=== PATIENT | female | born 1945 | race Caucasian/White ===

== ENCOUNTER 2021-08-12 21:58 | Inpatient (IN) | payer OTHER ==
[~2021-08-12] VITALS: Ht 165.1 cm; Wt 137.5 kg
--- NOTE | 2021-08-12 22:15 | NUR ---
DR. ASHBY AT BEDSIDE, MSE IN PROGRESS.
[2021-08-12 22:34] LABS: HEMATOCRIT 33.9 % (31.2-41.9); MEAN CORPUSCULAR HEMOGLOBIN 28.6 uug (24.7-32.8); MEAN CORPUSCULAR VOLUME 90.9 fL (75.5-95.3); PLATELET COUNT (AUTO) 235 K/uL (179-408)
[2021-08-12 22:40] LABS: CREATININE 1.2 mg/dL (0.6-1.3); POTASSIUM 4.8 mmol/L (3.5-5.1)
[2021-08-13] VITALS (11 sets, daily range): BP systolic 102–130; BP diastolic 40–56
[2021-08-13] MEDS ORDERED: SWABABLE VALVE TRANSFER SET EA MC ONE (00:07)
[2021-08-13] MEDS ORDERED: IOHEXOL 350 100 ML INFUS..BTL ONE ×2 (00:08→01:05)
[2021-08-13] MEDS ORDERED: IV NORMAL SALINE 250 ML IV ONE (00:08)
[2021-08-13] MEDS ORDERED: ONDANSETRON 4 MG/2 ML VIAL IV PRN (00:15)
[2021-08-13] MEDS ORDERED: FUROSEMIDE 20 MG/2 ML VIAL IV ONE ×2 (00:15→01:45)
[2021-08-13] MEDS ORDERED: REMEDY ESSENTIAL ZINC PASTE 113 GM TP PRN (00:15)
[2021-08-13] MEDS ORDERED: ENOXAPARIN SODIUM 40 MG/0.4 ML DISP.SYRIN SQ ONE ×2 (00:15→12:22)
--- NOTE | 2021-08-13 01:34 | NUR ---
Patient is resting comfortably in bed with eyes closed. Breathing even and unlabored.
[2021-08-13] MEDS ORDERED: FUROSEMIDE 40 MG/4 ML VIAL ONE (01:55)
[2021-08-13] MEDS ORDERED: CEFTRIAXONE /D5W 50ML IVPB **ER PYXIS IV ONE (01:56)
[2021-08-13] MEDS: CEFTRIAXONE 1 G in IV DEXTROSE 5% 50 ML IV SCH (01:57)
--- NOTE | 2021-08-13 03:24 | NUR ---
PT IN BED ASLEEP, RESTING COMFORTABLY.
[2021-08-13] MEDS ORDERED: DIPH25TA62 PO (05:44)
[2021-08-13] MEDS ORDERED: INSU100V28 (05:44)
[2021-08-13] MEDS ORDERED: CRAN3875 PO (05:44)
[2021-08-13] MEDS ORDERED: ZINC50TA39 PO (05:44)
[2021-08-13] MEDS ORDERED: MAGN400O6 PO (05:44)
[2021-08-13] MEDS ORDERED: CELE200C PO (05:44)
[2021-08-13] MEDS ORDERED: LORA10TA7 PO (05:44)
[2021-08-13] MEDS ORDERED: ATOR40TA PO (05:44)
[2021-08-13] MEDS ORDERED: CALC-883 PO (05:44)
[2021-08-13] MEDS ORDERED: ACET-2154 PO ×2 (05:44)
[2021-08-13] MEDS ORDERED: INSU3INS9 SQ (05:44)
[2021-08-13] MEDS ORDERED: ASCO500P18 PO (05:44)
[2021-08-13] MEDS ORDERED: DOCU-141 PO (05:44)
[2021-08-13] MEDS ORDERED: ENOX40DI SQ (05:44)
[2021-08-13] MEDS ORDERED: FURO-152 PO (05:44)
[2021-08-13] MEDS ORDERED: GABA-532 PO (05:44)
[2021-08-13] MEDS ORDERED: ALLO100T PO (05:44)
[2021-08-13] MEDS ORDERED: AMLO10TA59 PO (05:44)
[2021-08-13] MEDS ORDERED: FERR325T28 PO (05:44)
[2021-08-13] MEDS ORDERED: LOSA100T31 PO (05:44)
[2021-08-13] MEDS ORDERED: PANT40TA49 PO (05:44)
[2021-08-13] MEDS ORDERED: OLAN5TAB3 PO (05:44)
[2021-08-13] MEDS ORDERED: METO25TA6 PO (05:44)
--- NOTE | 2021-08-13 06:36 | NUR ---
PT NOTED TO BE SOILED, PROPER PERINEAL CARE RENDERED. NOW NOTED TO BE CLEAN AND DRY. DENIES ANY PAIN/DISCOMFORT. NO SOB OR LABORED BREATHING.
--- NOTE | 2021-08-13 07:06 | NUR ---
GAVE REPORT TO HÉCTOR, MORNING SHIFT. PT NOTED TO BE RESTING IN BED, EYES CLOSED. NO SOB OR LABORED BREATHING. DENIES ANY BALLESTEROS/DIZZINESS. NO N/V/D.
--- NOTE | 2021-08-13 07:10 | NUR ---
Pt recieved, resting in bed w/ both eyes closed, reamines on non rebreather mask. NSR on monitor. NAD noted at this time.
--- NOTE | 2021-08-13 07:30 | NUR ---
Willie dockery in [facility] - 08/13/21 at [address] Quevedo and Dr Ellis made aware of stat ABG results.
--- NOTE | 2021-08-13 08:57 | NUR ---
RT at the bedside for ABG.
--- NOTE | 2021-08-13 09:00 | NUR ---
PCR swab for COVID collected and taken to LAB.
[2021-08-13 09:21] LABS: ABG BASE EXCESS 6.2 mmol/L; ABG HCO3 36.4 mmol/L; ABG PO2 93.5 mmHg (75.0-100.0); ABG SITE LEFT RADIAL; ABG TOTAL HEMOGLOBIN 11.9 G/dL (12.0-16.0); COHb 0.8 % (0.5-1.5); MetHb 0.2 % (0.0-1.5); O2Hb 95.5 % (94.0-97.0)
[2021-08-13] MEDS: FUROSEMIDE 20 MG/2 ML VIAL IV SCH (09:29)
--- NOTE | 2021-08-13 09:30 | NUR ---
Dr Quevedo and Dr Ellis made aware of pt's ABG results.
[2021-08-13] MEDS ORDERED: FUROSEMIDE 20 MG/2 ML VIAL ONE (09:32)
[2021-08-13 09:36] LABS: HEMATOCRIT 35.8 % (31.2-41.9); MEAN CORPUSCULAR HEMOGLOBIN 28.7 uug (24.7-32.8); MEAN CORPUSCULAR VOLUME 92.3 fL (75.5-95.3); PLATELET COUNT (AUTO) 243 K/uL (179-408)
--- NOTE | 2021-08-13 09:37 | NUR ---
Pt started on BIPAP by RT,settings 20/8, FIO2 @ 100%.
[2021-08-13 09:49] LABS: CREATININE 1.2 mg/dL (0.6-1.3)
--- NOTE | 2021-08-13 11:21 | NUR ---
Pt is awake and responsive, tolorating BIPAP well sofar , able to make needs known.
--- NOTE | 2021-08-13 11:45 | NUR ---
Dr Alvarenga seen pt and request change of status to ICU. Nursing track inspecting supervisor notified. No ICU beds available at this time and pt will stay in ER as ICU over flow.
[2021-08-13] MEDS: FAMOTIDINE. 20 MG/2 ML VIAL IV SCH ×2 (12:22→20:51)
[2021-08-13] MEDS: ACETAzolamide SODIUM 500 MG VIAL IV SCH (12:22)
[2021-08-13] MEDS ORDERED: ACETAzolamide SODIUM 500 MG VIAL ONE (12:22)
[2021-08-13] MEDS ORDERED: FAMOTIDINE. 20 MG/2 ML VIAL IV ONE (12:22)
[2021-08-13] MEDS: ENOXAPARIN SODIUM 40 MG/0.4 ML DISP.SYRIN SQ SCH (12:32)
--- NOTE | 2021-08-13 13:02 | NUR ---
Received pt. from E.R. department brought in by Merlene via destin. On bipap20/8, and 80% FIO2. On sinus rhythm once connected to monitor, sbp of 123/48. Neurologically pt. semi-lethargic responding only to painful stimuli. Sacral area with extended blanchable redness and small areas of nonblanchable dark red skin. Patient received on a soiled and soaked in urine diaper. Patient cleaned and aparicio catheter tamazight 18 inserted following sterile techniques followed. And attending will be notified of pt's arrival.
--- NOTE | 2021-08-13 13:47 | NUR ---
Dr. Payton informed of pt's arrival. Addendum: 08/13/21 at 1348 by SARABJIT MIN RN orders to insert aparicio and picc line received and implemented.
--- NOTE | 2021-08-13 19:10 | NUR ---
received patient obtunded . morbidly obese , on bipap 20 /8 rate of 20 60 f% fio2 , shari picc line , intact , aparicio draining yellow uring , iv on left upperarm intact , bilateral lower extremities , pinkish in color , not warm to touch , us tech aware of order tomight for duplex study of le
--- NOTE | 2021-08-13 19:30 | NUR ---
Pt rec'd on Respironics V60 on BIPAP mode settings 20/8, set. resp. rate 20 and FIO2-60%. No resp. distress noted at this time and pt appears to be tolerating settings well. V-60 alarm parameters have been checked and remain audible. BVM at bedside.
--- NOTE | 2021-08-13 20:20 | NUR ---
us tech is at bedside
--- NOTE | 2021-08-13 21:03 | NUR ---
DUUPLEX BLE DONE , PLS SEE NOTES OF RESULTS
[2021-08-13] MEDS ORDERED: DEXTROSE 50% 50 ML DISP.SYRIN IV PRN (21:45)
[2021-08-13] MEDS ORDERED: VANCOMYCIN IV 2,000 MG in IV DEXTROSE 5% 500 ML IV ONE (22:00)
[2021-08-13] MEDS ORDERED: VANCOMYCIN 1000 MG VIAL ONE (22:58)
[2021-08-14] VITALS (24 sets, daily range): BP systolic 83–139; BP diastolic 35–89
--- NOTE | 2021-08-14 00:30 | NUR ---
BA WRIGHT IS STARTED TO CONTROL TEMPERATURE
[2021-08-14] MEDS: BLOOD SUGAR DIAGNOSTIC 1 EACH STRIP VI SCH ×5 (00:32→23:31)
[2021-08-14] MEDS: INSULIN REGULAR, HUMAN 300 UNIT/3 ML VIAL SQ PRN ×4 (00:33→23:32)
[2021-08-14] MEDS: CEFTRIAXONE 1 G in IV DEXTROSE 5% 50 ML IV SCH (01:21)
[2021-08-14 06:05] LABS: HEMATOCRIT 35.5 % (31.2-41.9); MEAN CORPUSCULAR HEMOGLOBIN 28.6 uug (24.7-32.8); MEAN CORPUSCULAR VOLUME 93.2 fL (75.5-95.3); PLATELET COUNT (AUTO) 217 K/uL (179-408)
[2021-08-14 06:05] LABS: *BILIRUBIN,URIN NEGATIVE (NEGATIVE); *CLARITY,URINE CLEAR (CLEAR); *COLOR,URINE YELLOW (YELLOW); *KETONES,URINE NEGATIVE (NEGATIVE); LEUKOCYTE ESTERASE ,URINE TRACE (NEGATIVE); NITRITE, URINE NEGATIVE (NEGATIVE); UGLUCOSE NEGATIVE (NEGATIVE)
[2021-08-14 06:15] LABS: *BLOOD, URINE TRACE (NEGATIVE)
--- NOTE | 2021-08-14 06:30 | NUR ---
arousable to light touch , non verbal , no spontaneous eye opening , picc line intact , almita surygger is till on , current temperature is 97.6, aparicio intact , SR, BIPAP 20/8 AT 20 FIO2 OF 60 %
[2021-08-14 06:32] LABS: BILIRUBIN,TOTAL 0.2 mg/dL (0.2-1.0); CREATININE 1.2 mg/dL (0.6-1.3); POTASSIUM 5.2 mmol/L (3.5-5.1); TOTAL PROTEIN, SERUM 6.4 g/dL (6.4-8.2); URIC ACID 7.3 mg/dL (2.6-6.0)
[2021-08-14 06:37] LABS: MAGNESIUM 2.1 mg/dL (1.8-2.4)
[2021-08-14 07:09] LABS: PHOSPHOROUS 5.6 mg/dL (2.5-4.9)
[2021-08-14 07:40] LABS: THYROID STIMULATING HORMONE 3.364 mIU/mL (0.358-3.740)
[2021-08-14] MEDS: FAMOTIDINE. 20 MG/2 ML VIAL IV SCH ×2 (08:17→21:34)
[2021-08-14] MEDS: FUROSEMIDE 20 MG/2 ML VIAL IV SCH (08:17)
[2021-08-14] MEDS: ENOXAPARIN SODIUM 40 MG/0.4 ML DISP.SYRIN SQ SCH (08:18)
[2021-08-14] MEDS: ACETAzolamide SODIUM 500 MG VIAL IV SCH (08:18)
[2021-08-14 08:36] LABS: ABG BASE EXCESS 3.6 mmol/L; ABG HCO3 33.6 mmol/L; ABG PCO2 83.1 mmHg (35.0-45.0); ABG PH 7.224 (7.350-7.450); ABG PO2 96.4 mmHg (75.0-100.0); ABG SITE RIGHT RADIAL; COHb 0.9 % (0.5-1.5); MetHb 0.3 % (0.0-1.5); O2Hb 95.7 % (94.0-97.0); VENT MODE BIPAP
[2021-08-14] MEDS: ALBUMIN HUMAN 25% 100 ML IV SCH ×3 (08:42→21:34)
[2021-08-14 09:29] LABS: BACTERIA,URINE FEW /HPF (NONE SEEN); RBC,URINE 0-3 /HPF (0-3); SQUAMOUS EPITHELIAL CELL,UR MODERATE /HPF (NONE SEEN); WBC,URINE 0-3 /HPF (0-3)
--- NOTE | 2021-08-14 10:00 | NUR ---
patient is too lethargic to have a swallow eval done. Patient can not follow commands at this time. speech therapist to come back for reevaluation at a later time when more awake.
--- NOTE | 2021-08-14 12:20 | NUR ---
bipap rate increase to [address] Alvarenga orders. rate change done by RT.
[2021-08-14] MEDS: CEFTRIAXONE 2 G in IV DEXTROSE 5% 100 ML IV SCH (14:48)
[2021-08-14] MEDS ORDERED: CRAN400C PO (15:37)
[2021-08-14] MEDS ORDERED: ASCO-375 PO (15:43)
[2021-08-14] MEDS ORDERED: INSU100V7 SQ (15:47)
[2021-08-14] MEDS ORDERED: INSULIN REGULAR, HUMAN 300 UNIT/3 ML VIAL SQ SCH (16:30)
[2021-08-14] MEDS ORDERED: VANCOMYCIN IV 1,250 MG in IV DEXTROSE 5% 250 ML IV SCH (18:00)
--- NOTE | 2021-08-14 18:39 | NUR ---
patient continues to be lethargic, continuos bipap with new rate of 26 is ongoing. patient is able to lift arms with painful stimuli and arouses with painful stimulation.
--- NOTE | 2021-08-14 19:15 | NUR ---
received patient arousable to light touch , non verbal , bipap 20/8 , rate of 26 , fio2 60 % , picc line shari picc line , aparicio intact ,
[2021-08-14] MEDS: INSULIN GLARGINE,HUM 300 UNITS/3 ML CARTRIDGE SQ SCH (21:55)
[2021-08-15] VITALS (23 sets, daily range): BP systolic 106–160; BP diastolic 49–94
[2021-08-15] MEDS: ALBUMIN HUMAN 25% 100 ML IV SCH (02:07)
[2021-08-15 05:03] LABS: HEMATOCRIT 32.8 % (31.2-41.9); MEAN CORPUSCULAR HEMOGLOBIN 28.8 uug (24.7-32.8); MEAN CORPUSCULAR VOLUME 92.3 fL (75.5-95.3); PLATELET COUNT (AUTO) 238 K/uL (179-408)
[2021-08-15 05:35] LABS: BILIRUBIN,TOTAL 0.2 mg/dL (0.2-1.0); CREATININE 0.9 mg/dL (0.6-1.3); MAGNESIUM 2.2 mg/dL (1.8-2.4); PHOSPHOROUS 3.2 mg/dL (2.5-4.9); POTASSIUM 4.2 mmol/L (3.5-5.1); TOTAL PROTEIN, SERUM 6.6 g/dL (6.4-8.2)
[2021-08-15] MEDS: BLOOD SUGAR DIAGNOSTIC 1 EACH STRIP VI SCH ×4 (06:03→23:30)
[2021-08-15] MEDS: INSULIN REGULAR, HUMAN 300 UNIT/3 ML VIAL SQ PRN ×4 (06:04→23:32)
--- NOTE | 2021-08-15 06:39 | NUR ---
responsive to light touch , bipap 20/8 rate 26 , 60 fio2% , aparicio and picc line intact , bilateral lower extremities with pinkish cellulitis , cool to touch , SR, no fever kendra , scattered small little dots on back and sacral , no open wound noted
--- NOTE | 2021-08-15 07:30 | NUR ---
Pt. bed was switched to [facility] Mattress. Will continue to monitor.
--- NOTE | 2021-08-15 08:00 | NUR ---
Received patient obtunded but able to respond to painful stimuli. Pt. on BiPAP therapy with the following settings: 20/8 rate of 26, PS 12 and FiO2 of 60%. Pt. is SR in the monitor. Weeks catheter patent draining clear and yellow urine. Bilateral lower ext. edema and redness. Pt. is on a [employer] special mattress. No new pressure ulcer noted. Safety initiated, Side rails up, bed in low and locked position, will continue to monitor.
[2021-08-15] MEDS: FAMOTIDINE. 20 MG/2 ML VIAL IV SCH ×2 (08:39→20:55)
[2021-08-15] MEDS: FUROSEMIDE 20 MG/2 ML VIAL IV SCH (08:39)
[2021-08-15] MEDS: ACETAzolamide SODIUM 500 MG VIAL IV SCH (08:41)
[2021-08-15] MEDS: REMEDY ESSENTIAL ZINC PASTE 113 GM TOP SCH ×2 (08:46→20:56)
[2021-08-15] MEDS: ENOXAPARIN SODIUM 40 MG/0.4 ML DISP.SYRIN SQ SCH (08:46)
[2021-08-15] MEDS ORDERED: ENOXAPARIN SODIUM 40 MG/0.4 ML DISP.SYRIN SQ SCH (09:00)
[2021-08-15 09:09] LABS: ABG BASE EXCESS 8.1 mmol/L; ABG HCO3 37.9 mmol/L; ABG PCO2 87.3 mmHg (35.0-45.0); ABG PH 7.256 (7.350-7.450); ABG PO2 102.4 mmHg (75.0-100.0); ABG SITE RIGHT RADIAL; ABG TOTAL HEMOGLOBIN 11.4 G/dL (12.0-16.0); COHb 0.7 % (0.5-1.5); O2Hb 97.1 % (94.0-97.0); VENT MODE BIPAP
[2021-08-15] MEDS ORDERED: FUROSEMIDE 20 MG/2 ML VIAL IV ONE (09:15)
[2021-08-15] MEDS: VANCOMYCIN IV 2,000 MG in IV DEXTROSE 5% 500 ML IV SCH (09:23)
--- NOTE | 2021-08-15 09:45 | NUR ---
Tape Recorder Mechanic at bedside, new orders given. Will continue to monitor.
--- NOTE | 2021-08-15 11:34 | NUR ---
Titrated FiO2 down to 50% per MD order. Will continue to monitor.
--- NOTE | 2021-08-15 11:54 | NUR ---
FIO2 TITRATED DOWN TO 30%. SPO2 92%. PER MD ORDER SPO2 TO BE MAINTAINED BETWEEN 88-92%
--- NOTE | 2021-08-15 12:36 | NUR ---
WOUND CARE CONSULT: REVIEWED CHART, NURSING DOCUMENTATION AND PHOTOS WHICH INDICATE SPOTTY RASH PRESENT ON ADMISSION. DEFER TO PMD FOR SKIN CONDITION. RECOMMENDATIONS MADE FOR SKIN PROTECTION. DISCUSSED WITH NURSING STAFF. [facility] MD IN AGREEMENT WITH PLAN OF CARE.
[2021-08-15] MEDS: CEFTRIAXONE 2 G in IV DEXTROSE 5% 100 ML IV SCH (13:41)
--- NOTE | 2021-08-15 14:15 | NUR ---
Pt was found with moderate amount of thick yellowish hendricks secretions around mouth and inside the BiPAP full face mask, unable to suction and patient is unable to clear. For airway protection, risk for aspiration, preparing for intubation. Will continue to monitor. Addendum: 08/15/21 at 1710 by TANNER RUIZ RN Correction on time 161
--- NOTE | 2021-08-15 15:13 | NUR ---
NGT inserted. CXR ordered. Will continue to monitor.
--- NOTE | 2021-08-15 15:14 | NUR ---
Patient had protecta-gel in place with the full face mask, on BiPAP continuos use. Noted skin breakdown on the bridge of the nose. Picture taken and placed in chart. Will continue to monitor.
--- NOTE | 2021-08-15 15:24 | NUR ---
FIO2 TITRATED DOWN TO 26% WITH SPO2 AT 93%
[2021-08-15] MEDS ORDERED: NOREPINEPHRINE BITARTRATE 32 MG in IV NORMAL SALINE 218 ML IV PRN (16:15)
[2021-08-15] MEDS ORDERED: NOREPINEPHRINE BITARTRATE 8 MG in IV NORMAL SALINE 242 ML IV PRN (16:15)
--- NOTE | 2021-08-15 16:15 | NUR ---
Pt. vomited moderate amount of thick and yellowish hendricks secretions.
[2021-08-15] MEDS: PROPOFOL 100 ML IV PRN ×3 (16:35→20:50)
--- NOTE | 2021-08-15 16:35 | NUR ---
Pt. intubated successfully, with 200 mg of Succinylcholine and 20 mg of Etomidate with a tube size of 7 and 23 on the lip line. Will continue to monitor. Addendum: 08/15/21 at 1709 by TANNER RUIZ RN Intubated by Dr. Feliberto Mccoy in 20 mins.
--- NOTE | 2021-08-15 16:45 | NUR ---
Vent setting per ED Dr. Dao is as follows AC 20, PEEP of 5, FiO2 50% and TV 550. Will continue to monitor.
[2021-08-15] MEDS ORDERED: ETOMIDATE 20 MG/10 ML VIAL ONE (17:00)
[2021-08-15] MEDS ORDERED: FUROSEMIDE 20 MG/2 ML VIAL IV SCH (17:00)
[2021-08-15] MEDS ORDERED: SUCCINYLCHOLINE CHLORIDE 200 MG/10 ML VIAL ONE (17:00)
[2021-08-15 17:28] LABS: ABG BASE EXCESS 6.1 mmol/L; ABG HCO3 33.3 mmol/L; ABG PH 7.348 (7.350-7.450); ABG PO2 61.4 mmHg (75.0-100.0); ABG SITE RIGHT RADIAL; ABG TOTAL HEMOGLOBIN 11.5 G/dL (12.0-16.0); COHb 0.5 % (0.5-1.5); MetHb 0.3 % (0.0-1.5); O2Hb 90.6 % (94.0-97.0); VENT MODE VENT - A/C; VT, ABG 550 mL
--- NOTE | 2021-08-15 17:47 | NUR ---
PT INTUBATED WITH 7.0 ETT SECURED AT 23CM @ LIP. VENT SETTINGS AC20/VT550/75%/5 PEEP. POST INTUBATION ABG DONE. WILL CONTINUE TO TITRATE FIO2 TO MAINTAIN SPO2 BETWEEN 88-92%
[2021-08-15] MEDS: FUROSEMIDE 40 MG/4 ML VIAL IVP SCH (17:49)
--- NOTE | 2021-08-15 18:00 | NUR ---
Per Dr. Dao, he spoke to Dr. Gardner and Dr. Brandt (Thoracic Surgeon) regarding results of the Chest xray s/p intubation. Discussion about chest tube placement if needed. Follow up CXR now. Will continue to monitor.
--- NOTE | 2021-08-15 18:19 | NUR ---
follow up repeat cxr done at this time per Dr. jiménez.
[2021-08-15] MEDS: IV NORMAL SALINE 250 ML IV PRN (20:28)
[2021-08-15] MEDS: INSULIN GLARGINE,HUM 300 UNITS/3 ML CARTRIDGE SQ SCH (20:55)
[2021-08-16] VITALS (25 sets, daily range): BP systolic 106–154; BP diastolic 49–84
--- NOTE | 2021-08-16 02:36 | NUR ---
PATIENT ON CONT JOYNER VENT WITH 7.0 ET/TUBE IN PLACE AND SECURED WITH ANCHOR FAST, SUCTIONED SOME BLOODY TINGE SECRETIONS FROM ORAL CAVITY, PT ON CURRENT VENT SETTINGS, A/C 20,550NL, PEEP5, 75% TITRATE TO 65%,ALL VENT ALARMS GOOD, VENT PLUGGED INTO RED WALL OUT LETElva GALEASP Addendum: 08/16/21 at 0239 by AIXA AL RT Amended: Links added.
[2021-08-16] MEDS: VANCOMYCIN IV 2,000 MG in IV DEXTROSE 5% 500 ML IV SCH (04:25)
[2021-08-16] MEDS: BLOOD SUGAR DIAGNOSTIC 1 EACH STRIP VI SCH ×4 (05:10→23:36)
[2021-08-16] MEDS: INSULIN REGULAR, HUMAN 300 UNIT/3 ML VIAL SQ PRN ×4 (05:11→23:37)
[2021-08-16 05:17] LABS: HEMATOCRIT 32.7 % (31.2-41.9); MEAN CORPUSCULAR HEMOGLOBIN 28.1 uug (24.7-32.8); MEAN CORPUSCULAR VOLUME 90.2 fL (75.5-95.3); PLATELET COUNT (AUTO) 256 K/uL (179-408)
[2021-08-16 05:26] LABS: PHOSPHOROUS 1.1 mg/dL (2.5-4.9)
[2021-08-16 05:37] LABS: CREATININE 0.8 mg/dL (0.6-1.3); POTASSIUM 3.1 mmol/L (3.5-5.1)
[2021-08-16] MEDS: PROPOFOL 100 ML IV PRN ×5 (06:37→23:45)
[2021-08-16] MEDS ORDERED: POTASSIUM PHOSPHATE MM 7.5 MMOL in IV NORMAL SALINE 97.5 ML IV ONE (07:45)
[2021-08-16 08:15] LABS: ABG BASE EXCESS 10.4 mmol/L; ABG HCO3 35.1 mmol/L; ABG PCO2 47.7 mmHg (35.0-45.0); ABG PH 7.485 (7.350-7.450); ABG PO2 57.1 mmHg (75.0-100.0); ABG SITE RIGHT RADIAL; COHb 0.3 % (0.5-1.5); MetHb 0.3 % (0.0-1.5); O2Hb 91.6 % (94.0-97.0); VENT MODE VENT - A/C; VT, ABG 550 mL
[2021-08-16] MEDS: ACETAMINOPHEN 325 MG TABLET PO PRN (08:15)
[2021-08-16] MEDS: ACETAzolamide SODIUM 500 MG VIAL IV SCH (08:19)
[2021-08-16] MEDS: FAMOTIDINE. 20 MG/2 ML VIAL IV SCH ×2 (08:19→21:11)
[2021-08-16] MEDS: POTASSIUM CHLORIDE 50 ML IV SCH ×4 (08:19→14:11)
[2021-08-16] MEDS: FUROSEMIDE 40 MG/4 ML VIAL IVP SCH (08:19)
[2021-08-16] MEDS: REMEDY ESSENTIAL ZINC PASTE 113 GM TOP SCH ×2 (08:19→21:24)
[2021-08-16] MEDS: ENOXAPARIN SODIUM 40 MG/0.4 ML DISP.SYRIN SQ SCH (08:25)
--- NOTE | 2021-08-16 08:30 | NUR ---
Called dietary for reevaluation on feeding due to patient being intubated and on propofol. will call back for changes and to initiate feeding.
[2021-08-16] MEDS ORDERED: POTASSIUM PHOSPHATE MM 15 MMOL in IV NORMAL SALINE 250 ML IV ONE (11:00)
[2021-08-16] MEDS ORDERED: VITAL AF 1.2 1,000 ML LIQUID NG PRN ×2 (14:00→14:05)
--- NOTE | 2021-08-16 14:55 | NUR ---
Started NGT tubing Vital AF at 10 cc/hr. Will continue to monitor.
[2021-08-16] MEDS: CEFTRIAXONE 2 G in IV DEXTROSE 5% 100 ML IV SCH (16:52)
[2021-08-16] MEDS: FUROSEMIDE 20 MG/2 ML VIAL IVP SCH (16:54)
[2021-08-16] MEDS: PROTEIN SUPPLEMENT (PROSTAT) 30 ML LIQUID GT SCH (16:55)
[2021-08-16] MEDS ORDERED: FUROSEMIDE 40 MG/4 ML VIAL IVP SCH (17:00)
--- NOTE | 2021-08-16 19:10 | NUR ---
received patieent is sedated , on propofol at 25 mcg , vent setting at ac 20 tv 550 p 5 fio2 30 fio2% , ngt p[lacement checekf and verified , no residual noted , vital af running at 20 ml , shari picc and aparicio intact , no fever , bilateral legs light pink , cool to touch , scattered small rashes on the back and sacral area
[2021-08-16] MEDS: INSULIN GLARGINE,HUM 300 UNITS/3 ML CARTRIDGE SQ SCH (21:22)
[2021-08-17] VITALS (24 sets, daily range): BP systolic 97–150; BP diastolic 45–75
--- NOTE | 2021-08-17 00:13 | NUR ---
PATIENT ON CONT JOYNER VENT WITH 7.0 ET/TUBE IN PLACE AND SECURED WITH ANCHOR FAST , MOVE X 6 , SUCTIONED X 3 AND SUCTION MOUTH WITH YANKAUER, SUCTIONED SLIGHT BLOODY SONIA SECRETIONS, MOVE ANCHOR FAST X 6 , SUCTION X 3 , ALL VENT ALARMS GOOD, VENT SETTINGS, A/C 20,550ML, PEEP5 ,FIO2 @ 30%. Stacy AL RCP Addendum: 08/17/21 at 0023 by AIXA AL RT Amended: Links added.
[2021-08-17] MEDS: VANCOMYCIN IV 2,000 MG in IV DEXTROSE 5% 500 ML IV SCH ×2 (01:02→20:31)
[2021-08-17] MEDS: BLOOD SUGAR DIAGNOSTIC 1 EACH STRIP VI SCH ×4 (05:26→23:47)
[2021-08-17 05:31] LABS: HEMATOCRIT 36.2 % (31.2-41.9); MEAN CORPUSCULAR HEMOGLOBIN 28.1 uug (24.7-32.8); PLATELET COUNT (AUTO) 260 K/uL (179-408)
[2021-08-17] MEDS: INSULIN REGULAR, HUMAN 300 UNIT/3 ML VIAL SQ PRN ×4 (05:34→23:49)
[2021-08-17 05:50] LABS: BILIRUBIN,TOTAL 0.3 mg/dL (0.2-1.0); CREATININE 0.8 mg/dL (0.6-1.3); MAGNESIUM 1.8 mg/dL (1.8-2.4); PHOSPHOROUS 2.5 mg/dL (2.5-4.9); POTASSIUM 3.1 mmol/L (3.5-5.1); TOTAL PROTEIN, SERUM 6.2 g/dL (6.4-8.2)
[2021-08-17] MEDS: PROPOFOL 100 ML IV PRN ×5 (06:47→22:50)
[2021-08-17] MEDS ORDERED: POTASSIUM CHLORIDE 20 MEQ POWDER PACKET GT ONE (07:30)
[2021-08-17 07:50] LABS: ABG BASE EXCESS 2.2 mmol/L; ABG HCO3 25.3 mmol/L; ABG PCO2 34.5 mmHg (35.0-45.0); ABG PH 7.484 (7.350-7.450); ABG PO2 78.3 mmHg (75.0-100.0); ABG SITE RIGHT RADIAL; ABG TOTAL HEMOGLOBIN 11.9 G/dL (12.0-16.0); COHb 0.6 % (0.5-1.5); MetHb 0.3 % (0.0-1.5); O2Hb 95.4 % (94.0-97.0); VENT MODE VENT - A/C; VT, ABG 550 mL
[2021-08-17] MEDS: POTASSIUM CHLORIDE 50 ML IV SCH ×4 (08:18→11:51)
[2021-08-17] MEDS: PROTEIN SUPPLEMENT (PROSTAT) 30 ML LIQUID GT SCH ×3 (08:19→17:19)
[2021-08-17] MEDS: FUROSEMIDE 20 MG/2 ML VIAL IVP SCH ×2 (08:19→17:18)
[2021-08-17] MEDS: ACETAzolamide SODIUM 500 MG VIAL IV SCH (08:19)
[2021-08-17] MEDS: FAMOTIDINE. 20 MG/2 ML VIAL IV SCH (08:21)
[2021-08-17] MEDS: REMEDY ESSENTIAL ZINC PASTE 113 GM TOP SCH ×2 (08:24→20:02)
[2021-08-17] MEDS: ENOXAPARIN SODIUM 40 MG/0.4 ML DISP.SYRIN SQ SCH (08:53)
[2021-08-17] MEDS: CEFTRIAXONE 2 G in IV DEXTROSE 5% 100 ML IV SCH (14:13)
--- NOTE | 2021-08-17 17:20 | NUR ---
PT REMAINS INTUBATED ON CMV. NO VENT CHANGES MADE TODAY. PT IS TOLERATING VENT SETTINGS WELL, NO RESP. DISTRESS NOTED. ETT REPOSITIONED Q2. SUCTION PRN. WILL CONTINUE TO MONITOR.
--- NOTE | 2021-08-17 19:00 | NUR ---
Received report. Patient is sedated, responsive to stimuli. NSR on the monitor, 58bpm. ET 7, LL 23 with the vent settings of AC 20, TV 550, PEEP 5, FiO2 30%, O2 sat 96%. NG TF Vital AF @ 30mls/hr x 22 hours, no gastric residual noted. JOSE PICC Propofol @30mcg/kg/min, NS @TKO. Assessment done. Weeks catheter draining well to gravity. Will continue to monitor closely.
[2021-08-17] MEDS: FAMOTIDINE 20 MG TABLET GT SCH (20:01)
[2021-08-17] MEDS: INSULIN GLARGINE,HUM 300 UNITS/3 ML CARTRIDGE SQ SCH (20:10)
[2021-08-18] VITALS (24 sets, daily range): BP systolic 87–148; BP diastolic 44–73
[2021-08-18] MEDS: PROPOFOL 100 ML IV PRN ×6 (02:52→20:50)
[2021-08-18] MEDS: IV NORMAL SALINE 250 ML IV PRN ×2 (03:07→08:19)
--- NOTE | 2021-08-18 04:00 | NUR ---
AM care done. Linen changed.
[2021-08-18] MEDS: BLOOD SUGAR DIAGNOSTIC 1 EACH STRIP VI SCH ×4 (05:07→23:39)
[2021-08-18] MEDS: INSULIN REGULAR, HUMAN 300 UNIT/3 ML VIAL SQ PRN ×4 (05:09→23:43)
[2021-08-18 05:19] LABS: HEMATOCRIT 35.6 % (31.2-41.9); MEAN CORPUSCULAR HEMOGLOBIN 29.1 uug (24.7-32.8); MEAN CORPUSCULAR VOLUME 89.6 fL (75.5-95.3); PLATELET COUNT (AUTO) 243 K/uL (179-408)
[2021-08-18 05:26] LABS: CARBON DIOXIDE 29 mmol/L (21-32); CHLORIDE 102 mmol/L (98-107); CREATININE 0.7 mg/dL (0.6-1.3); GLUCOSE 241 mg/dL (74-106); MAGNESIUM 1.7 mg/dL (1.8-2.4); PHOSPHOROUS 3.2 mg/dL (2.5-4.9); POTASSIUM 3.3 mmol/L (3.5-5.1); UREA NITROGEN, BLOOD 33 mg/dL (7-18)
--- NOTE | 2021-08-18 05:30 | NUR ---
Seen and examined by ALE Gardner, report given, with new orders. Noted and carried out.
[2021-08-18] MEDS ORDERED: POTASSIUM CHLORIDE 20 MEQ TAB.PRT.SR PO ONE (05:45)
[2021-08-18] MEDS: MAGNESIUM SULFATE/D5W 100 ML IV SCH ×2 (05:54→06:55)
[2021-08-18 06:05] LABS: BAND % (MANUAL) 3 % (0-10); EOSINOPHILS % (MANUAL) 4 % (0-8); LYMPHOCYTES % (MANUAL) 2 % (20-40); METAMYELOCYTES % 1 % (0-1); MONOCYTES % (MANUAL) 2 % (2-10); MYELOCYTES % 1 % (0-0); NEUTROPHILS % (MANUAL) 87 % (42-75)
--- NOTE | 2021-08-18 06:15 | NUR ---
Seen and examined by Dr. Randall, report given, with no orders.
[2021-08-18] MEDS: FAMOTIDINE 20 MG TABLET GT SCH ×2 (08:13→20:59)
[2021-08-18] MEDS: ACETAzolamide SODIUM 500 MG VIAL IV SCH (08:13)
[2021-08-18] MEDS: FUROSEMIDE 20 MG/2 ML VIAL IVP SCH ×2 (08:13→17:48)
[2021-08-18] MEDS: POTASSIUM CHLORIDE 50 ML IV SCH ×4 (08:14→12:16)
[2021-08-18] MEDS: PROTEIN SUPPLEMENT (PROSTAT) 30 ML LIQUID GT SCH ×3 (08:14→17:49)
[2021-08-18] MEDS: ENOXAPARIN SODIUM 40 MG/0.4 ML DISP.SYRIN SQ SCH (08:15)
[2021-08-18 08:17] LABS: ABG BASE EXCESS 1.4 mmol/L; ABG HCO3 25.3 mmol/L; ABG PCO2 37.1 mmHg (35.0-45.0); ABG PH 7.451 (7.350-7.450); ABG PO2 73.6 mmHg (75.0-100.0); ABG SITE LEFT RADIAL; COHb 0.8 % (0.5-1.5); MetHb 0.3 % (0.0-1.5); O2Hb 94.3 % (94.0-97.0); VENT MODE VENT - A/C; VT, ABG 550 mL
[2021-08-18] MEDS: REMEDY ESSENTIAL ZINC PASTE 113 GM TOP SCH ×2 (08:20→20:58)
[2021-08-18] MEDS ORDERED: FUROSEMIDE 20 MG/2 ML VIAL IV ONE (10:30)
[2021-08-18] MEDS: CEFTRIAXONE 2 G in IV DEXTROSE 5% 100 ML IV SCH (14:38)
--- NOTE | 2021-08-18 19:30 | NUR ---
RENATO LOZANO [phone] STATED: He is her only friend X 6 yrs & like family to her. Wanted prognosis: given [facility] physician's telephone #.
[2021-08-18] MEDS: INSULIN GLARGINE,HUM 300 UNITS/3 ML CARTRIDGE SQ SCH (20:57)
[2021-08-18] MEDS: VANCOMYCIN IV 1,750 MG in IV DEXTROSE 5% 500 ML IV SCH (23:15)
[2021-08-19] VITALS (24 sets, daily range): BP systolic 89–165; BP diastolic 49–86
[2021-08-19] MEDS: PROPOFOL 100 ML IV PRN ×7 (00:18→22:39)
[2021-08-19] MEDS: BLOOD SUGAR DIAGNOSTIC 1 EACH STRIP VI SCH ×4 (05:07→23:36)
[2021-08-19] MEDS: INSULIN REGULAR, HUMAN 300 UNIT/3 ML VIAL SQ PRN ×4 (05:08→23:37)
[2021-08-19 05:31] LABS: HEMATOCRIT 37.1 % (31.2-41.9); MEAN CORPUSCULAR HEMOGLOBIN 27.9 uug (24.7-32.8); MEAN CORPUSCULAR VOLUME 89.4 fL (75.5-95.3); PLATELET COUNT (AUTO) 260 K/uL (179-408)
[2021-08-19 05:42] LABS: CREATININE 0.7 mg/dL (0.6-1.3); MAGNESIUM 2.4 mg/dL (1.8-2.4); PHOSPHOROUS 3.5 mg/dL (2.5-4.9); POTASSIUM 3.6 mmol/L (3.5-5.1)
--- NOTE | 2021-08-19 06:45 | NUR ---
0600 reduced Diprivan 10 mkm. 0645 Initiated 28% FiO2, CPAP +5, PSV 10. Anticipate: ABG 0800.
--- NOTE | 2021-08-19 07:20 | NUR ---
Patient received on CPAP mode for weaning trial. Patient noted to have declining oxygen saturations, contacted RT to initiate the blood gas and place patient back on AC mode.
--- NOTE | 2021-08-19 07:30 | NUR ---
RT PT RECEIVED ON CPAP PT WAS THIS TIME WAS IN RESPIRATORY DISTRESS WITH A LOW SPO2 <88% PT NOT TOLERATING WEANING WELL ABG WAS DONE AND PLACE BACK ON AC PER MD ORDER. WILL CONTINUE TO MONITOR PT. PT TOLERATING AC MODE AT THIS THIS TIME RN AWARE.
[2021-08-19 07:43] LABS: ABG BASE EXCESS -0.6 mmol/L; ABG HCO3 26.6 mmol/L; ABG PCO2 54.4 mmHg (35.0-45.0); ABG PH 7.307 (7.350-7.450); ABG PO2 50.9 mmHg (75.0-100.0); ABG SITE RIGHT RADIAL; ABG TOTAL HEMOGLOBIN 13.4 G/dL (12.0-16.0); COHb 0.7 % (0.5-1.5); MetHb 0.2 % (0.0-1.5); O2Hb 79.8 % (94.0-97.0); VENT MODE VENT - CPAP
[2021-08-19] MEDS: PROTEIN SUPPLEMENT (PROSTAT) 30 ML LIQUID GT SCH ×3 (08:04→17:54)
[2021-08-19] MEDS: FAMOTIDINE 20 MG TABLET GT SCH ×2 (08:06→20:37)
[2021-08-19] MEDS: FUROSEMIDE 20 MG/2 ML VIAL IVP SCH ×2 (08:06→17:54)
[2021-08-19] MEDS: REMEDY ESSENTIAL ZINC PASTE 113 GM TOP SCH ×2 (08:08→20:39)
[2021-08-19] MEDS: ENOXAPARIN SODIUM 40 MG/0.4 ML DISP.SYRIN SQ SCH (08:08)
[2021-08-19] MEDS ORDERED: POTASSIUM CHLORIDE 20 MEQ POWDER PACKET GT ONE (09:45)
[2021-08-19] MEDS: IV NORMAL SALINE 250 ML IV PRN (13:14)
[2021-08-19] MEDS: CEFTRIAXONE 2 G in IV DEXTROSE 5% 100 ML IV SCH (13:47)
--- NOTE | 2021-08-19 14:49 | NUR ---
Patient noted to have decreased BP, contacted Dr. Gardner for orders of levophed. Replaced BP cuff to alternate arm for recheck sbp 91. Awaiting call back from Dr. Gardner. Tube feeding residual noted to be 300cc. Placed tube feeding on hold at this time.
[2021-08-19] MEDS: MAGNESIUM HYDROXIDE 30 ML LIQUID UDC PO PRN (17:53)
[2021-08-19] MEDS: VANCOMYCIN IV 1,750 MG in IV DEXTROSE 5% 500 ML IV SCH (20:37)
[2021-08-19] MEDS: INSULIN GLARGINE,HUM 300 UNITS/3 ML CARTRIDGE SQ SCH (20:38)
[2021-08-20] VITALS (24 sets, daily range): BP systolic 82–162; BP diastolic 43–84
[2021-08-20] MEDS: PROPOFOL 100 ML IV PRN ×6 (03:02→22:47)
[2021-08-20 05:17] LABS: HEMATOCRIT 35.6 % (31.2-41.9); MEAN CORPUSCULAR HEMOGLOBIN 28.1 uug (24.7-32.8); MEAN CORPUSCULAR VOLUME 89.2 fL (75.5-95.3); PLATELET COUNT (AUTO) 240 K/uL (179-408)
[2021-08-20 05:28] LABS: BILIRUBIN,TOTAL 0.2 mg/dL (0.2-1.0); CREATININE 0.7 mg/dL (0.6-1.3); MAGNESIUM 2.4 mg/dL (1.8-2.4); PHOSPHOROUS 3.4 mg/dL (2.5-4.9); POTASSIUM 3.7 mmol/L (3.5-5.1); TOTAL PROTEIN, SERUM 5.9 g/dL (6.4-8.2)
[2021-08-20] MEDS: INSULIN REGULAR, HUMAN 300 UNIT/3 ML VIAL SQ PRN ×3 (05:45→17:26)
[2021-08-20] MEDS: BLOOD SUGAR DIAGNOSTIC 1 EACH STRIP VI SCH ×3 (05:46→17:23)
--- NOTE | 2021-08-20 06:35 | NUR ---
0600 reduced Diprivan 10 mkm. 0630 Initiated 40% FiO2, CPAP +5, PSV 10. Anticipate: ABG 0800.
--- NOTE | 2021-08-20 07:20 | NUR ---
PT RECEIVED ON CPAP 5, PSV 10, 40% FIO2. PT EYES ARE OPEN, BUT IS UNABLE TO FOLLOW COMMANDS. VOLUMES BETWEEN 200-300'S OBSERVED, INCREASED WOB AND ACCESSORY MUSCLES BEING USED NOTED. PT PLACED BACK ON PREVIOUS A/C SETTINGS, RN NOTIFIED. WILL CONTINUE TO MONITOR AND FOLLOW CURRENT RESP. TREATMENTS ORDERED.
[2021-08-20] MEDS: PROTEIN SUPPLEMENT (PROSTAT) 30 ML LIQUID GT SCH ×3 (08:01→17:23)
[2021-08-20] MEDS: FAMOTIDINE 20 MG TABLET GT SCH ×2 (08:01→19:49)
[2021-08-20] MEDS: REMEDY ESSENTIAL ZINC PASTE 113 GM TOP SCH ×2 (08:03→19:52)
[2021-08-20] MEDS: ENOXAPARIN SODIUM 40 MG/0.4 ML DISP.SYRIN SQ SCH (08:04)
[2021-08-20 08:14] LABS: ABG BASE EXCESS -1.3 mmol/L; ABG HCO3 26.7 mmol/L; ABG PCO2 59.9 mmHg (35.0-45.0); ABG PH 7.267 (7.350-7.450); ABG PO2 79.9 mmHg (75.0-100.0); ABG SITE LEFT BRACHIAL; ABG TOTAL HEMOGLOBIN 13.2 G/dL (12.0-16.0); COHb 1.1 % (0.5-1.5); MetHb 0.3 % (0.0-1.5); O2Hb 93.3 % (94.0-97.0); VENT MODE VENT - CPAP
[2021-08-20] MEDS ORDERED: FUROSEMIDE 40 MG/4 ML VIAL IVP SCH (09:00)
[2021-08-20] MEDS ORDERED: FLEET ENEMA 133 ML BOTTLE RC PRN (09:45)
[2021-08-20] MEDS: LACTULOSE 20 G/30 ML LIQUID UDC PO PRN (09:49)
[2021-08-20] MEDS: ALBUMIN HUMAN 25% 100 ML IV SCH ×3 (09:50→19:50)
[2021-08-20] MEDS: FUROSEMIDE 40 MG/4 ML VIAL IVP SCH (15:36)
--- NOTE | 2021-08-20 18:16 | NUR ---
PT REMAINS INTUBATED ON CMV. PT IS TOLERATING CURRENT SETTINGS WELL, SPO2 AND RESPIRATIONS WNL. NO RESP. DISTRESS NOTED. ETT REPOSITIONED Q2. SUCTION PRN. WILL CONTINUE TO MONITOR AND FOLLOW CURRENT RESP. TREATMENTS ORDERED.
[2021-08-20] MEDS: INSULIN GLARGINE,HUM 300 UNITS/3 ML CARTRIDGE SQ SCH (19:51)
--- NOTE | 2021-08-20 21:30 | NUR ---
Noemí ID in the unit to see patient and updated.
[2021-08-21] VITALS (24 sets, daily range): BP systolic 136–167; BP diastolic 43–82
[2021-08-21] MEDS: FUROSEMIDE 40 MG/4 ML VIAL IVP SCH ×4 (00:13→23:38)
[2021-08-21] MEDS: BLOOD SUGAR DIAGNOSTIC 1 EACH STRIP VI SCH ×5 (00:13→23:36)
[2021-08-21] MEDS: INSULIN REGULAR, HUMAN 300 UNIT/3 ML VIAL SQ PRN ×5 (00:14→23:37)
[2021-08-21] MEDS: PROPOFOL 100 ML IV PRN ×2 (03:03→07:21)
[2021-08-21] MEDS: ALBUMIN HUMAN 25% 100 ML IV SCH (03:12)
[2021-08-21 05:41] LABS: HEMATOCRIT 35.6 % (31.2-41.9); MEAN CORPUSCULAR HEMOGLOBIN 28.1 uug (24.7-32.8); MEAN CORPUSCULAR VOLUME 88.5 fL (75.5-95.3); PLATELET COUNT (AUTO) 261 K/uL (179-408)
[2021-08-21 05:58] LABS: CREATININE 0.6 mg/dL (0.6-1.3); MAGNESIUM 2.3 mg/dL (1.8-2.4); PHOSPHOROUS 2.6 mg/dL (2.5-4.9); POTASSIUM 3.2 mmol/L (3.5-5.1)
--- NOTE | 2021-08-21 06:22 | NUR ---
Decreased propofol at this time to 10mcg for weaning purposes.
--- NOTE | 2021-08-21 06:25 | NUR ---
uneventful night. patient vented well with settings, vitals stable throughout night and diuresed with lasix and albumin as ordered. no bowel movement noted for this patient.
--- NOTE | 2021-08-21 06:50 | NUR ---
patient is on cpap at this time. patient grimaces and is able to open eyes.
[2021-08-21] MEDS: PROTEIN SUPPLEMENT (PROSTAT) 30 ML LIQUID GT SCH ×3 (07:27→17:02)
[2021-08-21] MEDS ORDERED: POTASSIUM CHLORIDE 20 MEQ POWDER PACKET GT ONE (07:45)
[2021-08-21] MEDS: POTASSIUM CHLORIDE 50 ML IV SCH ×4 (07:48→10:49)
[2021-08-21 08:03] LABS: ABG BASE EXCESS 4.1 mmol/L; ABG HCO3 29.6 mmol/L; ABG PCO2 48.5 mmHg (35.0-45.0); ABG PH 7.404 (7.350-7.450); ABG PO2 92.3 mmHg (75.0-100.0); ABG SITE LEFT RADIAL; ABG TOTAL HEMOGLOBIN 12.7 G/dL (12.0-16.0); COHb 0.2 % (0.5-1.5); CPAP,BG 12 cmH20; MetHb 0.3 % (0.0-1.5); O2Hb 96.1 % (94.0-97.0); VENT MODE CPAP
[2021-08-21] MEDS: FAMOTIDINE 20 MG TABLET GT SCH ×2 (08:17→20:10)
[2021-08-21] MEDS: REMEDY ESSENTIAL ZINC PASTE 113 GM TOP SCH ×2 (08:18→20:11)
[2021-08-21] MEDS: ENOXAPARIN SODIUM 40 MG/0.4 ML DISP.SYRIN SQ SCH (08:23)
[2021-08-21] MEDS ORDERED: LOSARTAN POTASSIUM 50 MG TABLET PO SCH (09:00)
[2021-08-21] MEDS ORDERED: DC PROPOFOL ONCE EXTUBATED XX PRN (09:45)
--- NOTE | 2021-08-21 10:28 | NUR ---
RECEIVED ORDERS FROM FOR EXTUBATION. PT EXTUBATED AT THIS TIME WITH THE ASSIST OF RT Gardner. PT PLACED ON N/C 5LPM AND SYLWIA POST EXTUBATION WELL. WILL CONTINUE TO MONITOR THROUGH OUT SHIFT.
[2021-08-21] MEDS: IPRATROPIUM BROMIDE 0.5 MG/2.5 ML NEBU NEB PRN (11:32)
[2021-08-21] MEDS: ALBUTEROL SULFATE 2.5 MG/3 ML NEBU NEB PRN (11:32)
[2021-08-21] MEDS: MORPHINE SULFATE 4 MG/1 ML DISP.SYRIN IV PRN ×2 (12:26→19:26)
[2021-08-21] MEDS: LACTULOSE 20 G/30 ML LIQUID UDC PO PRN ×2 (17:35→17:39)
[2021-08-21] MEDS: hydrALAZINE HCL 20 MG/1 ML VIAL IV PRN (18:43)
--- NOTE | 2021-08-21 19:30 | NUR ---
rounds made patient in bed alert but oriented only to name .open eyes and moved upper and lower extremities slow and weak .s/p extubation today tolerating 02 nasal cannula at 3 l/min .TF in progress on vital 1.2 @ 30 ml/hr in progress ,aspiration precaution observed ,hob up .continue to monitor v/s and advised to call for help and assisted .
[2021-08-21] MEDS: INSULIN GLARGINE,HUM 300 UNITS/3 ML CARTRIDGE SQ SCH (20:15)
--- NOTE | 2021-08-21 20:30 | NUR ---
patient screaming for water , given ice chips hob up aspiration precaution observed .patient tolerated ice chips , for speech eval in am .
--- NOTE | 2021-08-21 22:30 | NUR ---
using the [employer] bed turned and reposition patient . offloaded back with pillows BUE/BLE elevated with pillows .
[2021-08-22] VITALS (18 sets, daily range): BP systolic 118–155; BP diastolic 53–100
--- NOTE | 2021-08-22 | NUR ---
fingerstick done and follow insulin sliding scale .see emar . tolerating tube feedings very monimal residual 10 ml . continue with tube feedings . pain medication morphine given prn for pain.
[2021-08-22] MEDS: MORPHINE SULFATE 4 MG/1 ML DISP.SYRIN IV PRN (00:30)
--- NOTE | 2021-08-22 04:30 | NUR ---
am care done ,bath patient changed soiled linens and gown . f/c care done .turned and reposition .
[2021-08-22 05:06] LABS: HEMATOCRIT 40.3 % (31.2-41.9); MEAN CORPUSCULAR HEMOGLOBIN 28.1 uug (24.7-32.8); MEAN CORPUSCULAR VOLUME 88.9 fL (75.5-95.3); PLATELET COUNT (AUTO) 310 K/uL (179-408)
[2021-08-22] MEDS: BLOOD SUGAR DIAGNOSTIC 1 EACH STRIP VI SCH ×4 (05:20→23:13)
[2021-08-22] MEDS: INSULIN REGULAR, HUMAN 300 UNIT/3 ML VIAL SQ PRN ×4 (05:22→23:14)
[2021-08-22 05:42] LABS: CREATININE 0.7 mg/dL (0.6-1.3); MAGNESIUM 2.4 mg/dL (1.8-2.4); PHOSPHOROUS 3.5 mg/dL (2.5-4.9); POTASSIUM 4.1 mmol/L (3.5-5.1)
[2021-08-22] MEDS ORDERED: MORPHINE SULFATE 2 MG/1 ML DISP.SYRIN IV PRN (07:15)
[2021-08-22 08:14] LABS: ABG BASE EXCESS 6.6 mmol/L; ABG HCO3 32.7 mmol/L; ABG PCO2 52.8 mmHg (35.0-45.0); ABG PO2 67.6 mmHg (75.0-100.0); ABG SITE RIGHT RADIAL; ABG TOTAL HEMOGLOBIN 13.5 G/dL (12.0-16.0); COHb 1.3 % (0.5-1.5); MetHb 0.3 % (0.0-1.5); O2Hb 91.5 % (94.0-97.0)
[2021-08-22] MEDS: FUROSEMIDE 40 MG/4 ML VIAL IVP SCH ×2 (09:08→18:22)
[2021-08-22] MEDS: FAMOTIDINE 20 MG TABLET GT SCH ×2 (09:08→20:46)
[2021-08-22] MEDS: ENOXAPARIN SODIUM 40 MG/0.4 ML DISP.SYRIN SQ SCH (09:08)
[2021-08-22] MEDS: LOSARTAN POTASSIUM 50 MG TABLET PO SCH (09:09)
[2021-08-22] MEDS: REMEDY ESSENTIAL ZINC PASTE 113 GM TOP SCH ×2 (09:09→20:54)
[2021-08-22] MEDS: PROTEIN SUPPLEMENT (PROSTAT) 30 ML LIQUID GT SCH ×3 (09:10→18:23)
--- NOTE | 2021-08-22 09:53 | NUR ---
informed Garo hong NP regarding patient being positive for DVT on right upper arm. Will Discontinue PICC per order.
--- NOTE | 2021-08-22 10:00 | NUR ---
patient titrated down to room air per mainor
[2021-08-22] MEDS: ALBUTEROL SULFATE 2.5 MG/3 ML NEBU NEB SCH ×3 (10:50→19:42)
[2021-08-22] MEDS: IPRATROPIUM BROMIDE 0.5 MG/2.5 ML NEBU NEB SCH ×3 (10:50→19:42)
[2021-08-22] MEDS ORDERED: ENOXAPARIN SODIUM 100 MG/ML DISP.SYRIN SQ ONE (11:45)
--- NOTE | 2021-08-22 14:00 | NUR ---
patient did not want to eat. Asked primary if wanted to resume feeding for now. patient had passed swallow eval in am to puree diet. PT eval was also done
--- NOTE | 2021-08-22 20:00 | NUR ---
ROUNDS MADE PATIENT IN BED AWAKE ,ALERT X1 ON ROOM AIR SATURATION 99 %, HOB UP .V/S WNL BP 145/74 HR 100 RR 20. AFEBRILE 98.6 F AXILLARY . F/C TO BSD WITH YELLOWISH URINE . NGT IN PLACED TF D/C PATIENT PASSED SWALLOW EVALUATION NOW ON PUREE DIET .
--- NOTE | 2021-08-22 20:30 | NUR ---
HOB UP ,SPOON FED PATIENT (TOTAL FEEDER) PATIENT ATE ,ABOUT 25% OF THE DINNER TRAY . TOLERATED ABLE TO SWALLOW .ASPIRATION PRECAUTION OBSERVED .
[2021-08-22] MEDS: INSULIN GLARGINE,HUM 300 UNITS/3 ML CARTRIDGE SQ SCH (20:51)
--- NOTE | 2021-08-22 21:00 | NUR ---
ON ROOM AIR PATIENT SATURATION ONLY 89 TO 90% PATIENT SLEEPING MOUTH BREATHING . PLACED ON O2 NASAL CANNULA @ 3 L/MIN NOW SATURATION 93 TO 95%.
[2021-08-22] MEDS: ENOXAPARIN SODIUM 150 MG/ML SYRINGE SQ SCH (23:08)
[2021-08-23] VITALS (24 sets, daily range): BP systolic 113–154; BP diastolic 45–87
--- NOTE | 2021-08-23 04:30 | NUR ---
AM CARE DONE ,CHANGED SOILED LINENS AND GOWN . WATSON CARE DONE -PERINEAL CARE DONE ,TURNED AND REPOSITION PATIENT OFFLOADED BACK ELEVATED WITH PILLOW AND HEELS OFF BED WITH PILLOWS . ORAL CARE DONE .
[2021-08-23 05:23] LABS: HEMATOCRIT 39.4 % (31.2-41.9); MEAN CORPUSCULAR VOLUME 88.9 fL (75.5-95.3); PLATELET COUNT (AUTO) 314 K/uL (179-408)
[2021-08-23] MEDS: INSULIN REGULAR, HUMAN 300 UNIT/3 ML VIAL SQ PRN ×4 (05:30→20:33)
[2021-08-23] MEDS: BLOOD SUGAR DIAGNOSTIC 1 EACH STRIP VI SCH ×4 (05:31→20:34)
[2021-08-23 05:35] LABS: CREATININE 0.8 mg/dL (0.6-1.3); MAGNESIUM 2.5 mg/dL (1.8-2.4); PHOSPHOROUS 3.8 mg/dL (2.5-4.9); POTASSIUM 3.9 mmol/L (3.5-5.1)
[2021-08-23 05:47] LABS: ABG BASE EXCESS 6.7 mmol/L; ABG HCO3 32.9 mmol/L; ABG PCO2 53.5 mmHg (35.0-45.0); ABG PH 7.407 (7.350-7.450); ABG PO2 62.5 mmHg (75.0-100.0); ABG SITE LEFT RADIAL; ABG TOTAL HEMOGLOBIN 13.5 G/dL (12.0-16.0); COHb 1.1 % (0.5-1.5); MetHb 0.1 % (0.0-1.5); O2Hb 90.2 % (94.0-97.0); VENT MODE Nasal Cannula
--- NOTE | 2021-08-23 05:50 | NUR ---
Per ABG results pt now on 6LNC. RN JT aware and notified. No resp. distress noted
--- NOTE | 2021-08-23 06:00 | NUR ---
FLUSHED NGT WITH 100 CC OF FREE WATER . TOLERATED .
--- NOTE | 2021-08-23 06:00 | NUR ---
FLUSHED NGT WITH 100 CC OF FREE WATER .
[2021-08-23] MEDS: ALBUTEROL SULFATE 2.5 MG/3 ML NEBU NEB SCH ×4 (07:18→18:22)
[2021-08-23] MEDS: IPRATROPIUM BROMIDE 0.5 MG/2.5 ML NEBU NEB SCH ×4 (07:18→18:22)
[2021-08-23] MEDS: PROTEIN SUPPLEMENT (PROSTAT) 30 ML LIQUID GT SCH ×3 (08:44→16:19)
[2021-08-23] MEDS: FAMOTIDINE 20 MG TABLET GT SCH ×2 (08:44→20:27)
[2021-08-23] MEDS: LOSARTAN POTASSIUM 50 MG TABLET PO SCH (08:45)
[2021-08-23] MEDS: FUROSEMIDE 40 MG TABLET PO SCH (08:46)
[2021-08-23] MEDS: REMEDY ESSENTIAL ZINC PASTE 113 GM TOP SCH ×2 (08:47→20:31)
[2021-08-23] MEDS ORDERED: FUROSEMIDE 40 MG/4 ML VIAL IVP SCH (09:00)
[2021-08-23] MEDS ORDERED: FUROSEMIDE 20 MG/2 ML VIAL IVP SCH (09:00)
[2021-08-23] MEDS: ENOXAPARIN SODIUM 150 MG/ML SYRINGE SQ SCH ×2 (09:26→20:32)
[2021-08-23] MEDS: ACETYLCYSTEINE 20% 800 MG/4 ML VIAL NEB SCH ×2 (15:39→22:44)
[2021-08-23] MEDS ORDERED: DEXTROSE 50% 50 ML DISP.SYRIN IV PRN (20:13)
[2021-08-23] MEDS: INSULIN GLARGINE,HUM 300 UNITS/3 ML CARTRIDGE SQ SCH (20:30)
[2021-08-23] MEDS: IPRATROPIUM BROMIDE 0.5 MG/2.5 ML NEBU NEB PRN (22:44)
[2021-08-23] MEDS: ALBUTEROL SULFATE 2.5 MG/3 ML NEBU NEB PRN (22:44)
[2021-08-24] VITALS (23 sets, daily range): BP systolic 107–152; BP diastolic 50–75
[2021-08-24 05:37] LABS: HEMATOCRIT 39.9 % (31.2-41.9); MEAN CORPUSCULAR HEMOGLOBIN 28.2 uug (24.7-32.8); MEAN CORPUSCULAR VOLUME 89.9 fL (75.5-95.3); PLATELET COUNT (AUTO) 311 K/uL (179-408)
[2021-08-24 05:47] LABS: CREATININE 0.8 mg/dL (0.6-1.3); MAGNESIUM 2.6 mg/dL (1.8-2.4); PHOSPHOROUS 2.7 mg/dL (2.5-4.9); POTASSIUM 4.2 mmol/L (3.5-5.1)
[2021-08-24] MEDS: IPRATROPIUM BROMIDE 0.5 MG/2.5 ML NEBU NEB SCH ×4 (07:40→22:15)
[2021-08-24] MEDS: ACETYLCYSTEINE 20% 800 MG/4 ML VIAL NEB SCH ×3 (07:40→22:15)
[2021-08-24] MEDS: ALBUTEROL SULFATE 2.5 MG/3 ML NEBU NEB SCH ×4 (07:40→22:14)
[2021-08-24] MEDS: BLOOD SUGAR DIAGNOSTIC 1 EACH STRIP VI SCH ×4 (07:51→20:41)
--- NOTE | 2021-08-24 08:00 | NUR ---
hospitalist at pt bedside, orders to resume tube feeding.
[2021-08-24 08:04] LABS: ABG BASE EXCESS 7.2 mmol/L; ABG HCO3 33.1 mmol/L; ABG PCO2 51.9 mmHg (35.0-45.0); ABG PH 7.422 (7.350-7.450); ABG SITE RIGHT RADIAL; ABG TOTAL HEMOGLOBIN 13.6 G/dL (12.0-16.0); COHb 0.8 % (0.5-1.5); MetHb 0.3 % (0.0-1.5); O2Hb 86.1 % (94.0-97.0); VENT MODE Nasal Cannula
[2021-08-24] MEDS ORDERED: VITAL AF 1.2 1,000 ML LIQUID GT PRN (08:15)
[2021-08-24] MEDS: FAMOTIDINE 20 MG TABLET GT SCH ×2 (08:26→20:21)
[2021-08-24] MEDS: FUROSEMIDE 40 MG TABLET PO SCH (08:26)
[2021-08-24] MEDS: LOSARTAN POTASSIUM 50 MG TABLET PO SCH (08:28)
[2021-08-24] MEDS: PROTEIN SUPPLEMENT (PROSTAT) 30 ML LIQUID GT SCH ×3 (08:36→16:30)
[2021-08-24] MEDS: INSULIN REGULAR, HUMAN 300 UNIT/3 ML VIAL SQ PRN ×4 (08:43→20:40)
[2021-08-24] MEDS: ENOXAPARIN SODIUM 150 MG/ML SYRINGE SQ SCH ×2 (08:44→20:22)
[2021-08-24] MEDS: REMEDY ESSENTIAL ZINC PASTE 113 GM TOP SCH ×2 (08:45→20:23)
[2021-08-24] MEDS: NUTRISOURCE FIBER 4 GM PACKET GT SCH (16:31)
--- NOTE | 2021-08-24 19:15 | NUR ---
Received report, awake and responsive to tactile and verbal stimuli. NGT to Rt nare, secured, TF at 30 ml/hr, placement verified, no gastric residual noted. Repositioned to side, skin care and back rub rendered. Weeks catheter intact draining yellow output.
--- NOTE | 2021-08-24 20:30 | NUR ---
Dr Yates at bedside and updated on pt condition.
[2021-08-24] MEDS: INSULIN GLARGINE,HUM 300 UNITS/3 ML CARTRIDGE SQ SCH (20:36)
[2021-08-25] VITALS (22 sets, daily range): BP systolic 90–150; BP diastolic 50–73
--- NOTE | 2021-08-25 03:16 | NUR ---
Vaginal bleeding noted with moderate amount with clots noted, kept clean and dry.
[2021-08-25 05:33] LABS: HEMATOCRIT 44.2 % (31.2-41.9); MEAN CORPUSCULAR HEMOGLOBIN 27.8 uug (24.7-32.8); MEAN CORPUSCULAR VOLUME 91.4 fL (75.5-95.3); PLATELET COUNT (AUTO) 312 K/uL (179-408)
[2021-08-25] MEDS: BLOOD SUGAR DIAGNOSTIC 1 EACH STRIP VI SCH ×4 (05:50→21:31)
[2021-08-25] MEDS: INSULIN REGULAR, HUMAN 300 UNIT/3 ML VIAL SQ PRN ×4 (05:52→21:34)
[2021-08-25 06:00] LABS: CREATININE 0.8 mg/dL (0.6-1.3); MAGNESIUM 2.6 mg/dL (1.8-2.4); PHOSPHOROUS 2.5 mg/dL (2.5-4.9); POTASSIUM 3.6 mmol/L (3.5-5.1)
[2021-08-25 06:06] LABS: ABG BASE EXCESS 9.4 mmol/L; ABG HCO3 36.7 mmol/L; ABG PCO2 62.5 mmHg (35.0-45.0); ABG PH 7.387 (7.350-7.450); ABG PO2 72.3 mmHg (75.0-100.0); ABG SITE RIGHT RADIAL; ABG TOTAL HEMOGLOBIN 13.7 G/dL (12.0-16.0); COHb 0.9 % (0.5-1.5); MetHb 0.3 % (0.0-1.5); O2Hb 93.1 % (94.0-97.0); VENT MODE Nasal Cannula
--- NOTE | 2021-08-25 06:44 | NUR ---
PT IS ON 1L NC, DROWSY BUT AROUSABLE TO VERBAL AND TACTILE STIMILU. FEEDING HELD ORDERED X 22 HRS. NGT PLACEMENT VERIFIED NO RESIDUAL. VAGINAL BLEEDING MODERATE IN AMT WITH CLOTS NOTED.IV LEFT WRIST G 20 PATENT AND INTACT.
[2021-08-25] MEDS: IPRATROPIUM BROMIDE 0.5 MG/2.5 ML NEBU NEB SCH ×4 (07:16→21:15)
[2021-08-25] MEDS: ALBUTEROL SULFATE 2.5 MG/3 ML NEBU NEB SCH ×4 (07:16→21:15)
[2021-08-25] MEDS: ACETYLCYSTEINE 20% 800 MG/4 ML VIAL NEB SCH ×3 (07:16→21:16)
[2021-08-25] MEDS: PROTEIN SUPPLEMENT (PROSTAT) 30 ML LIQUID GT SCH ×3 (08:39→18:14)
[2021-08-25] MEDS: FUROSEMIDE 40 MG TABLET PO SCH (08:39)
[2021-08-25] MEDS: LOSARTAN POTASSIUM 50 MG TABLET PO SCH (08:39)
[2021-08-25] MEDS: FAMOTIDINE 20 MG TABLET GT SCH ×2 (08:39→21:34)
[2021-08-25] MEDS: REMEDY ESSENTIAL ZINC PASTE 113 GM TOP SCH ×2 (08:43→21:39)
[2021-08-25] MEDS: ENOXAPARIN SODIUM 150 MG/ML SYRINGE SQ SCH ×2 (08:43→21:37)
[2021-08-25] MEDS: NUTRISOURCE FIBER 4 GM PACKET GT SCH ×3 (12:40→18:13)
--- NOTE | 2021-08-25 18:00 | NUR ---
patient requires frequent oral care and deep suctioning. Bipap at night per sneha hong WILDLIFE SCIENCE PROFESSOR, plan for US pelvic in am routine for vaginal bleed.
[2021-08-25] MEDS: INSULIN GLARGINE,HUM 300 UNITS/3 ML CARTRIDGE SQ SCH (21:36)
[2021-08-26] VITALS (23 sets, daily range): BP systolic 113–152; BP diastolic 62–80
--- NOTE | 2021-08-26 02:19 | NUR ---
PATIENT WAS ON O2 @ 1L/M NC, THEN APPROX. 23:45, PT PLACED ON BI /PAP WITH FULL MASK, ORDERED, FOR THE NOC, PT DOES HAVE HIGH PCO2 , BI/PAP SETTINGS, 15/5, RR16, FIO2 @ 24%, PT DOING WELL, RESTING WELL FOR THE NOC, KEEP SAT 88-92%. Stacy GALEASP Addendum: 08/26/21 at 0222 by AIXA AL RT Amended: Links added.
[2021-08-26] MEDS: LACTULOSE 20 G/30 ML LIQUID UDC PO PRN (03:03)
[2021-08-26] MEDS: MAGNESIUM HYDROXIDE 30 ML LIQUID UDC PO PRN (03:03)
--- NOTE | 2021-08-26 04:00 | NUR ---
Con't. bloody vaginal bleeding. U.S. pelvic non-OB still pending.
[2021-08-26 05:22] LABS: HEMATOCRIT 44.6 % (31.2-41.9); MEAN CORPUSCULAR VOLUME 91.5 fL (75.5-95.3); PLATELET COUNT (AUTO) 282 K/uL (179-408)
[2021-08-26 05:36] LABS: CREATININE 0.8 mg/dL (0.6-1.3); MAGNESIUM 2.6 mg/dL (1.8-2.4); PHOSPHOROUS 2.2 mg/dL (2.5-4.9); POTASSIUM 3.7 mmol/L (3.5-5.1)
[2021-08-26] MEDS: ALBUTEROL SULFATE 2.5 MG/3 ML NEBU NEB SCH ×4 (07:28→22:42)
[2021-08-26] MEDS: ACETYLCYSTEINE 20% 800 MG/4 ML VIAL NEB SCH ×3 (07:28→22:43)
[2021-08-26] MEDS: IPRATROPIUM BROMIDE 0.5 MG/2.5 ML NEBU NEB SCH ×4 (07:28→22:41)
[2021-08-26] MEDS: BLOOD SUGAR DIAGNOSTIC 1 EACH STRIP VI SCH ×5 (07:34→20:58)
[2021-08-26 08:07] LABS: ABG HCO3 38.7 mmol/L; ABG PCO2 58.9 mmHg (35.0-45.0); ABG PH 7.435 (7.350-7.450); ABG PO2 78.7 mmHg (75.0-100.0); ABG SITE RIGHT RADIAL; ABG TOTAL HEMOGLOBIN 13.8 G/dL (12.0-16.0); COHb 1.4 % (0.5-1.5); O2Hb 94.5 % (94.0-97.0); VENT MODE Nasal Cannula
[2021-08-26] MEDS: FAMOTIDINE 20 MG TABLET GT SCH ×2 (08:20→20:57)
[2021-08-26] MEDS: FUROSEMIDE 40 MG TABLET PO SCH (08:21)
[2021-08-26] MEDS: LOSARTAN POTASSIUM 50 MG TABLET PO SCH (08:21)
[2021-08-26] MEDS: NUTRISOURCE FIBER 4 GM PACKET GT SCH ×3 (08:22→16:16)
[2021-08-26] MEDS: APIXABAN 5 MG TABLET PO SCH ×2 (08:22→20:57)
[2021-08-26] MEDS: PROTEIN SUPPLEMENT (PROSTAT) 30 ML LIQUID GT SCH ×3 (08:22→16:17)
[2021-08-26] MEDS: INSULIN REGULAR, HUMAN 300 UNIT/3 ML VIAL SQ PRN ×4 (08:24→20:54)
[2021-08-26] MEDS: REMEDY ESSENTIAL ZINC PASTE 113 GM TOP SCH ×2 (08:26→20:57)
[2021-08-26] MEDS: VITAL AF 1.2 1,000 ML LIQUID GT PRN (11:39)
[2021-08-26] MEDS ORDERED: NEUTRA PHOS PACKET PO ONE (16:00)
[2021-08-26] MEDS ORDERED: MIRALAX 17 GM POWD.PACK PO PRN (19:15)
[2021-08-26] MEDS: INSULIN GLARGINE,HUM 300 UNITS/3 ML CARTRIDGE SQ SCH (20:52)
[2021-08-27] VITALS (23 sets, daily range): BP systolic 91–144; BP diastolic 52–100
--- NOTE | 2021-08-27 01:49 | NUR ---
PATIENT PLACED ON BI/PAP APPROX. 23:45 WITH LARGE FULL MASK, TOLL WELL, WITH SETTINGS, 15/5 , R16, FIO2 24%, PT DOES RETAIN PCO2, RR16/20, TAKE OFF BI/PAP AROUND 0500, FOR ABG ON 1L/M NC . ADJUST MASK AT TIMES FOR LEAKS. Stacy GALEASP Addendum: 08/27/21 at 0152 by AIXA AL RT Amended: Links added.
[2021-08-27 05:08] LABS: HEMATOCRIT 45.6 % (31.2-41.9); MEAN CORPUSCULAR VOLUME 91.4 fL (75.5-95.3); PLATELET COUNT (AUTO) 307 K/uL (179-408)
[2021-08-27 05:14] LABS: CARBON DIOXIDE 38 mmol/L (21-32); CHLORIDE 116 mmol/L (98-107); CREATININE 0.8 mg/dL (0.6-1.3); GLUCOSE 270 mg/dL (74-106); MAGNESIUM 2.8 mg/dL (1.8-2.4); PHOSPHOROUS 2.7 mg/dL (2.5-4.9); UREA NITROGEN, BLOOD 69 mg/dL (7-18)
[2021-08-27] MEDS: BLOOD SUGAR DIAGNOSTIC 1 EACH STRIP VI SCH ×4 (06:04→20:21)
[2021-08-27] MEDS: INSULIN REGULAR, HUMAN 300 UNIT/3 ML VIAL SQ PRN ×4 (06:06→20:18)
[2021-08-27 06:12] LABS: ABG BASE EXCESS 13.4 mmol/L; ABG HCO3 39.9 mmol/L; ABG PCO2 57.8 mmHg (35.0-45.0); ABG PH 7.457 (7.350-7.450); ABG PO2 60.4 mmHg (75.0-100.0); ABG SITE RIGHT RADIAL; ABG TOTAL HEMOGLOBIN 14.3 G/dL (12.0-16.0); COHb 1.1 % (0.5-1.5); MetHb 0.2 % (0.0-1.5); O2Hb 90.5 % (94.0-97.0); VENT MODE Nasal Cannula
--- NOTE | 2021-08-27 07:00 | NUR ---
Received pt. AAOX1 on/off opening eyes to light touch and verbal command. On NC 1L. with saturation 92-94% no tachypnea. Hemodynamically stable, on sinus rhythm sbp within normal. IV line patent. aparicio to gravity. Safety measures implemented at all times. Will continue with care plan.
[2021-08-27] MEDS: ACETYLCYSTEINE 20% 800 MG/4 ML VIAL NEB SCH ×3 (07:35→19:59)
[2021-08-27] MEDS: IV D5W 1000ML 1,000 ML IV PRN (07:43)
[2021-08-27] MEDS: IPRATROPIUM BROMIDE 0.5 MG/2.5 ML NEBU NEB SCH ×4 (07:49→19:59)
[2021-08-27] MEDS: ALBUTEROL SULFATE 2.5 MG/3 ML NEBU NEB SCH ×4 (07:49→19:59)
[2021-08-27] MEDS: LOSARTAN POTASSIUM 50 MG TABLET PO SCH (08:18)
[2021-08-27] MEDS: FUROSEMIDE 40 MG TABLET PO SCH (08:18)
[2021-08-27] MEDS: PROTEIN SUPPLEMENT (PROSTAT) 30 ML LIQUID GT SCH ×3 (08:18→16:17)
[2021-08-27] MEDS: FAMOTIDINE 20 MG TABLET GT SCH ×2 (08:18→20:08)
[2021-08-27] MEDS: NUTRISOURCE FIBER 4 GM PACKET GT SCH ×3 (08:18→16:17)
[2021-08-27] MEDS: REMEDY ESSENTIAL ZINC PASTE 113 GM TOP SCH ×2 (08:25→20:08)
[2021-08-27] MEDS: APIXABAN 5 MG TABLET PO SCH ×2 (08:35→20:09)
--- NOTE | 2021-08-27 08:45 | NUR ---
Patient seen by attending Parish Saenz. report given and orders to continue with care plan received.
[2021-08-27] MEDS: VITAL AF 1.2 1,000 ML LIQUID GT PRN (10:14)
--- NOTE | 2021-08-27 19:00 | NUR ---
RECEIVED PATIENT AWAKE , ABLE TO FOLLOW SIMPLE COMMAND , OXYGEN NC 1L , TF VIA NGT , PLACEMENT CHECKED AND VERIFIED , NO RESIDUAL , VITAL AF RUNNING AT 30 ML , WATSON AND R UA IV INTACT ,NO FEVER , SR 96
--- NOTE | 2021-08-27 20:00 | NUR ---
pm care given , bathed , change of linens done , suctioned patient orally and oral care given
--- NOTE | 2021-08-27 20:00 | NUR ---
NO VAGINAL BLEEDING NOTED AT THIS TIME , D5W RUNNING AT 50 ML
[2021-08-27] MEDS: INSULIN GLARGINE,HUM 300 UNITS/3 ML CARTRIDGE SQ SCH (20:16)
--- NOTE | 2021-08-27 21:50 | NUR ---
patient placed on Bipap 15/5 16 24% fio2
--- NOTE | 2021-08-27 23:32 | NUR ---
with spontaneous eye opening but seems to be more lethargic , tolerating bipap , saturating 95% m tf has no residual
[2021-08-28] VITALS (25 sets, daily range): BP systolic 93–127; BP diastolic 38–80
[2021-08-28] MEDS: IV D5W 1000ML 1,000 ML IV PRN ×2 (01:16→20:58)
--- NOTE | 2021-08-28 02:48 | NUR ---
small vaginal bleeding noted , no clots noted
[2021-08-28 05:09] LABS: HEMATOCRIT 41.8 % (31.2-41.9); MEAN CORPUSCULAR HEMOGLOBIN 28.2 uug (24.7-32.8); MEAN CORPUSCULAR VOLUME 92.3 fL (75.5-95.3); PLATELET COUNT (AUTO) 266 K/uL (179-408)
[2021-08-28 05:27] LABS: CREATININE 1.1 mg/dL (0.6-1.3); MAGNESIUM 2.7 mg/dL (1.8-2.4); PHOSPHOROUS 3.3 mg/dL (2.5-4.9); POTASSIUM 3.9 mmol/L (3.5-5.1)
[2021-08-28] MEDS: BLOOD SUGAR DIAGNOSTIC 1 EACH STRIP VI SCH ×4 (05:40→23:17)
[2021-08-28] MEDS: INSULIN REGULAR, HUMAN 300 UNIT/3 ML VIAL SQ PRN ×4 (05:41→23:26)
--- NOTE | 2021-08-28 06:10 | NUR ---
patient was taken off the bipap , placed on 1l nc oxygen saturation 92% , HR 89 , SBP 114/ 70 RR 21 , TF IS TURNED OFF PER ORDERED X 22 HOURS , NO RESIDUAL PLACEMENT VERIFIED WATSON INTACT AND DRAINING , AWAKE WITH SPONTANEOUS EYE OPENING , BUT NO VERBAL RESPONSE AT THIS TIME , SMALL VAGINAL BLEEDING IS NOTED , IV JOSE INTACT DW 50 ML RUNNING , NO FEVER , MD NOTIFIED OF CURRENT LABS , NO ORDER RECEIVED
[2021-08-28] MEDS: IPRATROPIUM BROMIDE 0.5 MG/2.5 ML NEBU NEB SCH ×4 (07:33→19:55)
[2021-08-28] MEDS: ACETYLCYSTEINE 20% 800 MG/4 ML VIAL NEB SCH ×3 (07:33→19:55)
[2021-08-28] MEDS: ALBUTEROL SULFATE 2.5 MG/3 ML NEBU NEB SCH ×4 (07:33→19:55)
[2021-08-28 07:46] LABS: ABG BASE EXCESS 11.7 mmol/L; ABG HCO3 37.7 mmol/L; ABG PCO2 54.2 mmHg (35.0-45.0); ABG PO2 68.3 mmHg (75.0-100.0); ABG TOTAL HEMOGLOBIN 13.6 G/dL (12.0-16.0); COHb 1.4 % (0.5-1.5); MetHb 0.3 % (0.0-1.5); O2Hb 92.3 % (94.0-97.0)
[2021-08-28] MEDS: NUTRISOURCE FIBER 4 GM PACKET GT SCH ×3 (08:03→17:10)
[2021-08-28] MEDS: PROTEIN SUPPLEMENT (PROSTAT) 30 ML LIQUID GT SCH ×3 (08:03→17:11)
[2021-08-28] MEDS: APIXABAN 5 MG TABLET PO SCH ×2 (08:04→20:38)
[2021-08-28] MEDS: FUROSEMIDE 40 MG TABLET PO SCH (08:05)
[2021-08-28] MEDS: LOSARTAN POTASSIUM 50 MG TABLET PO SCH (08:05)
[2021-08-28] MEDS: REMEDY ESSENTIAL ZINC PASTE 113 GM TOP SCH ×2 (08:05→20:39)
[2021-08-28] MEDS: FAMOTIDINE 20 MG TABLET GT SCH ×2 (08:05→20:37)
--- NOTE | 2021-08-28 09:36 | NUR ---
PT.WAS SEEN BY RADHA JASSO MD WITH NEW ORDERS.
[2021-08-28] MEDS: VITAL AF 1.2 1,000 ML LIQUID GT PRN (09:51)
--- NOTE | 2021-08-28 10:33 | NUR ---
PT.WAS SEEN BY ANN AYALA MD WITH NEW ORDERS
--- NOTE | 2021-08-28 18:58 | NUR ---
Pt.was seen by and JR WONG DO with new orders.
--- NOTE | 2021-08-28 19:00 | NUR ---
Received report. Patient is awake, NAD, VSS. On NC @2LPM, NG TF Vital AF @ 30mls/hr, no gastric residual noted. Weeks catheter draining well to gravity. RFA 20G with onging D5W @50mls/hr. Vaginal bleeding noted. Will continue to monitor closely.
[2021-08-28] MEDS: INSULIN GLARGINE,HUM 300 UNITS/3 ML CARTRIDGE SQ SCH (20:55)
--- NOTE | 2021-08-28 21:00 | NUR ---
Placed on Bipap c/o RT
[2021-08-28] MEDS ORDERED: PAMIDRONATE DISODIUM 90 MG in IV NORMAL SALINE 500 ML IV ONE (22:30)
[2021-08-29] VITALS (24 sets, daily range): BP systolic 93–135; BP diastolic 43–72
[2021-08-29 05:25] LABS: MEAN CORPUSCULAR HEMOGLOBIN 28.1 uug (24.7-32.8); MEAN CORPUSCULAR VOLUME 91.8 fL (75.5-95.3); PLATELET COUNT (AUTO) 229 K/uL (179-408)
[2021-08-29] MEDS: BLOOD SUGAR DIAGNOSTIC 1 EACH STRIP VI SCH ×4 (05:36→23:58)
[2021-08-29] MEDS: INSULIN REGULAR, HUMAN 300 UNIT/3 ML VIAL SQ PRN ×4 (05:40→23:57)
[2021-08-29 05:45] LABS: POTASSIUM 3.8 mmol/L (3.5-5.1)
--- NOTE | 2021-08-29 05:58 | NUR ---
Bipap off and placed on NC @ 1LPM, O2 sat 96%. Addendum: 08/29/21 at 0600 by Rachel Stiles RN Bipap off and placed on NC @ 1LPM c/o RT Reyes, O2 sat 96%.
[2021-08-29] MEDS: ALBUTEROL SULFATE 2.5 MG/3 ML NEBU NEB SCH ×4 (07:32→21:25)
[2021-08-29] MEDS: ACETYLCYSTEINE 20% 800 MG/4 ML VIAL NEB SCH ×2 (07:32→15:34)
[2021-08-29] MEDS: IPRATROPIUM BROMIDE 0.5 MG/2.5 ML NEBU NEB SCH ×4 (07:32→21:24)
--- NOTE | 2021-08-29 08:00 | NUR ---
Received patient awake and oriented x 1, able to track and respond to painful stimuli. Pt. on a 2L NC sating at 93%. Addendum: 08/29/21 at 1433 by TANNER RUIZ RN Received patient awake and oriented x 1, able to track and respond to painful stimuli. Pt. on a 2L NC sating at 93%. Suctioned thick white secretions. Cardiac marcus NSR. Pt is on GT feeding, Vital AF at goal of 30, tolerating well. Weeks is patent draining yellow clear urine. Skin is intact with some redness in the sacral area, mepilex in place. RLE redness. No new pressure injury noted. Safety initated. Side rails up. Bed in low and lock position. Will continue monitor.
--- NOTE | 2021-08-29 08:13 | NUR ---
Seen by Cardiology. No new orders. Will continue to monitor.
[2021-08-29] MEDS: NUTRISOURCE FIBER 4 GM PACKET GT SCH ×3 (08:14→17:14)
[2021-08-29] MEDS: FAMOTIDINE 20 MG TABLET GT SCH ×2 (08:14→20:39)
[2021-08-29] MEDS: PROTEIN SUPPLEMENT (PROSTAT) 30 ML LIQUID GT SCH ×3 (08:14→17:14)
[2021-08-29] MEDS: APIXABAN 5 MG TABLET PO SCH ×2 (08:15→20:41)
[2021-08-29] MEDS: REMEDY ESSENTIAL ZINC PASTE 113 GM TOP SCH ×2 (08:15→20:43)
--- NOTE | 2021-08-29 08:47 | NUR ---
Seen by Hospitalist. Discussed constipation. No new orders. Will continue to monitor.
[2021-08-29] MEDS ORDERED: LOSARTAN POTASSIUM 50 MG TABLET PO SCH (09:00)
--- NOTE | 2021-08-29 10:30 | NUR ---
Seen by pulmonology. No new orders. Will continue to monitor.
--- NOTE | 2021-08-29 15:57 | NUR ---
Oral care provided.
[2021-08-29] MEDS: IV D5W 1000ML 1,000 ML IV PRN (18:35)
--- NOTE | 2021-08-29 19:45 | NUR ---
patient in bed sleeping easily arousable open eyes to name then goes back to sleep . 0n oxygen at 1 liter nasal cannula tolerating RR 18 TO 20 saturation 96% left arm midline with d5 @50 ml/hr maintenance iv. NGT with vital AF at 30 ml/hr tolerating with free water flushes 200 ml q6 hourly . f/c to bsd with yellowish i and os done .
--- NOTE | 2021-08-29 20:00 | NUR ---
INCONTINENT OF URINE NOTED ,PATIENT WITH F/C ,CHECKED BALLOON ONLY AT 5 ML ,PUSH F/C FURTHER TO CHECKED IF F/C IS PATENT AND NO KINKS WATER ADDED TO THE BALLOON MAKE IT 10 ML .PARTIAL LINEN CHANGE DONE ,PERINEAL CARE DONE .
--- NOTE | 2021-08-29 20:45 | NUR ---
patient friend letty came and brought patients mails and phone lyric writer .
[2021-08-29] MEDS: INSULIN GLARGINE,HUM 300 UNITS/3 ML CARTRIDGE SQ SCH (20:50)
--- NOTE | 2021-08-29 23:30 | NUR ---
PM CARE DONE ,BATH PATIENT ,CHANGED SOILED LINENS AND GOWN . Z GUARD AND HYDROGEL APPLIED TO BILATERAL GROIN ,PERINEAL AREA AND SACRAL AREA COVER WITH MEPILEX .TURNED AND REPOSITION PATIENT ,OFFLOADED BACK WITH PILLOWS AND BILATERAL HEELS ELEVATED WITH PILLOWS .
[2021-08-30] VITALS (25 sets, daily range): BP systolic 91–130; BP diastolic 49–72
--- NOTE | 2021-08-30 | NUR ---
RESPIRATORY THERAPIST PLACED PATIENT ON BIPAP .
[2021-08-30] MEDS: IPRATROPIUM BROMIDE 0.5 MG/2.5 ML NEBU NEB SCH ×6 (00:08→23:59)
[2021-08-30] MEDS: ACETYLCYSTEINE 20% 800 MG/4 ML VIAL NEB SCH ×4 (00:08→23:59)
[2021-08-30] MEDS: ALBUTEROL SULFATE 2.5 MG/3 ML NEBU NEB SCH ×6 (00:08→23:59)
--- NOTE | 2021-08-30 02:12 | NUR ---
PATIENT PLACE ON BI/PAP AFTER NURSING CLEANING PT, APPROX. 00:10 WITH SETTINGS, 1, R16, FIO2 @ 24%, PT NOT VERY RESPONSIVE , LEAVE ON BI/PAP STILL ABOUT 6AN, THEN PLACE BACK ON O2 1L/M NC, WITH ABG LATER .Stacy AL RCP Addendum: 08/30/21 at 0218 by AIXA AL RT Amended: Links added.
[2021-08-30 05:15] LABS: MEAN CORPUSCULAR HEMOGLOBIN 28.5 uug (24.7-32.8); MEAN CORPUSCULAR VOLUME 91.8 fL (75.5-95.3); PLATELET COUNT (AUTO) 137 K/uL (179-408)
[2021-08-30] MEDS: BLOOD SUGAR DIAGNOSTIC 1 EACH STRIP VI SCH ×4 (05:23→23:36)
[2021-08-30] MEDS: INSULIN REGULAR, HUMAN 300 UNIT/3 ML VIAL SQ PRN ×4 (05:25→23:37)
--- NOTE | 2021-08-30 08:00 | NUR ---
Stew reported to Dr Alvarenga
[2021-08-30] MEDS ORDERED: LACTULOSE 20 G/30 ML LIQUID UDC NG PRN (08:15)
[2021-08-30] MEDS ORDERED: MIRALAX 17 GM POWD.PACK NG PRN (08:16)
[2021-08-30] MEDS ORDERED: MAGNESIUM HYDROXIDE 30 ML LIQUID UDC NG PRN ×2 (08:16→11:00)
[2021-08-30] MEDS: FAMOTIDINE 20 MG TABLET GT SCH ×2 (08:21→20:09)
[2021-08-30] MEDS: LOSARTAN POTASSIUM 50 MG TABLET NG SCH (08:22)
[2021-08-30] MEDS: VITAL AF 1.2 1,000 ML LIQUID GT PRN (08:23)
[2021-08-30] MEDS: PROTEIN SUPPLEMENT (PROSTAT) 30 ML LIQUID GT SCH ×3 (08:23→17:27)
[2021-08-30] MEDS: NUTRISOURCE FIBER 4 GM PACKET GT SCH ×3 (08:24→17:08)
[2021-08-30] MEDS: APIXABAN 5 MG TABLET NG SCH ×2 (08:27→20:10)
[2021-08-30 08:44] LABS: ABG BASE EXCESS 7.9 mmol/L; ABG HCO3 34.3 mmol/L; ABG PCO2 56.2 mmHg (35.0-45.0); ABG PH 7.404 (7.350-7.450); ABG PO2 77.1 mmHg (75.0-100.0); ABG SITE RIGHT RADIAL; ABG TOTAL HEMOGLOBIN 13.2 G/dL (12.0-16.0); COHb 2.1 % (0.5-1.5); MetHb 0.3 % (0.0-1.5); O2Hb 92.6 % (94.0-97.0); VENT MODE Nasal Cannula
[2021-08-30] MEDS: REMEDY ESSENTIAL ZINC PASTE 113 GM TOP SCH ×2 (09:19→20:14)
[2021-08-30 11:06] LABS: A/G RATIO 0.8 (0.7-1.7); ALBUMIN 2.6 g/dL (2.9-4.4); ALPHA-1-GLOBULIN 0.3 g/dL (0.0-0.4); ALPHA-2-GLOBULIN 0.9 g/dL (0.4-1.0); GAMMA GLOBULIN 0.9 g/dL (0.4-1.8); GLOBULIN, TOTAL 3.1 g/dL (2.2-3.9); M-SPIKE Not Observed g/dL (Not Observed)
--- NOTE | 2021-08-30 12:00 | NUR ---
examined by senior linux systems engineer, second ride fare collector, and hospitalist at bedside
[2021-08-30] MEDS: IV D5W 1000ML 1,000 ML IV PRN (13:59)
--- NOTE | 2021-08-30 18:41 | NUR ---
patient is awake at times, kept patient on room air, saturated 90% - 93% at room air, however desaturated to end of the shift, restarted nasal canula 0.5 liter via nasal canula, saturating at 92% currently the goal is 88-92% per job coach/job developer Dr Alvarenga. patient noted with deep oral secretions, suctioned, effective. no vaginal bleeding or hematuria noted during shift. oral care provided, pericare provided.
--- NOTE | 2021-08-30 19:30 | NUR ---
rounds made patient in bed ,open eyes to name but goes back to sleep ,at times noted able to moved right and left upper arm slow and weak . sr on the heart monitor. 02 at 0.5liters via nasal cannula saturation 92 to 93% as per day shift RN when on ROOM AIR patient desaturate <92 %.
--- NOTE | 2021-08-30 19:45 | NUR ---
as endorsed by day shift RN patient had MODERATE AMT OF SOFT STOOL .
[2021-08-30] MEDS: INSULIN GLARGINE,HUM 300 UNITS/3 ML CARTRIDGE SQ SCH (20:13)
--- NOTE | 2021-08-30 21:14 | NUR ---
PATIENT ON O2 @ 0.5L/M NC, TURNED OFF, TRY ROOM AIR, BUT SAT DROPS 88-90%, AFTER NEB RX, PT PLACED BACK ON O2 @ 0.5L/M NC, SAT 92%, TO MAINTAIN ORDERED , BI/PAP WILL BE ON PT AT NOC TIME .Stacy AL PUBLIC POLICY ASSOCIATE Addendum: 08/30/21 at 2116 by AIXA AL RT Amended: Links added.
--- NOTE | 2021-08-30 23:30 | NUR ---
respiratory therapist placed patient on BIPAP . 25/11 RATE OF 16 FIO2 22 %,SATURATION 93 RR 20.
[2021-08-31] VITALS (24 sets, daily range): BP systolic 100–136; BP diastolic 42–84
--- NOTE | 2021-08-31 | NUR ---
FINGERSTICK DONE AND FOLLOW ISS . FREE WATER FLUSHED 150 ML DONE VIA THE NGT .TOLERATING TF .
--- NOTE | 2021-08-31 01:16 | NUR ---
PATIENT ON 0.5 L/M N/C , 1/2 L/M , DUE TO HIGH PCO2 RETAINER, NEB RX GIVEN, THEN APPROX, 23:30, PT PLACED BACK ON BI/PAP TO REST , 25/11 , R16, 22% = 1/2 L/M BLEED IN TROUGH BI/PAP MACHINE, ADJUST MASK AT TIMES, SAT KEEP AROUND 92%. THEN TAKE OFF IN AM . Stacy GALEASP Addendum: 08/31/21 at 0118 by AIXA AL RT Amended: Links added.
--- NOTE | 2021-08-31 03:30 | NUR ---
bath patient changed soiled linens and gown . perianal care done , applied hydrogel and z guard to bilateral lower back , gown and abdominal folds .
[2021-08-31] MEDS: INSULIN REGULAR, HUMAN 300 UNIT/3 ML VIAL SQ PRN ×4 (05:21→23:33)
[2021-08-31 05:38] LABS: CREATININE 0.9 mg/dL (0.6-1.3); POTASSIUM 3.9 mmol/L (3.5-5.1)
[2021-08-31 05:57] LABS: HEMATOCRIT 36.9 % (31.2-41.9); MEAN CORPUSCULAR HEMOGLOBIN 28.5 uug (24.7-32.8); MEAN CORPUSCULAR VOLUME 90.4 fL (75.5-95.3); PLATELET COUNT (AUTO) 173 K/uL (179-408)
[2021-08-31] MEDS: BLOOD SUGAR DIAGNOSTIC 1 EACH STRIP VI SCH ×4 (06:12→23:33)
--- NOTE | 2021-08-31 07:45 | NUR ---
PT.WAS SEEN BY .
[2021-08-31] MEDS: PROTEIN SUPPLEMENT (PROSTAT) 30 ML LIQUID GT SCH ×3 (07:47→17:18)
[2021-08-31 07:48] LABS: ABG BASE EXCESS 9.1 mmol/L; ABG HCO3 33.7 mmol/L; ABG PH 7.492 (7.350-7.450); ABG PO2 88.8 mmHg (75.0-100.0); ABG SITE RIGHT RADIAL
--- NOTE | 2021-08-31 08:31 | NUR ---
PT.WAS SEEN BY RADHA JASSO MD .
[2021-08-31] MEDS: FAMOTIDINE 20 MG TABLET GT SCH ×2 (08:38→20:09)
[2021-08-31] MEDS: LOSARTAN POTASSIUM 50 MG TABLET NG SCH (08:38)
[2021-08-31] MEDS: NUTRISOURCE FIBER 4 GM PACKET GT SCH ×3 (08:38→17:18)
[2021-08-31] MEDS: APIXABAN 5 MG TABLET NG SCH ×2 (08:43→20:09)
[2021-08-31] MEDS: REMEDY ESSENTIAL ZINC PASTE 113 GM TOP SCH ×2 (08:43→20:11)
--- NOTE | 2021-08-31 09:35 | NUR ---
PT.WAS SEEN BY .
[2021-08-31] MEDS: IPRATROPIUM BROMIDE 0.5 MG/2.5 ML NEBU NEB SCH ×4 (09:44→20:17)
[2021-08-31] MEDS: ALBUTEROL SULFATE 2.5 MG/3 ML NEBU NEB SCH ×4 (09:44→20:17)
[2021-08-31] MEDS: ACETYLCYSTEINE 20% 800 MG/4 ML VIAL NEB SCH ×3 (09:44→20:17)
[2021-08-31] MEDS: IV D5W 1000ML 1,000 ML IV PRN (10:07)
[2021-08-31] MEDS: VITAL AF 1.2 1,000 ML LIQUID GT PRN (10:07)
--- NOTE | 2021-08-31 12:51 | NUR ---
WOUND CARE CONSULT: PT SEEN FOR EVALUATION OF SACRAL AND RT BUTTOCK AREAS OF EXCORIATION. NO OPEN WOUNDS NOTED. WATSON CATH NOTED. PT IS INCONTINENT OF STOOL AND IS HAVING SOME VAGINAL BLEEDING AT THIS TIME. PMD AWARE PER RN. PT IS ON BARIMAX ETS AIR BED. DISCUSSED SKIN PROTECTION WITH NURSING STAFF. MD IN AGREEMENT WITH PLAN OF CARE.
--- NOTE | 2021-08-31 18:45 | NUR ---
No changes in pt.condition,no s/s of distress or pain.
--- NOTE | 2021-08-31 19:45 | NUR ---
patient in bed asleep but easily arousable when name is called . patient verbally responsive but confused .open yes spontaneously , able to moved right and left upper bilateral extremities but weak and slow . tolerating oxygen via nasal cannula at .05 L/min ,SATURATION 89 TO 91 NGT WITH TF VITAL AT 30 ML/HR WATSON with yellowish urine .
--- NOTE | 2021-08-31 20:00 | NUR ---
per day shift RN patient seen by wound care c/o sacral redness ,wound care evaluation SACRAL AREAS only excoriation . and to continue to to follow wound care treatment .
[2021-08-31] MEDS: INSULIN GLARGINE,HUM 300 UNITS/3 ML CARTRIDGE SQ SCH (20:39)
--- NOTE | 2021-08-31 21:37 | NUR ---
fingerstick done and blood sugar 262 LANTUS insulin given see emar .
--- NOTE | 2021-08-31 23:15 | NUR ---
respiratory therapist at [facility] placed patient on BIPAP . ,ORAL CARE DONE AND APPLIED [place] JELLY LIP AREA SO DRY .
[2021-09-01] VITALS (24 sets, daily range): BP systolic 110–162; BP diastolic 47–72
--- NOTE | 2021-09-01 | NUR ---
FINGERSTICK Q6 DONE AND FOLLOW ISS. FREE WATER FLUSHES GIVEN 150 ML VIA THE NGT .
--- NOTE | 2021-09-01 02:00 | NUR ---
AM CARE DONE , CHANGED SOILED LINES AND GOWN .ORAL CARE DONE ,WATSON CARE DONE. TURNED AND REPOSITION PATIENT .HOB UP AND ASPIRATION PRECAUTION OBSERVED .
[2021-09-01] MEDS: BLOOD SUGAR DIAGNOSTIC 1 EACH STRIP VI SCH ×4 (05:12→23:22)
[2021-09-01] MEDS: INSULIN REGULAR, HUMAN 300 UNIT/3 ML VIAL SQ PRN ×4 (05:19→23:25)
[2021-09-01] MEDS: IV D5W 1000ML 1,000 ML IV PRN (05:39)
--- NOTE | 2021-09-01 06:00 | NUR ---
FINGERSTICK DONE AND FOLLOW ISS .
[2021-09-01 06:21] LABS: CREATININE 0.7 mg/dL (0.6-1.3); POTASSIUM 3.9 mmol/L (3.5-5.1)
[2021-09-01 06:35] LABS: MEAN CORPUSCULAR HEMOGLOBIN 28.6 uug (24.7-32.8); MEAN CORPUSCULAR VOLUME 88.8 fL (75.5-95.3); PLATELET COUNT (AUTO) 152 K/uL (179-408)
--- NOTE | 2021-09-01 08:00 | NUR ---
Feeding resumed at 30cc/hr and to end on 09/02/21 at 0600. Will endorse information to PM nurse
--- NOTE | 2021-09-01 08:09 | NUR ---
Received patient report from nurse, Janny TERRAZAS.
[2021-09-01] MEDS: ALBUTEROL SULFATE 2.5 MG/3 ML NEBU NEB SCH ×4 (08:12→20:14)
[2021-09-01] MEDS: ACETYLCYSTEINE 20% 800 MG/4 ML VIAL NEB SCH ×3 (08:12→20:14)
[2021-09-01] MEDS: IPRATROPIUM BROMIDE 0.5 MG/2.5 ML NEBU NEB SCH ×4 (08:12→20:14)
[2021-09-01] MEDS: LOSARTAN POTASSIUM 50 MG TABLET NG SCH (09:22)
[2021-09-01] MEDS: APIXABAN 5 MG TABLET NG SCH ×2 (09:23→20:36)
[2021-09-01] MEDS: NUTRISOURCE FIBER 4 GM PACKET GT SCH ×3 (09:24→17:03)
[2021-09-01] MEDS: FAMOTIDINE 20 MG TABLET GT SCH ×2 (09:24→20:37)
[2021-09-01] MEDS: PROTEIN SUPPLEMENT (PROSTAT) 30 ML LIQUID GT SCH ×3 (09:25→17:03)
[2021-09-01] MEDS: REMEDY ESSENTIAL ZINC PASTE 113 GM TOP SCH ×2 (09:27→20:37)
--- NOTE | 2021-09-01 10:30 | NUR ---
Provided patient with AM care. Comfort measures provided. New gown and bed linens provided.
--- NOTE | 2021-09-01 12:00 | NUR ---
Accucheck taken and read at 205. Coverage provided.
[2021-09-01 16:25] LABS: ABG SITE RIGHT RADIAL; VENT MODE Nasal Cannula 1L
--- NOTE | 2021-09-01 17:17 | NUR ---
150cc flush given through NG tube
--- NOTE | 2021-09-01 17:31 | NUR ---
Patient's blood sugar 247. ISS utilized.
--- NOTE | 2021-09-01 18:53 | NUR ---
No changes in signs or symptoms of patient. Patient resting in bed comfortably with no signs of distress or discomfort. Will endorse information to PM nurse
[2021-09-01] MEDS: INSULIN GLARGINE,HUM 300 UNITS/3 ML CARTRIDGE SQ SCH (20:37)
[2021-09-02] VITALS (24 sets, daily range): BP systolic 103–145; BP diastolic 45–87
[2021-09-02] MEDS: IV D5W 1000ML 1,000 ML IV PRN ×2 (03:42→23:56)
[2021-09-02] MEDS: BLOOD SUGAR DIAGNOSTIC 1 EACH STRIP VI SCH ×4 (05:07→23:41)
[2021-09-02] MEDS: INSULIN REGULAR, HUMAN 300 UNIT/3 ML VIAL SQ PRN ×4 (05:11→23:42)
[2021-09-02 05:39] LABS: CARBON DIOXIDE 32 mmol/L (21-32); CHLORIDE 103 mmol/L (98-107); CREATININE 0.6 mg/dL (0.6-1.3); GLUCOSE 229 mg/dL (74-106); MAGNESIUM 2.4 mg/dL (1.8-2.4); PHOSPHOROUS 1.8 mg/dL (2.5-4.9); POTASSIUM 3.7 mmol/L (3.5-5.1); UREA NITROGEN, BLOOD 46 mg/dL (7-18)
[2021-09-02 06:27] LABS: HEMATOCRIT 34.6 % (31.2-41.9); MEAN CORPUSCULAR HEMOGLOBIN 28.3 uug (24.7-32.8); MEAN CORPUSCULAR VOLUME 88.3 fL (75.5-95.3); PLATELET COUNT (AUTO) 161 K/uL (179-408)
--- NOTE | 2021-09-02 07:00 | NUR ---
Received pt. AAOx3. Hemodynamically stable on NSR with sbp within desired limits. On NC.5L saturaion 89-93%. no tachypnea or SOB noted or reported. NG-T in place. feeding to be resumed. Weeks to gravity with clear dilia output. IV line patent, will continue with care plan.
[2021-09-02] MEDS: ALBUTEROL SULFATE 2.5 MG/3 ML NEBU NEB SCH ×4 (07:43→20:00)
[2021-09-02] MEDS: ACETYLCYSTEINE 20% 800 MG/4 ML VIAL NEB SCH ×3 (07:43→20:00)
[2021-09-02] MEDS: IPRATROPIUM BROMIDE 0.5 MG/2.5 ML NEBU NEB SCH ×4 (07:43→20:00)
[2021-09-02] MEDS: PROTEIN SUPPLEMENT (PROSTAT) 30 ML LIQUID GT SCH ×3 (08:13→17:52)
[2021-09-02] MEDS: NUTRISOURCE FIBER 4 GM PACKET GT SCH ×3 (08:14→17:52)
[2021-09-02] MEDS: FAMOTIDINE 20 MG TABLET GT SCH ×2 (08:16→20:28)
[2021-09-02] MEDS: APIXABAN 5 MG TABLET NG SCH ×2 (08:17→20:28)
[2021-09-02] MEDS: LOSARTAN POTASSIUM 50 MG TABLET NG SCH (08:17)
[2021-09-02] MEDS: REMEDY ESSENTIAL ZINC PASTE 113 GM TOP SCH ×2 (08:18→20:29)
[2021-09-02] MEDS: VITAL AF 1.2 1,000 ML LIQUID GT PRN (08:18)
--- NOTE | 2021-09-02 08:45 | NUR ---
Attending Dr. Engle in the unit to see and examine pt. report given, with orders to continue with care plan received and implemented.
--- NOTE | 2021-09-02 09:50 | NUR ---
Pulmonary services, Dr. Alvarenga in the unit to follow up on pt. report given, see order hx.
[2021-09-02] MEDS ORDERED: SODIUM PHOSPHATE MM 15 MMOL in IV NORMAL SALINE 250 ML IV ONE (17:00)
--- NOTE | 2021-09-02 18:50 | NUR ---
Left pt. AAOx3. Hemodynamically stable on NSR with sbp within desired limits. On NC at .5L saturaion 89-93%. no tachypnea or SOB noted or reported. NG-T in place. feeding with feeding running at goal therapy with no residuals during shift pt. tolerating well. Weeks to gravity with clear dilia output. IV line patent, will continue with care plan.
[2021-09-02] MEDS: IPRATROPIUM BROMIDE 0.5 MG/2.5 ML NEBU NEB PRN (20:01)
[2021-09-02] MEDS: INSULIN GLARGINE,HUM 300 UNITS/3 ML CARTRIDGE SQ SCH (20:25)
[2021-09-03] VITALS (22 sets, daily range): BP systolic 84–155; BP diastolic 42–84
[2021-09-03] MEDS: INSULIN REGULAR, HUMAN 300 UNIT/3 ML VIAL SQ PRN ×4 (04:47→23:24)
[2021-09-03] MEDS: BLOOD SUGAR DIAGNOSTIC 1 EACH STRIP VI SCH ×4 (04:48→23:23)
[2021-09-03 04:59] LABS: HEMATOCRIT 36.6 % (31.2-41.9); MEAN CORPUSCULAR HEMOGLOBIN 28.3 uug (24.7-32.8); MEAN CORPUSCULAR VOLUME 88.5 fL (75.5-95.3); PLATELET COUNT (AUTO) 191 K/uL (179-408)
[2021-09-03 05:16] LABS: CREATININE 0.6 mg/dL (0.6-1.3); MAGNESIUM 2.2 mg/dL (1.8-2.4); PHOSPHOROUS 1.8 mg/dL (2.5-4.9); POTASSIUM 3.6 mmol/L (3.5-5.1)
[2021-09-03] MEDS: ACETYLCYSTEINE 20% 800 MG/4 ML VIAL NEB SCH ×3 (07:35→20:38)
[2021-09-03] MEDS: ALBUTEROL SULFATE 2.5 MG/3 ML NEBU NEB SCH ×4 (07:58→20:38)
[2021-09-03] MEDS: IPRATROPIUM BROMIDE 0.5 MG/2.5 ML NEBU NEB SCH ×4 (07:59→20:38)
[2021-09-03] MEDS: REMEDY ESSENTIAL ZINC PASTE 113 GM TOP SCH ×2 (08:12→20:44)
[2021-09-03] MEDS: FAMOTIDINE 20 MG TABLET GT SCH ×2 (08:12→20:44)
[2021-09-03] MEDS: PROTEIN SUPPLEMENT (PROSTAT) 30 ML LIQUID GT SCH ×3 (08:12→16:40)
[2021-09-03] MEDS: NUTRISOURCE FIBER 4 GM PACKET GT SCH ×3 (08:12→16:40)
[2021-09-03] MEDS: LOSARTAN POTASSIUM 50 MG TABLET NG SCH (08:13)
[2021-09-03] MEDS: APIXABAN 5 MG TABLET NG SCH ×2 (08:16→20:46)
--- NOTE | 2021-09-03 08:30 | NUR ---
Attending Dr. Engle in the unit to see and examine pt. report given. See order hx.
--- NOTE | 2021-09-03 09:00 | NUR ---
Pulmonary services Dr. Alvarenga in the unit to follow up on pt. report given see order hx.
[2021-09-03] MEDS: VITAL AF 1.2 1,000 ML LIQUID GT PRN (09:03)
--- NOTE | 2021-09-03 12:00 | NUR ---
Repositioned on high fowlers, flushed 150ml water via ngt as ordered, tolerated well. ngt in place per xray result. will continue to monitor.
[2021-09-03] MEDS ORDERED: SODIUM PHOSPHATE MM 15 MMOL in IV NORMAL SALINE 250 ML IV ONE (17:00)
[2021-09-03] MEDS: IV D5W 1000ML 1,000 ML IV PRN (20:36)
[2021-09-03] MEDS: INSULIN GLARGINE,HUM 300 UNITS/3 ML CARTRIDGE SQ SCH (20:45)
--- NOTE | 2021-09-03 23:09 | NUR ---
Placed on Bipap machine c/o RT Ramiro
[2021-09-04] VITALS (24 sets, daily range): BP systolic 98–150; BP diastolic 44–86
[2021-09-04] MEDS: ACETAMINOPHEN 325 MG TABLET PO PRN (00:30)
--- NOTE | 2021-09-04 01:30 | NUR ---
AM care done. Linen changed. BM x 1, soft brown in consistency.
[2021-09-04] MEDS: BLOOD SUGAR DIAGNOSTIC 1 EACH STRIP VI SCH ×3 (05:05→18:00)
--- NOTE | 2021-09-04 05:15 | NUR ---
Removed Bipap machine and placed on NC @0.5LPM c/o RT Ramiro, tolerating well.
[2021-09-04] MEDS: INSULIN REGULAR, HUMAN 300 UNIT/3 ML VIAL SQ PRN ×3 (05:26→18:01)
[2021-09-04 05:48] LABS: HEMATOCRIT 33.2 % (31.2-41.9); MEAN CORPUSCULAR HEMOGLOBIN 28.8 uug (24.7-32.8); MEAN CORPUSCULAR VOLUME 87.4 fL (75.5-95.3); PLATELET COUNT (AUTO) 195 K/uL (179-408)
[2021-09-04 05:58] LABS: CREATININE 0.6 mg/dL (0.6-1.3); PHOSPHOROUS 2.2 mg/dL (2.5-4.9); POTASSIUM 3.6 mmol/L (3.5-5.1)
--- NOTE | 2021-09-04 06:00 | NUR ---
TF Vital AF off [id number].
--- NOTE | 2021-09-04 06:30 | NUR ---
Patient more awake, confused and disoriented. VSS. NAD.
[2021-09-04] MEDS: ALBUTEROL SULFATE 2.5 MG/3 ML NEBU NEB SCH ×4 (07:07→19:45)
[2021-09-04] MEDS: ACETYLCYSTEINE 20% 800 MG/4 ML VIAL NEB SCH ×3 (07:07→19:45)
[2021-09-04] MEDS: IPRATROPIUM BROMIDE 0.5 MG/2.5 ML NEBU NEB SCH ×4 (07:07→19:45)
[2021-09-04 07:30] LABS: ABG HCO3 26.8 mmol/L; ABG PCO2 34.3 mmHg (35.0-45.0); ABG PH 7.511 (7.350-7.450); ABG PO2 86.7 mmHg (75.0-100.0); ABG SITE LEFT RADIAL; ABG TOTAL HEMOGLOBIN 11.9 G/dL (12.0-16.0); COHb 0.7 % (0.5-1.5); O2Hb 96.4 % (94.0-97.0); VENT MODE Nasal Cannula
[2021-09-04] MEDS: FAMOTIDINE 20 MG TABLET GT SCH ×2 (08:27→20:44)
[2021-09-04] MEDS: NUTRISOURCE FIBER 4 GM PACKET GT SCH ×3 (08:27→16:15)
[2021-09-04] MEDS: LOSARTAN POTASSIUM 50 MG TABLET NG SCH (08:27)
[2021-09-04] MEDS: APIXABAN 5 MG TABLET NG SCH ×2 (08:29→20:45)
[2021-09-04] MEDS: PROTEIN SUPPLEMENT (PROSTAT) 30 ML LIQUID GT SCH ×3 (08:30→16:15)
[2021-09-04] MEDS: REMEDY ESSENTIAL ZINC PASTE 113 GM TOP SCH ×2 (08:31→20:51)
[2021-09-04] MEDS ORDERED: SODIUM PHOSPHATE MM 15 MMOL in IV NORMAL SALINE 250 ML IV ONE (17:00)
--- NOTE | 2021-09-04 19:15 | NUR ---
ROUNDS MADE PATIENT IN BED AWAKE X1 BUT CONFUSED . TOLERATING 02 AT 0.5 L/MIN VIA N/C ,SATURATION 94% RR 16.
[2021-09-04] MEDS: INSULIN GLARGINE,HUM 300 UNITS/3 ML CARTRIDGE SQ SCH (20:50)
--- NOTE | 2021-09-04 21:30 | NUR ---
FINGERSTICK DONE AND FOLLOW ISS SEE EMAR.
--- NOTE | 2021-09-04 22:00 | NUR ---
DUE MEDICATION CRUSHED GIVEN VIA THE NGT ,PATIENT ON TF VIA THE NGT VITAL AF @30 ML/HR TO FLUSHED NGT WITH FREE WATER 150 ML/Q6 HOURLY.
--- NOTE | 2021-09-04 22:30 | NUR ---
RESPIRATORY THERAPIST AT [facility],ORAL CARE DONE AND PLACED PATIENT ON BIPAP 15/5,16, FIO2 40% RR 16 SATURATION 89 % HOB UP .
[2021-09-05] VITALS (25 sets, daily range): BP systolic 106–193; BP diastolic 55–136
[2021-09-05] MEDS: BLOOD SUGAR DIAGNOSTIC 1 EACH STRIP VI SCH ×4 (00:03→17:30)
[2021-09-05] MEDS: INSULIN REGULAR, HUMAN 300 UNIT/3 ML VIAL SQ PRN ×4 (00:04→17:31)
[2021-09-05] MEDS: IV NORMAL SALINE 250 ML IV PRN (00:06)
--- NOTE | 2021-09-05 01:00 | NUR ---
INCONTINENT OF STOOL LARGE AMT OF BROWNISH SOFT STOOL . CHANGED SOILED LINENS AND GOWN. WATSON CARE DONE .PERINEAL CARE DONE . Z GUARD APPLIED TO SACRAL AND BILATERAL GROIN .
[2021-09-05] MEDS: hydrALAZINE HCL 20 MG/1 ML VIAL IV PRN (02:35)
--- NOTE | 2021-09-05 03:00 | NUR ---
hydralazine prn given for bp >170 mm/hg .
--- NOTE | 2021-09-05 04:30 | NUR ---
AM LABS COLLECTED AND FLUSHED MIDLINES .
--- NOTE | 2021-09-05 05:30 | NUR ---
incontinent of stool large amt .changed soiled linens and gown . small vaginal bleeding noted ,placed abdominal pad . perineal care done and Weeks care done .oral care done .
--- NOTE | 2021-09-05 05:45 | NUR ---
OFF BIPAP NOW ON 02 N/C AT 0.5 L/MIN RESPIRATORY THERAPIST AT [facility].
[2021-09-05 06:10] LABS: CARBON DIOXIDE 29 mmol/L (21-32); CHLORIDE 99 mmol/L (98-107); CREATININE 0.5 mg/dL (0.6-1.3); GLUCOSE 176 mg/dL (74-106); HEMATOCRIT 35.2 % (31.2-41.9); MAGNESIUM 2.1 mg/dL (1.8-2.4); MEAN CORPUSCULAR HEMOGLOBIN 28.9 uug (24.7-32.8); MEAN CORPUSCULAR VOLUME 87.2 fL (75.5-95.3); PHOSPHOROUS 1.8 mg/dL (2.5-4.9); PLATELET COUNT (AUTO) 211 K/uL (179-408); POTASSIUM 3.4 mmol/L (3.5-5.1); UREA NITROGEN, BLOOD 23 mg/dL (7-18)
--- NOTE | 2021-09-05 06:10 | NUR ---
FINGERSTICK DONE AND ISS GIVEN .
--- NOTE | 2021-09-05 07:45 | NUR ---
Received patient resting in bed. Easily arousable. Hemodynamically stable with sinus rhythm on the monitor. Nasal cannula at 0.5L saturating in the high 90's. NG tube flushing, patent, and intact. MAIRA midline flushing, patent, and intact. Weeks draining by gravity. No acute distress at the moment. Safety precautions in place. Will continue with plan of care.
[2021-09-05] MEDS: PROTEIN SUPPLEMENT (PROSTAT) 30 ML LIQUID GT SCH ×3 (07:59→17:30)
[2021-09-05] MEDS: REMEDY ESSENTIAL ZINC PASTE 113 GM TOP SCH ×2 (08:00→20:54)
[2021-09-05] MEDS ORDERED: POTASSIUM PHOSPHATE MM 15 MMOL in IV NORMAL SALINE 250 ML IV ONE (08:00)
[2021-09-05] MEDS: LOSARTAN POTASSIUM 50 MG TABLET NG SCH (08:00)
[2021-09-05] MEDS: FAMOTIDINE 20 MG TABLET GT SCH ×2 (08:01→20:54)
[2021-09-05] MEDS: APIXABAN 5 MG TABLET NG SCH ×2 (08:02→20:51)
[2021-09-05] MEDS: NUTRISOURCE FIBER 4 GM PACKET GT SCH ×3 (08:03→17:29)
[2021-09-05] MEDS: VITAL AF 1.2 1,000 ML LIQUID GT PRN (08:07)
[2021-09-05] MEDS: ALBUTEROL SULFATE 2.5 MG/3 ML NEBU NEB SCH ×4 (08:10→19:46)
[2021-09-05] MEDS: IPRATROPIUM BROMIDE 0.5 MG/2.5 ML NEBU NEB SCH ×4 (08:10→19:46)
[2021-09-05] MEDS: ACETYLCYSTEINE 20% 800 MG/4 ML VIAL NEB SCH ×3 (08:10→19:46)
[2021-09-05 09:15] LABS: ABG HCO3 28.6 mmol/L; ABG PCO2 38.6 mmHg (35.0-45.0); ABG PH 7.488 (7.350-7.450); ABG PO2 79.4 mmHg (75.0-100.0); ABG SITE RIGHT RADIAL; ABG TOTAL HEMOGLOBIN 12.5 G/dL (12.0-16.0); COHb 0.3 % (0.5-1.5); MetHb 0.4 % (0.0-1.5); VENT MODE Nasal Cannula
--- NOTE | 2021-09-05 18:43 | NUR ---
Patient remains oriented to name. Hemodynamically stable throughout shift. Sinus rhythm on the monitor. On 0.5L nasal cannula saturating at 96%. NG Tube flushing patent and intact. Tolerating tube feedings: Vital AF at 30ml with minimal residual. Weeks draining by gravity. Ate 75% of breakfast and 75% of lunch. Safety precautions in place. Will continue with plan of care.
--- NOTE | 2021-09-05 20:00 | NUR ---
ROUNDS MADE PATIENT IN AWAKE ALERT X1. 02 NASAL CANNULA AT 0.5 LITERS/MIN ,tolerating 02 saturation 97 rr 17. NGT with TF of VITAL 30 ml/hr .hob up and aspiration precaution observed . f/c to bsd with yellowish urine .
[2021-09-05] MEDS: INSULIN GLARGINE,HUM 300 UNITS/3 ML CARTRIDGE SQ SCH (20:53)
--- NOTE | 2021-09-05 23:00 | NUR ---
RESPIRATORY THERAPIST AT [facility] PLACED PATIENT ON BIPAP .
--- NOTE | 2021-09-05 23:30 | NUR ---
INCONTINENT OF STOOL ,LARGE BROWNISH IN COLOR .PM care done changed soiled linens and gown . perineal care done . APPLIED Z GUARD AND HYDROGEL TO SACRAL AND BILATERAL GROIN ,PERINEAL AREA .TURNED AND REPOSITION PATIENT , HOB UP ,OFF LOADED BACK WITH PILLOW AND ELEVATED BUE AND BLE .
[2021-09-06] VITALS (16 sets, daily range): BP systolic 105–155; BP diastolic 37–88
--- NOTE | 2021-09-06 | NUR ---
fingerstick done and follow insulin sliding scale . 150 ml of free water flushes done via the NGT .
[2021-09-06] MEDS: INSULIN REGULAR, HUMAN 300 UNIT/3 ML VIAL SQ PRN ×5 (00:03→23:27)
[2021-09-06] MEDS: BLOOD SUGAR DIAGNOSTIC 1 EACH STRIP VI SCH ×5 (00:05→23:25)
[2021-09-06] MEDS: IV NORMAL SALINE 250 ML IV PRN (00:47)
[2021-09-06] MEDS: APIXABAN 5 MG TABLET NG SCH ×2 (08:01→20:22)
[2021-09-06] MEDS: LOSARTAN POTASSIUM 50 MG TABLET NG SCH (08:01)
[2021-09-06] MEDS: FAMOTIDINE 20 MG TABLET GT SCH ×2 (08:02→20:21)
[2021-09-06] MEDS: NUTRISOURCE FIBER 4 GM PACKET GT SCH ×3 (08:03→17:26)
[2021-09-06] MEDS: PROTEIN SUPPLEMENT (PROSTAT) 30 ML LIQUID GT SCH ×3 (08:03→17:25)
[2021-09-06] MEDS: REMEDY ESSENTIAL ZINC PASTE 113 GM TOP SCH ×2 (08:04→20:21)
[2021-09-06] MEDS: IPRATROPIUM BROMIDE 0.5 MG/2.5 ML NEBU NEB SCH ×4 (10:25→19:45)
[2021-09-06] MEDS: ALBUTEROL SULFATE 2.5 MG/3 ML NEBU NEB SCH ×4 (10:25→19:45)
--- NOTE | 2021-09-06 11:15 | NUR ---
Patient transferred to [facility] in stable condition. Hemodynamically stable with heart rate in the 90s. Blood pressure within normal limits. Oxygen saturation 94%. No acute distress at the moment. Patients belongings brought with patient.
--- NOTE | 2021-09-06 11:20 | NUR ---
PATIENT WAS TRANSFERRED FROM ICU TO [facility] RM 302 AWAKE ALERT AND ORIENTED X3 ON A SPECIALTY MATTRESS IN COMFORTABLE POSITION AT 0.5L O2 NC SATURATING 96%. SR ON MONITOR. PER DR AYALA ADVISE TO CONTINUE STATUS [facility]
--- NOTE | 2021-09-06 16:50 | NUR ---
SEEN BY DR AYALA WITH ORDER FOR ABG IN AM. SEE NOTES.
--- NOTE | 2021-09-06 20:00 | NUR ---
Received patient lying in bed. Asleep but easily arouse to verbal stimuli. Denies any pain or SOB at this time. On O2 at 0.5LPM via NC in place. Left upper arm midline intact and patent. NSR on tele with HR of 90/min. Weeks catheter intact and draining via gravity. Needs assessed and attended to. Safety measure initiated and call light within reached.
[2021-09-06] MEDS: INSULIN GLARGINE,HUM 300 UNITS/3 ML CARTRIDGE SQ SCH (20:22)
[2021-09-06] MEDS: ACETAMINOPHEN 325 MG TABLET PO PRN (20:24)
[2021-09-07 00:50] VITALS: BP 143/75
[2021-09-07 04:00] VITALS: BP 151/58
--- NOTE | 2021-09-07 05:55 | NUR ---
Denies any pain or SOB. BIPAP used during the night. On O2 at 0.5LPM via NC in place. Left upper arm midline intact and patent. NSR on tele with HR of 80/min. Weeks catheter intact and draining via gravity. Needs attended to and met. Turned and repositioned for comfort. Safety measure maintained and call light within reached.
[2021-09-07] MEDS: BLOOD SUGAR DIAGNOSTIC 1 EACH STRIP VI SCH ×4 (06:55→21:02)
[2021-09-07 07:28] LABS: HEMATOCRIT 33.4 % (31.2-41.9); MEAN CORPUSCULAR HEMOGLOBIN 28.5 uug (24.7-32.8); MEAN CORPUSCULAR VOLUME 87.6 fL (75.5-95.3); PLATELET COUNT (AUTO) 241 K/uL (179-408)
[2021-09-07 07:36] LABS: CREATININE 0.6 mg/dL (0.6-1.3); MAGNESIUM 2.2 mg/dL (1.8-2.4); PHOSPHOROUS 2.4 mg/dL (2.5-4.9); POTASSIUM 4.4 mmol/L (3.5-5.1)
[2021-09-07] MEDS: ALBUTEROL SULFATE 2.5 MG/3 ML NEBU NEB SCH ×4 (07:38→21:03)
[2021-09-07] MEDS: IPRATROPIUM BROMIDE 0.5 MG/2.5 ML NEBU NEB SCH ×4 (07:38→21:03)
[2021-09-07 08:00] VITALS: BP 134/62
[2021-09-07 08:45] LABS: ABG BASE EXCESS 3.8 mmol/L; ABG HCO3 29.7 mmol/L; ABG PCO2 50.6 mmHg (35.0-45.0); ABG PH 7.386 (7.350-7.450); ABG PO2 125.5 mmHg (75.0-100.0); ABG SITE LEFT RADIAL; ABG TOTAL HEMOGLOBIN 11.7 G/dL (12.0-16.0); COHb 0.6 % (0.5-1.5); MetHb 0.2 % (0.0-1.5); O2Hb 97.8 % (94.0-97.0); VENT MODE Nasal Cannula
[2021-09-07] MEDS: FAMOTIDINE 20 MG TABLET GT SCH ×2 (10:38→20:48)
[2021-09-07] MEDS: LOSARTAN POTASSIUM 50 MG TABLET NG SCH (10:38)
[2021-09-07] MEDS: APIXABAN 5 MG TABLET NG SCH ×2 (10:39→20:49)
[2021-09-07] MEDS: REMEDY ESSENTIAL ZINC PASTE 113 GM TOP SCH ×2 (10:40→21:30)
[2021-09-07] MEDS: NUTRISOURCE FIBER 4 GM PACKET GT SCH ×3 (10:41→17:55)
[2021-09-07] MEDS: PROTEIN SUPPLEMENT (PROSTAT) 30 ML LIQUID GT SCH ×3 (10:41→17:56)
[2021-09-07 12:30] VITALS: BP 134/60
[2021-09-07] MEDS: INSULIN REGULAR, HUMAN 300 UNIT/3 ML VIAL SQ PRN ×2 (14:08→20:51)
[2021-09-07] MEDS ORDERED: NEUTRA PHOS PACKET PO ONE (16:00)
[2021-09-07 16:46] VITALS: BP 147/80
--- NOTE | 2021-09-07 19:30 | NUR ---
Patient awake, verbally responsive, no sob no chest pain, tele monitor sinus rhythm, on 1/2 liter oxygen sat wnl, cont to monitor.
[2021-09-07 20:47] VITALS: BP 145/76
[2021-09-07] MEDS: INSULIN GLARGINE,HUM 300 UNITS/3 ML CARTRIDGE SQ SCH (20:50)
[2021-09-08 00:18] VITALS: BP 144/74
--- NOTE | 2021-09-08 00:32 | NUR ---
Patient on bipap tolerate well, but patient removes her bipap, cont to encourage not to remove it, sat wnl. cont to monitor.
--- NOTE | 2021-09-08 02:51 | NUR ---
PATIENT PLACED BACK ON BI/PAP MACHINE WITH FULL LARGE MASK, @ 23:15 APPROX, WITH SETTINGS, 15/5. RATE 16, 22% , STABLE, ADJUST MASK AT TIMES,PT DOES GET UNCOMFORTABLE WEARING BI/PAP AT TIMES; SAT 97%, PT WAS ON ROOM AIR, IN AM, OR 1/2 L.M NC PRNElva GALEASP Addendum: 09/08/21 at 0255 by AIXA AL RT Amended: Links added.
[2021-09-08 04:56] VITALS: BP 140/50
[2021-09-08] MEDS: BLOOD SUGAR DIAGNOSTIC 1 EACH STRIP VI SCH ×4 (05:40→20:10)
--- NOTE | 2021-09-08 05:43 | NUR ---
Patient yelling uncomfortable with the bipap, called RT, RT removed the bipap and place patient back to 0.5 liters nc. patient has no sob no chest pain, tele cont to be sinus rhythm, kept clean and dry, takes 4 people to turn and reposition, aparicio cath patent.
[2021-09-08 07:19] LABS: CREATININE 0.6 mg/dL (0.6-1.3); PHOSPHOROUS 1.8 mg/dL (2.5-4.9); POTASSIUM 4.1 mmol/L (3.5-5.1)
[2021-09-08] MEDS: ALBUTEROL SULFATE 2.5 MG/3 ML NEBU NEB SCH ×4 (07:44→20:47)
[2021-09-08] MEDS: IPRATROPIUM BROMIDE 0.5 MG/2.5 ML NEBU NEB SCH ×4 (07:44→20:47)
[2021-09-08 08:00] VITALS: BP 140/64
--- NOTE | 2021-09-08 08:00 | NUR ---
RECEIVED PATIENT IN BED AWAKE ALERT AND OFF O2 SATURATING 97%, NO SOB. SR ON MONITOR
[2021-09-08] MEDS: PROTEIN SUPPLEMENT (PROSTAT) 30 ML LIQUID GT SCH ×3 (08:12→17:00)
[2021-09-08] MEDS: NUTRISOURCE FIBER 4 GM PACKET GT SCH ×3 (08:12→17:00)
[2021-09-08] MEDS: REMEDY ESSENTIAL ZINC PASTE 113 GM TOP SCH (08:14)
[2021-09-08] MEDS: FAMOTIDINE 20 MG TABLET GT SCH ×2 (08:14→20:16)
[2021-09-08] MEDS: LOSARTAN POTASSIUM 50 MG TABLET NG SCH (08:14)
[2021-09-08] MEDS: APIXABAN 5 MG TABLET NG SCH ×2 (08:17→20:20)
[2021-09-08] MEDS ORDERED: NEUTRA PHOS PACKET PO ONE ×2 (10:15→11:00)
[2021-09-08] MEDS: INSULIN REGULAR, HUMAN 300 UNIT/3 ML VIAL SQ PRN ×3 (11:07→20:14)
[2021-09-08 12:00] VITALS: BP 128/74
--- NOTE | 2021-09-08 13:00 | NUR ---
NO ACUTE CHANGE FROM MORNING ASSESSMENT, OFF O2 SATURATING 99% NO SS OF PAIN OR DISTRESS. SR ON MONITOR
--- NOTE | 2021-09-08 15:00 | NUR ---
MECHANICAL SHOVEL OPERATOR NOTIFIED ABOUT DR GWEN HAYNES PLAN TO SNF, SEE CM NOTES
[2021-09-08 16:00] VITALS: BP 143/70
--- NOTE | 2021-09-08 18:10 | NUR ---
DR LANTIGUA NOTIFIED ABOUT PATIENT STATUS ON MONITOR AND SAID OK TO DOWNGRADE TO TELE
[2021-09-08 20:00] VITALS: BP 155/76
[2021-09-08] MEDS: INSULIN GLARGINE,HUM 300 UNITS/3 ML CARTRIDGE SQ SCH (20:13)
--- NOTE | 2021-09-08 20:45 | NUR ---
PATIENT ALERT X 3, NO SOB NO CHEST PAIN, SAT WNL ON ROOM AIR sat 94%. TELE MONITOR SINUS RHYTHM, REQUIRES TOTAL ASSIST WITH ADL'S CONT TO MONITOR.
[2021-09-09 00:10] VITALS: BP 157/77
--- NOTE | 2021-09-09 00:44 | NUR ---
PATIENT WAS ON ROOM AIR , THEN APPROX. 23:40 PT SEMI AWAKE , PT PLACED ON BI/PAP WITH FULL MASK, @ 22%, TOLL WELL AT THIS TIME, STABLE, WILL CHECK PERIODICALLY , Addendum: 09/09/21 at 0047 by AIXA ESPINAL Amended: Links added.
[2021-09-09] MEDS: REMEDY ESSENTIAL ZINC PASTE 113 GM TOP SCH ×3 (02:09→21:18)
[2021-09-09 04:00] VITALS: BP 158/87
[2021-09-09] MEDS: BLOOD SUGAR DIAGNOSTIC 1 EACH STRIP VI SCH ×4 (06:48→21:20)
--- NOTE | 2021-09-09 06:48 | NUR ---
PATIENT ALERT X 3 NO SOB NO CHEST PAIN, WAS ON BIPAP MOST OF THE NIGHT, WITH EPISODE OF REMOVING THE BIPAP, SAT WNL ON ROOM AIR, NO S.S OF DISCOMFORT, TURN AND REPOSITION, KEPT CLEAN DRY AND COMFORTABLE.
--- NOTE | 2021-09-09 07:30 | NUR ---
RESTING COMFORTABLY IN BED WITH NO SS OF PAIN OR DISTRESS, RA SATURATION 99%, VERBALLY RESPONSIVE AND COOPERATIVE WITH CARE. AFEBRILE
[2021-09-09] MEDS: IPRATROPIUM BROMIDE 0.5 MG/2.5 ML NEBU NEB SCH ×4 (07:37→20:16)
[2021-09-09] MEDS: ALBUTEROL SULFATE 2.5 MG/3 ML NEBU NEB SCH ×5 (07:37→20:16)
[2021-09-09] MEDS: ACETAMINOPHEN 325 MG TABLET PO PRN (07:58)
[2021-09-09] MEDS: FAMOTIDINE 20 MG TABLET GT SCH ×2 (07:58→21:15)
[2021-09-09] MEDS: LOSARTAN POTASSIUM 50 MG TABLET NG SCH (08:01)
[2021-09-09] MEDS: APIXABAN 5 MG TABLET NG SCH ×2 (08:02→21:16)
[2021-09-09] MEDS: PROTEIN SUPPLEMENT (PROSTAT) 30 ML LIQUID GT SCH ×3 (08:03→17:14)
[2021-09-09] MEDS: NUTRISOURCE FIBER 4 GM PACKET GT SCH ×3 (08:03→17:14)
[2021-09-09] MEDS ORDERED: NEUTRA PHOS PACKET PO ONE (09:15)
--- NOTE | 2021-09-09 10:00 | NUR ---
DR DUPONT IN AND SAW PATIENT, STILL AWAITING PLACEMENT
[2021-09-09] MEDS: INSULIN REGULAR, HUMAN 300 UNIT/3 ML VIAL SQ PRN ×3 (11:53→21:22)
[2021-09-09] MEDS: IPRATROPIUM BROMIDE 0.5 MG/2.5 ML NEBU NEB PRN (11:54)
[2021-09-09 12:00] VITALS: BP 140/90
--- NOTE | 2021-09-09 12:00 | NUR ---
NO ACUTE CHANGE FROM MORNING ASSESSMENT. SEEN BY PRIMER SUPERVISOR AND RENAL DOCTOR SEE NOTES
[2021-09-09 16:00] VITALS: BP 136/58
--- NOTE | 2021-09-09 16:17 | NUR ---
AWAITING SNF PLACEMENT AND AUTHORIZATION PER CARDIAC EXERCISE SPECIALIST, DR DUPONT AWARE. PATIENT SATURATION RA 98%, DENIES PAIN OR DISTRESS. APPETITE GOOD AND ABLE TO FINISH 100% OF FOOD. REQUIRES MIN MAX ASSIST IN ALL AREAS OF ADLS. AFEBRILE
--- NOTE | 2021-09-09 17:28 | NUR ---
Received pt sleeping comfortably. On room air saturating at 99%. On air mattress. F/C intact and draining. MAIRA midline intact and patent, saline flushed. No signs of acute distress. Call lights within reach. Safety measures initiated.
[2021-09-09 20:00] VITALS: BP 145/75
[2021-09-09] MEDS: INSULIN GLARGINE,HUM 300 UNITS/3 ML CARTRIDGE SQ SCH (21:21)
--- NOTE | 2021-09-09 23:40 | NUR ---
Pt F/C found leaking. Aspirated 10 ml, removed f/c. Reinserted new f/c, inflated balloon by inserting 15 ml sterile water. Draining well. Sterile technique done. No signs of acute distress.
--- NOTE | 2021-09-10 00:27 | NUR ---
PT WAS ON ROOM AIR, PT PLACED ON BI/PAP WITH FULL MASK APPROX, 00:05 WITH SAME CURRENT SETTINGS, 15/5 , R16, 22%, ADJUST MASK AT TIMES AND CHECK , PT DOING WELL. Stacy GALEASP Addendum: 09/10/21 at 0028 by AIXA AL RT Amended: Links added.
--- NOTE | 2021-09-10 01:00 | NUR ---
Pt non compliant with Bipap. Educated pt importance of having bipap machine on, continues to insert fingers into the mask. No signs of acute distress. On room air saturating at 97%.
[2021-09-10 04:30] VITALS: BP 142/74
[2021-09-10] MEDS: BLOOD SUGAR DIAGNOSTIC 1 EACH STRIP VI SCH ×4 (06:41→21:43)
--- NOTE | 2021-09-10 06:57 | NUR ---
Pt slept intermittently throughout the night. AO x 2, forgetful at times. On room air saturating at 99%. HOB elevated. No signs of acute distress. MAIRA midline intact and patent. No BP on R Arm. F/C intact, draining. Yellow, cloudy clear urine. Call lights within reach. Safety measures maintained.
[2021-09-10] MEDS: ALBUTEROL SULFATE 2.5 MG/3 ML NEBU NEB SCH ×4 (07:22→19:12)
[2021-09-10] MEDS: IPRATROPIUM BROMIDE 0.5 MG/2.5 ML NEBU NEB SCH ×4 (07:22→19:12)
--- NOTE | 2021-09-10 08:00 | NUR ---
Aspiration precaution implemented. Pt denies any c/o pain. SAMUEL LE's Cellulitis/Redness noted with edema +1. Reapplied mepilex on sacral . Pt on bariatric bed. Weeks cath draining cloudy dark yellow urine. Pt alert and oriented x 2.
[2021-09-10] MEDS: LOSARTAN POTASSIUM 50 MG TABLET NG SCH (08:52)
[2021-09-10] MEDS: FAMOTIDINE 20 MG TABLET GT SCH ×2 (08:52→21:49)
[2021-09-10] MEDS: APIXABAN 5 MG TABLET NG SCH ×2 (08:52→21:50)
[2021-09-10] MEDS: NUTRISOURCE FIBER 4 GM PACKET GT SCH ×3 (08:52→16:48)
[2021-09-10] MEDS: PROTEIN SUPPLEMENT (PROSTAT) 30 ML LIQUID GT SCH ×3 (08:53→16:48)
[2021-09-10] MEDS: REMEDY ESSENTIAL ZINC PASTE 113 GM TOP SCH ×2 (08:53→21:43)
--- NOTE | 2021-09-10 10:00 | NUR ---
Pt tolerated physical therapy eval. Pt denies any c/o pain.
[2021-09-10 11:34] VITALS: BP 107/56
[2021-09-10] MEDS: INSULIN REGULAR, HUMAN 300 UNIT/3 ML VIAL SQ PRN ×3 (12:44→21:54)
[2021-09-10 15:34] VITALS: BP 114/47
--- NOTE | 2021-09-10 18:44 | NUR ---
Noted no vaginal bleed this shift. Readjusted f/c earlier secondary to pt c/o "irritation" - intervention effective pt states shes more comfortable. Pt on Barriatric bed tarring machine operator to turn pt q 1 on different position.s Pt denies any c/o pain. Call light is within reach.
[2021-09-10 20:00] VITALS: BP 122/56
[2021-09-10] MEDS: INSULIN GLARGINE,HUM 300 UNITS/3 ML CARTRIDGE SQ SCH (21:52)
[2021-09-11] MEDS: ACETAMINOPHEN 325 MG TABLET PO PRN ×4 (02:26→23:05)
--- NOTE | 2021-09-11 05:39 | NUR ---
Received lying in bed, anxious at times. Remains in bariatric bed. Refused bipap machine. No respiratory distress noted. Slept intermittently. Currently asleep. No dsitress, noted.
[2021-09-11 06:14] LABS: MEAN CORPUSCULAR HEMOGLOBIN 28.3 uug (24.7-32.8); MEAN CORPUSCULAR VOLUME 86.7 fL (75.5-95.3); PLATELET COUNT (AUTO) 240 K/uL (179-408)
[2021-09-11 06:30] LABS: BILIRUBIN,TOTAL 0.3 mg/dL (0.2-1.0); CREATININE 0.6 mg/dL (0.6-1.3); MAGNESIUM 2.3 mg/dL (1.8-2.4); POTASSIUM 4.5 mmol/L (3.5-5.1)
[2021-09-11] MEDS: BLOOD SUGAR DIAGNOSTIC 1 EACH STRIP VI SCH ×4 (07:12→20:39)
[2021-09-11] MEDS: IPRATROPIUM BROMIDE 0.5 MG/2.5 ML NEBU NEB SCH ×4 (07:48→19:17)
[2021-09-11] MEDS: ALBUTEROL SULFATE 2.5 MG/3 ML NEBU NEB SCH ×4 (07:48→19:17)
[2021-09-11 08:07] LABS: ABG BASE EXCESS -0.6 mmol/L; ABG HCO3 22.6 mmol/L; ABG PCO2 32.3 mmHg (35.0-45.0); ABG PH 7.462 (7.350-7.450); ABG PO2 82.1 mmHg (75.0-100.0); ABG SITE RIGHT RADIAL; ABG TOTAL HEMOGLOBIN 11.5 G/dL (12.0-16.0); COHb 0.6 % (0.5-1.5); MetHb 0.1 % (0.0-1.5); VENT MODE Room Air
[2021-09-11] MEDS: FAMOTIDINE 20 MG TABLET GT SCH ×2 (09:22→20:33)
[2021-09-11] MEDS: LOSARTAN POTASSIUM 50 MG TABLET NG SCH (09:22)
[2021-09-11] MEDS: PROTEIN SUPPLEMENT (PROSTAT) 30 ML LIQUID GT SCH ×2 (09:23→12:23)
[2021-09-11] MEDS: NUTRISOURCE FIBER 4 GM PACKET GT SCH ×3 (09:23→17:11)
[2021-09-11] MEDS: APIXABAN 5 MG TABLET NG SCH ×2 (09:23→20:39)
[2021-09-11] MEDS: REMEDY ESSENTIAL ZINC PASTE 113 GM TOP SCH ×2 (09:24→20:40)
[2021-09-11] MEDS: INSULIN REGULAR, HUMAN 300 UNIT/3 ML VIAL SQ PRN ×3 (11:40→20:38)
[2021-09-11 11:51] VITALS: BP 133/72
[2021-09-11 16:00] VITALS: BP 142/64
--- NOTE | 2021-09-11 19:00 | NUR ---
Patient alert x 3, no sob no chest pain, no complain of pain at this time. patient was kept clean and dry. on room air cont to monitor.
[2021-09-11] MEDS: INSULIN GLARGINE,HUM 300 UNITS/3 ML CARTRIDGE SQ SCH (20:37)
--- NOTE | 2021-09-11 23:47 | NUR ---
RT reported that patient refused bipap, kept saying no no. Patient was reoriented, will try again later,patient given food and pudding for comfort , cont to monitor.
[2021-09-12] MEDS: ACETAMINOPHEN 325 MG TABLET PO PRN ×3 (04:41→20:16)
[2021-09-12 06:05] LABS: HEMATOCRIT 32.4 % (31.2-41.9); MEAN CORPUSCULAR HEMOGLOBIN 28.7 uug (24.7-32.8); MEAN CORPUSCULAR VOLUME 86.6 fL (75.5-95.3); PLATELET COUNT (AUTO) 239 K/uL (179-408)
[2021-09-12 06:09] LABS: CREATININE 0.6 mg/dL (0.6-1.3); POTASSIUM 4.7 mmol/L (3.5-5.1)
[2021-09-12] MEDS: BLOOD SUGAR DIAGNOSTIC 1 EACH STRIP VI SCH ×4 (06:20→20:32)
[2021-09-12] MEDS: IPRATROPIUM BROMIDE 0.5 MG/2.5 ML NEBU NEB SCH ×4 (08:09→20:05)
[2021-09-12] MEDS: ALBUTEROL SULFATE 2.5 MG/3 ML NEBU NEB SCH ×4 (08:09→20:06)
[2021-09-12] MEDS: APIXABAN 5 MG TABLET NG SCH ×2 (09:37→20:14)
[2021-09-12] MEDS: FAMOTIDINE 20 MG TABLET GT SCH ×2 (09:37→20:14)
[2021-09-12] MEDS: REMEDY ESSENTIAL ZINC PASTE 113 GM TOP SCH ×2 (09:37→20:34)
[2021-09-12] MEDS: LOSARTAN POTASSIUM 50 MG TABLET NG SCH (09:37)
[2021-09-12] MEDS: NUTRISOURCE FIBER 4 GM PACKET GT SCH ×3 (09:38→18:06)
[2021-09-12] MEDS: INSULIN REGULAR, HUMAN 300 UNIT/3 ML VIAL SQ PRN ×4 (09:41→20:33)
--- NOTE | 2021-09-12 11:12 | NUR ---
patient screaming "hello" consistently, asked if needed assistance patient states no when nurse leaves room patient continues to scream
[2021-09-12 12:10] VITALS: BP 129/75
[2021-09-12 16:00] VITALS: BP 114/43
[2021-09-12] MEDS: INSULIN GLARGINE,HUM 300 UNITS/3 ML CARTRIDGE SQ SCH (20:31)
--- NOTE | 2021-09-13 | NUR ---
Patient refused bipap machine, kept pulling it out, reorient patient but not effective, no sob no chest pain, given tylenol 650mg po as requested by patient, kept comfortable. cont to monitor.
--- NOTE | 2021-09-13 02:27 | NUR ---
PATIENT WAS ON BI/PAP FOR LESS THAN A FEW HOURS, PULLING IT OFF, SAID SHE DOES NOT WANT TO WEAR IT , SAT 96% OFF BI/PAP, WATCHING TV, PT ON ROOM AIR, NURSE WILL, NOTIFIED .Stacy AL RCP Addendum: 09/13/21 at 0228 by AIXA AL RT Amended: Links added.
[2021-09-13] MEDS: ACETAMINOPHEN 325 MG TABLET PO PRN ×2 (03:08→12:54)
[2021-09-13 04:00] VITALS: BP 147/76
[2021-09-13] MEDS: BLOOD SUGAR DIAGNOSTIC 1 EACH STRIP VI SCH ×4 (05:38→20:52)
[2021-09-13 06:51] LABS: HEMATOCRIT 36.3 % (31.2-41.9); MEAN CORPUSCULAR HEMOGLOBIN 28.1 uug (24.7-32.8); MEAN CORPUSCULAR VOLUME 87.2 fL (75.5-95.3); PLATELET COUNT (AUTO) 266 K/uL (179-408)
[2021-09-13 07:07] LABS: CREATININE 0.6 mg/dL (0.6-1.3); POTASSIUM 4.4 mmol/L (3.5-5.1)
[2021-09-13] MEDS: IPRATROPIUM BROMIDE 0.5 MG/2.5 ML NEBU NEB SCH ×4 (08:16→20:45)
[2021-09-13] MEDS: ALBUTEROL SULFATE 2.5 MG/3 ML NEBU NEB SCH ×4 (08:16→20:45)
[2021-09-13] MEDS: LOSARTAN POTASSIUM 50 MG TABLET NG SCH (08:54)
[2021-09-13] MEDS: APIXABAN 5 MG TABLET NG SCH ×2 (08:54→20:46)
[2021-09-13] MEDS: FAMOTIDINE 20 MG TABLET GT SCH ×2 (08:55→20:43)
[2021-09-13] MEDS: REMEDY ESSENTIAL ZINC PASTE 113 GM TOP SCH ×2 (08:58→21:17)
[2021-09-13] MEDS: NUTRISOURCE FIBER 4 GM PACKET GT SCH ×3 (08:58→17:32)
[2021-09-13 12:00] VITALS: BP_SYST 124; BP_SYST 130; BP_DIAS 45; BP_DIAS 58
[2021-09-13] MEDS: INSULIN REGULAR, HUMAN 300 UNIT/3 ML VIAL SQ PRN ×3 (12:14→20:53)
[2021-09-13 12:40] LABS: ABG BASE EXCESS -0.1 mmol/L; ABG HCO3 23.4 mmol/L; ABG PCO2 34.6 mmHg (35.0-45.0); ABG PH 7.448 (7.350-7.450); ABG PO2 72.7 mmHg (75.0-100.0); ABG SITE LEFT BRACHIAL; ABG TOTAL HEMOGLOBIN 12.7 G/dL (12.0-16.0); COHb 0.8 % (0.5-1.5); O2Hb 94.9 % (94.0-97.0); VENT MODE room air
[2021-09-13] MEDS ORDERED: LORAZEPAM 2 MG/1 ML VIAL IV PRN (13:15)
[2021-09-13 16:00] VITALS: BP 114/60
--- NOTE | 2021-09-13 16:29 | NUR ---
patient is restless, keeps undressing self and throwing gown on floor, redirected with no positive effect.
[2021-09-13] MEDS: INSULIN GLARGINE,HUM 300 UNITS/3 ML CARTRIDGE SQ SCH (20:53)
[2021-09-13 21:00] VITALS: BP 128/78
--- NOTE | 2021-09-14 | NUR ---
Noted patient keep on removing BIPAP. RT made aware.
--- NOTE | 2021-09-14 00:20 | NUR ---
PATIENT PLACED ON BI/AP @ 23:55, SEMI AWAKE, SAYING SHE WILL TRY TO WEAR IT, THEN CALLED BY NURSING 00:12 - , PT PULLING OFF BI/PAP CONFUSED AT TIMES TO TIME, FARIBA Blunt AWARE PATIENT PULLS OFF BI/PAP, PT IS ON ROOM AIR. Stacy AL RCP Addendum: 09/14/21 at 0022 by AIXA AL RT Amended: Links added.
[2021-09-14] MEDS: ACETAMINOPHEN 325 MG TABLET PO PRN (00:50)
--- NOTE | 2021-09-14 03:40 | NUR ---
Patient very anxious, screaming and yelling repeatedly, "please", "please". Disrobing, pulled out her midline. When asked what she needs, patient unable to say. Confused and disoriented. Repositioned several times for comfort. Needs assessed. ALE Fernandez notified. Awaiting for any new order.
--- NOTE | 2021-09-14 03:47 | NUR ---
ALE Fernandez with order to give patient Seroquel 25mg pox1. order read back and verified. Will carry out order. New PIV placed on right FA #[id number].
--- NOTE | 2021-09-14 03:51 | NUR ---
PATIENT ON BI/PAP @ 03:45 ; AND COMPLETELY CONFUSED, REPEATING THE SAME WORDS PLEASE NIGHT OVER AND OVER, WILL NOT FOLLOW AND COMMANDS, LIKE IN A TRANCE, MOVING AROUND, ON BI/PAP WITH GOOD SAT 96%, BUT CAN NOT FOLLOW COMMANDS, NURSE DANNIE AWAREElva AL RCP Addendum: 09/14/21 at 0355 by AIXA AL RT Amended: Links added.
[2021-09-14 04:00] VITALS: BP 187/99
[2021-09-14] MEDS ORDERED: QUETIAPINE FUMARATE 25 MG TABLET PO ONE (04:00)
--- NOTE | 2021-09-14 05:26 | NUR ---
Patient calm and relax at this time. Seroquel 25mg PO effective. BIPAP in place. Weeks catheter intact and draining via gravity. Needs assessed and attended to. Safety measure maintained.
[2021-09-14 06:00] VITALS: BP 156/94
[2021-09-14 06:37] LABS: HEMATOCRIT 34.9 % (31.2-41.9); MEAN CORPUSCULAR HEMOGLOBIN 28.6 uug (24.7-32.8); MEAN CORPUSCULAR VOLUME 85.8 fL (75.5-95.3); PLATELET COUNT (AUTO) 265 K/uL (179-408)
[2021-09-14] MEDS: BLOOD SUGAR DIAGNOSTIC 1 EACH STRIP VI SCH ×4 (06:40→21:39)
[2021-09-14 06:43] LABS: CARBON DIOXIDE 24 mmol/L (21-32); CHLORIDE 100 mmol/L (98-107); CREATININE 0.5 mg/dL (0.6-1.3); GLUCOSE 93 mg/dL (74-106); POTASSIUM 4.6 mmol/L (3.5-5.1); UREA NITROGEN, BLOOD 13 mg/dL (7-18)
[2021-09-14] MEDS: IPRATROPIUM BROMIDE 0.5 MG/2.5 ML NEBU NEB SCH ×4 (07:41→19:24)
[2021-09-14] MEDS: ALBUTEROL SULFATE 2.5 MG/3 ML NEBU NEB SCH ×4 (07:41→19:24)
[2021-09-14] MEDS: NUTRISOURCE FIBER 4 GM PACKET GT SCH ×3 (09:26→16:33)
[2021-09-14] MEDS: FAMOTIDINE 20 MG TABLET GT SCH ×2 (09:26→21:39)
[2021-09-14] MEDS: APIXABAN 5 MG TABLET NG SCH ×2 (09:27→21:41)
[2021-09-14] MEDS: REMEDY ESSENTIAL ZINC PASTE 113 GM TOP SCH ×2 (09:27→22:28)
[2021-09-14] MEDS: LOSARTAN POTASSIUM 50 MG TABLET NG SCH (09:33)
--- NOTE | 2021-09-14 11:40 | NUR ---
Pt is sleeping at this time. Vitals: Pt is saturating 95% on room air. BP 131/53 HR 93. Plan is to discharge patient pending placement. Comfort measures provided, call light within reach. Will continue to monitor.
[2021-09-14 11:46] VITALS: BP 136/58
[2021-09-14 16:05] VITALS: BP 140/86
[2021-09-14] MEDS: GLUCERNA SHAKE 237 ML CAN PO SCH (16:33)
[2021-09-14 20:00] VITALS: BP 139/68
--- NOTE | 2021-09-14 21:23 | NUR ---
Patient in bed awake alert and able to make needs known.No acute distress noted. On Ra.Complaint with medication.Snacks/pudding provided. Tolerated well.HOB elevated. F/c in place draining well.Call light with in reach.
[2021-09-14] MEDS: INSULIN GLARGINE,HUM 300 UNITS/3 ML CARTRIDGE SQ SCH (21:43)
[2021-09-14] MEDS: INSULIN REGULAR, HUMAN 300 UNIT/3 ML VIAL SQ PRN (21:53)
[2021-09-15] VITALS: BP 136/66
[2021-09-15 04:26] VITALS: BP 140/53
--- NOTE | 2021-09-15 06:15 | NUR ---
Patient awake watching TV.Denies SOB and no c/o pain.BS 76 OJ and pudding given. Repositioned patient .Iv on right Fa intact and patent. Call light with in reach. All needs anticipated and met accordingly. Will endorse to oncoming shift.
[2021-09-15] MEDS: BLOOD SUGAR DIAGNOSTIC 1 EACH STRIP VI SCH ×4 (06:44→20:35)
[2021-09-15 06:51] LABS: HEMATOCRIT 33.8 % (31.2-41.9); MEAN CORPUSCULAR HEMOGLOBIN 28.4 uug (24.7-32.8); MEAN CORPUSCULAR VOLUME 86.8 fL (75.5-95.3); PLATELET COUNT (AUTO) 230 K/uL (179-408)
[2021-09-15 07:15] LABS: CARBON DIOXIDE 25 mmol/L (21-32); CHLORIDE 103 mmol/L (98-107); CREATININE 0.5 mg/dL (0.6-1.3); GLUCOSE 103 mg/dL (74-106); POTASSIUM 4.2 mmol/L (3.5-5.1); UREA NITROGEN, BLOOD 12 mg/dL (7-18)
[2021-09-15] MEDS: FAMOTIDINE 20 MG TABLET GT SCH ×2 (08:40→20:28)
[2021-09-15] MEDS: NUTRISOURCE FIBER 4 GM PACKET GT SCH ×3 (08:40→18:08)
[2021-09-15] MEDS: IPRATROPIUM BROMIDE 0.5 MG/2.5 ML NEBU NEB SCH ×4 (08:43→19:37)
[2021-09-15] MEDS: ALBUTEROL SULFATE 2.5 MG/3 ML NEBU NEB SCH ×4 (08:43→19:37)
[2021-09-15] MEDS: LOSARTAN POTASSIUM 50 MG TABLET NG SCH (08:47)
[2021-09-15] MEDS: APIXABAN 5 MG TABLET NG SCH ×2 (08:49→20:34)
[2021-09-15] MEDS: GLUCERNA SHAKE 237 ML CAN PO SCH ×2 (08:50→18:08)
[2021-09-15] MEDS: REMEDY ESSENTIAL ZINC PASTE 113 GM TOP SCH ×2 (08:50→20:37)
[2021-09-15 11:10] VITALS: BP 101/42
[2021-09-15] MEDS: INSULIN REGULAR, HUMAN 300 UNIT/3 ML VIAL SQ PRN ×3 (11:38→20:44)
[2021-09-15 15:05] VITALS: BP 114/54
--- NOTE | 2021-09-15 18:32 | NUR ---
Patient resting in bed. AOx2-3. On room air. No signs of acute distress. Compliant with medications and care. Weeks catheter draining clear, yellow urine. IV patent and intact. Patient kept clean and comfortable, turned and repositioned. Needs anticipated and met. Will endorse to incoming shift for continuity of care.
[2021-09-15] MEDS: INSULIN GLARGINE,HUM 300 UNITS/3 ML CARTRIDGE SQ SCH (20:44)
--- NOTE | 2021-09-15 21:51 | NUR ---
Patient refused BIPAP for noc. RN aware of refusal.
[2021-09-16 04:00] VITALS: BP 143/65
[2021-09-16] MEDS: IPRATROPIUM BROMIDE 0.5 MG/2.5 ML NEBU NEB SCH ×4 (07:22→19:18)
[2021-09-16] MEDS: ALBUTEROL SULFATE 2.5 MG/3 ML NEBU NEB SCH ×4 (07:23→19:18)
[2021-09-16] MEDS: BLOOD SUGAR DIAGNOSTIC 1 EACH STRIP VI SCH ×4 (07:30→20:32)
--- NOTE | 2021-09-16 07:30 | NUR ---
Received pt awake getting a breathing tx. Denies pain or sob. Comfortably resting. Stated didn't sleep much was watching tv last night. Encouraged to rest today. TV is off at this time. Safety and comfort rendered. Call light in reach. Will cont to monitor. Addendum: 09/16/21 at 0746 by DAV ARNOLD RN RFA is intact no signs of infiltration/phlebitis noted. Dressing dry.
[2021-09-16] MEDS: FAMOTIDINE 20 MG TABLET GT SCH ×2 (08:20→20:32)
[2021-09-16] MEDS: LOSARTAN POTASSIUM 50 MG TABLET NG SCH (08:20)
[2021-09-16] MEDS: GLUCERNA SHAKE 237 ML CAN PO SCH ×2 (08:21→17:19)
[2021-09-16] MEDS: NUTRISOURCE FIBER 4 GM PACKET GT SCH ×3 (08:21→17:19)
[2021-09-16] MEDS: APIXABAN 5 MG TABLET NG SCH ×2 (08:21→20:49)
[2021-09-16] MEDS: REMEDY ESSENTIAL ZINC PASTE 113 GM TOP SCH ×2 (08:22→20:51)
[2021-09-16] MEDS: INSULIN REGULAR, HUMAN 300 UNIT/3 ML VIAL SQ PRN ×3 (11:55→20:50)
[2021-09-16 12:00] VITALS: BP 106/50
[2021-09-16 16:00] VITALS: BP 124/53
--- NOTE | 2021-09-16 18:05 | NUR ---
No episode of sob. Comfortable on room air. Denies pain. FC draining yellow urine. No hematuria noted. Kept comfortable. Needs attended. Cont to monitor.
--- NOTE | 2021-09-16 19:35 | NUR ---
Received patient in bed, no sob no chest pain, on room air, requires total assist with ADL's, aparicio cath patent, on Bariatric bed. Patient kept clean and dry , no complain of pain at this time, cont to monitor.
[2021-09-16 20:00] VITALS: BP 126/54
[2021-09-16] MEDS: ACETAMINOPHEN 325 MG TABLET PO PRN (20:32)
[2021-09-16] MEDS: INSULIN GLARGINE,HUM 300 UNITS/3 ML CARTRIDGE SQ SCH (20:50)
--- NOTE | 2021-09-16 23:00 | NUR ---
Pt refused to be placed on BIPAP for NOC/sleep. Pt remains on R/A and no resp. distress noted. RN WG aware and notified.
--- NOTE | 2021-09-16 23:00 | NUR ---
Patient awake, refused Bipap machine, gets agitated, patient sat wnl, kept clean and dry, cont to monitor.
[2021-09-17 04:00] VITALS: BP 138/60
[2021-09-17] MEDS: BLOOD SUGAR DIAGNOSTIC 1 EACH STRIP VI SCH ×4 (05:19→20:51)
--- NOTE | 2021-09-17 05:57 | NUR ---
Patient awake, no sob no chest pain, no complain of pain, remains on room air, sat 96%. Patient kept clean and comfortable, call light within reach.
[2021-09-17 07:04] LABS: HEMATOCRIT 33.6 % (31.2-41.9); MEAN CORPUSCULAR HEMOGLOBIN 28.2 uug (24.7-32.8); MEAN CORPUSCULAR VOLUME 86.3 fL (75.5-95.3); PLATELET COUNT (AUTO) 222 K/uL (179-408)
[2021-09-17] MEDS: IPRATROPIUM BROMIDE 0.5 MG/2.5 ML NEBU NEB SCH ×4 (07:16→19:19)
[2021-09-17] MEDS: ALBUTEROL SULFATE 2.5 MG/3 ML NEBU NEB SCH ×4 (07:16→19:19)
[2021-09-17 07:19] LABS: CARBON DIOXIDE 26 mmol/L (21-32); CHLORIDE 101 mmol/L (98-107); CREATININE 0.5 mg/dL (0.6-1.3); GLUCOSE 137 mg/dL (74-106); POTASSIUM 4.1 mmol/L (3.5-5.1); UREA NITROGEN, BLOOD 13 mg/dL (7-18)
--- NOTE | 2021-09-17 07:42 | NUR ---
Received awake and verbally responsive comfortably watching tv. Denies sob or pain. Stated didn't sleep much last night and will try to get some rest today. FC intact draining yellow urine no hematuria. Rfa IV intact and patent no signs of infiltration. Patient is in pleasant mood no complaints at this time. SAfety and comfort maintained.
[2021-09-17] MEDS: LOSARTAN POTASSIUM 50 MG TABLET NG SCH (08:28)
[2021-09-17] MEDS: FAMOTIDINE 20 MG TABLET GT SCH ×2 (08:28→20:50)
[2021-09-17] MEDS: APIXABAN 5 MG TABLET NG SCH ×2 (08:29→20:46)
[2021-09-17] MEDS: INSULIN REGULAR, HUMAN 300 UNIT/3 ML VIAL SQ PRN ×4 (08:29→20:46)
[2021-09-17] MEDS: REMEDY ESSENTIAL ZINC PASTE 113 GM TOP SCH ×2 (08:30→20:51)
[2021-09-17] MEDS: GLUCERNA SHAKE 237 ML CAN PO SCH ×2 (08:30→17:06)
[2021-09-17] MEDS: NUTRISOURCE FIBER 4 GM PACKET GT SCH ×3 (08:30→17:06)
[2021-09-17 12:25] VITALS: BP 114/50
[2021-09-17 16:11] VITALS: BP 135/58
--- NOTE | 2021-09-17 18:49 | NUR ---
resting comfortably. no acute distress. safety and comfort maintained. needs attended.
[2021-09-17 20:00] VITALS: BP 136/65
[2021-09-17] MEDS: INSULIN GLARGINE,HUM 300 UNITS/3 ML CARTRIDGE SQ SCH (20:45)
--- NOTE | 2021-09-18 03:31 | NUR ---
Patient sleep intermittenly, no sob no chest pain, no complain of pain, aparicio cath patent draining yellow color urine in moderate amount, with episode of anxiety mb calling out hello, attend all needs as much as possible, kept clean and dry, offered food and water, call light within reach, on bariatric bed due to its weight, kept comfortable.
[2021-09-18 04:00] VITALS: BP 133/60
[2021-09-18] MEDS: BLOOD SUGAR DIAGNOSTIC 1 EACH STRIP VI SCH ×4 (05:34→20:25)
--- NOTE | 2021-09-18 07:30 | NUR ---
Received patient in bed awake and alert and oriented times 4. No sign of distress noted. Patient is saturating well on room air. Pt states she did not sleep well in the night and was tired. Safety precautions are in place. Will continue to monitor.
[2021-09-18 07:32] LABS: HEMATOCRIT 32.8 % (31.2-41.9); MEAN CORPUSCULAR HEMOGLOBIN 28.3 uug (24.7-32.8); MEAN CORPUSCULAR VOLUME 86.3 fL (75.5-95.3); PLATELET COUNT (AUTO) 216 K/uL (179-408)
[2021-09-18 07:52] LABS: CARBON DIOXIDE 27 mmol/L (21-32); CHLORIDE 101 mmol/L (98-107); CREATININE 0.5 mg/dL (0.6-1.3); GLUCOSE 101 mg/dL (74-106); PHOSPHOROUS 2.7 mg/dL (2.5-4.9); POTASSIUM 4.2 mmol/L (3.5-5.1); UREA NITROGEN, BLOOD 10 mg/dL (7-18)
[2021-09-18] MEDS: ALBUTEROL SULFATE 2.5 MG/3 ML NEBU NEB SCH ×4 (08:00→19:49)
[2021-09-18] MEDS: IPRATROPIUM BROMIDE 0.5 MG/2.5 ML NEBU NEB SCH ×4 (08:00→19:49)
[2021-09-18 08:48] LABS: BILIRUBIN,DIRECT 0.1 mg/dL (0.0-0.2); BILIRUBIN,TOTAL 0.4 mg/dL (0.2-1.0); TOTAL PROTEIN, SERUM 6.2 g/dL (6.4-8.2)
[2021-09-18] MEDS: FAMOTIDINE 20 MG TABLET GT SCH ×2 (09:15→20:29)
[2021-09-18] MEDS: NUTRISOURCE FIBER 4 GM PACKET GT SCH ×3 (09:16→17:11)
[2021-09-18] MEDS: GLUCERNA SHAKE 237 ML CAN PO SCH ×2 (09:16→17:11)
[2021-09-18] MEDS: APIXABAN 5 MG TABLET NG SCH ×2 (09:16→20:34)
[2021-09-18] MEDS: REMEDY ESSENTIAL ZINC PASTE 113 GM TOP SCH ×2 (09:17→21:59)
[2021-09-18] MEDS: LOSARTAN POTASSIUM 50 MG TABLET NG SCH (09:21)
[2021-09-18 11:43] VITALS: BP 129/62
[2021-09-18] MEDS: INSULIN REGULAR, HUMAN 300 UNIT/3 ML VIAL SQ PRN ×3 (12:35→20:36)
[2021-09-18 16:00] VITALS: BP 143/61
--- NOTE | 2021-09-18 18:27 | NUR ---
Patient left resting in bed. No sign of distress noted. Gave all medications as ordered. Safety measures implemented. Will endorse to the oncoming nurse.
--- NOTE | 2021-09-18 19:55 | NUR ---
Patient requesting sleeping meds, notify Dr Payton with order of temazepam 15mg po q hs prn.
[2021-09-18] MEDS: ACETAMINOPHEN 325 MG TABLET PO PRN (20:29)
[2021-09-18] MEDS: INSULIN GLARGINE,HUM 300 UNITS/3 ML CARTRIDGE SQ SCH (20:35)
[2021-09-18 20:36] VITALS: BP 145/68
[2021-09-18] MEDS: TEMAZEPAM 15 MG CAPSULE PO PRN (21:59)
--- NOTE | 2021-09-18 22:40 | NUR ---
Patient given Restoril for sleep with some effectivenes, patient fighting sleep, kept clean dry given water juice and snack, cont to monitor.
--- NOTE | 2021-09-19 | NUR ---
Patient refused bipap, kept removing the bipap, unable to follow teaching and instructions. kept comfortable.
--- NOTE | 2021-09-19 00:33 | NUR ---
23:50 - PATIENT PLACED BACK ON BI/PAP WITH FULL LARGE MASK, PT GETTING SLEEPY, SETTINGS, 25/11 , R16, FIO2 @ 22%, PT DOES GET RESTLESS AT TIMES, MOVES AROUND, PT OK NOW ON BI/PAP , SAT 96%, WILL CHECK PERIODICALLY. Stacy AL RCP Addendum: 09/19/21 at 0035 by AIXA AL RT Amended: Links added.
[2021-09-19 04:38] VITALS: BP 141/61
[2021-09-19] MEDS: BLOOD SUGAR DIAGNOSTIC 1 EACH STRIP VI SCH ×4 (05:59→20:20)
--- NOTE | 2021-09-19 06:14 | NUR ---
Patient awake alert x3, no sob no chest pain, no complain of pain, turn and reposition, kept clean and dry, aparicio cath patent draining with yellow color urine in moderate amount. Patient has small bm, kept clean and dry, patient remains room air, sat 93 cont to monitor.
[2021-09-19] MEDS: IPRATROPIUM BROMIDE 0.5 MG/2.5 ML NEBU NEB SCH ×4 (07:23→19:19)
[2021-09-19] MEDS: ALBUTEROL SULFATE 2.5 MG/3 ML NEBU NEB SCH ×4 (07:23→19:19)
--- NOTE | 2021-09-19 07:49 | NUR ---
RECEIVED AWAKE WATCHING TV. DENIES PAIN OR SOB. NO SIGNS OF INFILTRATION/PHLEBITIS ON IV SITE. FC DRAINING YELLOW URINE NO HEMATURIA. PLEASANT MOOD. COMFORTABLE. SAFETY MAINTAINED. CALL LIGHT IN REACH.
[2021-09-19] MEDS: LOSARTAN POTASSIUM 50 MG TABLET NG SCH (08:45)
[2021-09-19] MEDS: FAMOTIDINE 20 MG TABLET GT SCH ×2 (08:45→20:10)
[2021-09-19] MEDS: APIXABAN 5 MG TABLET NG SCH ×2 (08:46→20:12)
[2021-09-19] MEDS: REMEDY ESSENTIAL ZINC PASTE 113 GM TOP SCH ×2 (08:46→20:12)
[2021-09-19] MEDS: GLUCERNA SHAKE 237 ML CAN PO SCH ×2 (08:46→09:49)
[2021-09-19] MEDS: NUTRISOURCE FIBER 4 GM PACKET GT SCH ×3 (08:46→16:56)
[2021-09-19 11:19] VITALS: BP 120/56
[2021-09-19] MEDS: INSULIN REGULAR, HUMAN 300 UNIT/3 ML VIAL SQ PRN ×3 (11:59→20:21)
[2021-09-19 15:34] VITALS: BP 120/56
--- NOTE | 2021-09-19 17:40 | NUR ---
COMFORTABLY EATING WHILE WATCHING TV. NO ACUTE CHANGE FROM MORNING ASSESSMENT. NEEDS ATTENDED.
[2021-09-19 20:00] VITALS: BP 121/56
[2021-09-19] MEDS: INSULIN GLARGINE,HUM 300 UNITS/3 ML CARTRIDGE SQ SCH (20:20)
[2021-09-20 04:00] VITALS: BP 123/69
[2021-09-20] MEDS: BLOOD SUGAR DIAGNOSTIC 1 EACH STRIP VI SCH ×4 (06:36→21:06)
[2021-09-20] MEDS: IPRATROPIUM BROMIDE 0.5 MG/2.5 ML NEBU NEB SCH ×4 (07:49→19:32)
[2021-09-20] MEDS: ALBUTEROL SULFATE 2.5 MG/3 ML NEBU NEB SCH ×4 (07:49→19:32)
[2021-09-20] MEDS: NUTRISOURCE FIBER 4 GM PACKET GT SCH ×3 (08:23→17:08)
[2021-09-20] MEDS: FAMOTIDINE 20 MG TABLET GT SCH ×2 (08:23→21:08)
[2021-09-20] MEDS: LOSARTAN POTASSIUM 50 MG TABLET NG SCH (08:24)
[2021-09-20] MEDS: REMEDY ESSENTIAL ZINC PASTE 113 GM TOP SCH ×2 (08:25→21:06)
[2021-09-20] MEDS: GLUCERNA SHAKE 237 ML CAN PO SCH (08:25)
[2021-09-20] MEDS: APIXABAN 5 MG TABLET NG SCH ×2 (08:27→21:09)
[2021-09-20 11:49] VITALS: BP 121/67
[2021-09-20] MEDS: INSULIN REGULAR, HUMAN 300 UNIT/3 ML VIAL SQ PRN ×2 (17:07→21:11)
--- NOTE | 2021-09-20 18:42 | NUR ---
patient remain awake alert Ox3, no sob no chest pain, no complain of pain, turn and reposition q2 hours, kept clean and dry, Weeks cath patent draining with yellow color urine in moderate amount. patient remains at room air, no respiratory distress noted will cont to monitor for comfort and safety.
[2021-09-20] MEDS: INSULIN GLARGINE,HUM 300 UNITS/3 ML CARTRIDGE SQ SCH (21:10)
--- NOTE | 2021-09-21 06:35 | NUR ---
Patient remained stable. frequent visual checks done. FC intact, draining well. BS 111mg/dL, no insulin coverage per scale. safety measures maintained. all due meds given. all needs attended. kept call light within reach. no other concern identified. will endorse to the next shift for continuity of care.
[2021-09-21] MEDS: BLOOD SUGAR DIAGNOSTIC 1 EACH STRIP VI SCH ×4 (06:41→20:06)
[2021-09-21 07:07] LABS: HEMATOCRIT 31.7 % (31.2-41.9); MEAN CORPUSCULAR HEMOGLOBIN 28.5 uug (24.7-32.8); MEAN CORPUSCULAR VOLUME 85.6 fL (75.5-95.3); PLATELET COUNT (AUTO) 244 K/uL (179-408)
[2021-09-21] MEDS: IPRATROPIUM BROMIDE 0.5 MG/2.5 ML NEBU NEB SCH ×4 (07:22→20:52)
[2021-09-21] MEDS: ALBUTEROL SULFATE 2.5 MG/3 ML NEBU NEB SCH ×4 (07:22→20:52)
[2021-09-21 07:25] LABS: BILIRUBIN,TOTAL 0.3 mg/dL (0.2-1.0); CREATININE 0.6 mg/dL (0.6-1.3); MAGNESIUM 1.9 mg/dL (1.8-2.4); PHOSPHOROUS 2.9 mg/dL (2.5-4.9); POTASSIUM 4.1 mmol/L (3.5-5.1); TOTAL PROTEIN, SERUM 6.2 g/dL (6.4-8.2)
[2021-09-21] MEDS: FAMOTIDINE 20 MG TABLET GT SCH ×2 (09:43→20:11)
[2021-09-21] MEDS: APIXABAN 5 MG TABLET NG SCH ×2 (09:44→20:11)
[2021-09-21] MEDS: LOSARTAN POTASSIUM 50 MG TABLET NG SCH (09:44)
[2021-09-21] MEDS: REMEDY ESSENTIAL ZINC PASTE 113 GM TOP SCH ×2 (09:45→20:13)
[2021-09-21] MEDS: NUTRISOURCE FIBER 4 GM PACKET GT SCH ×3 (09:45→17:00)
[2021-09-21] MEDS: GLUCERNA SHAKE 237 ML CAN PO SCH (09:46)
[2021-09-21 11:35] VITALS: BP 118/53
[2021-09-21] MEDS: INSULIN REGULAR, HUMAN 300 UNIT/3 ML VIAL SQ PRN ×3 (11:43→20:11)
[2021-09-21 16:00] VITALS: BP 122/50
[2021-09-21] MEDS: INSULIN GLARGINE,HUM 300 UNITS/3 ML CARTRIDGE SQ SCH (20:10)
[2021-09-21 20:19] VITALS: BP 137/66
--- NOTE | 2021-09-22 00:05 | NUR ---
PATIENT WAS ON BI/PAP @ 23:15 DOING OK, BUT THEN CALLED BY NURSING AROUND 23:50 , TAKING IT OFF, SAID IT BOTHERS AND TO TIGHT FOR HER FACE, SO BI/PAP REMAINS NOW OFF, PATIENT ON ROOM AIR, SAID SHE FEELS BETTER, PT STILL AWAKE AT TIMES .Stacy AL RCP Addendum: 09/22/21 at 0007 by AIXA AL RT Amended: Links added.
[2021-09-22 04:41] VITALS: BP 126/55
[2021-09-22] MEDS: BLOOD SUGAR DIAGNOSTIC 1 EACH STRIP VI SCH ×4 (06:33→21:25)
[2021-09-22] MEDS: ALBUTEROL SULFATE 2.5 MG/3 ML NEBU NEB SCH ×4 (07:15→20:24)
[2021-09-22] MEDS: IPRATROPIUM BROMIDE 0.5 MG/2.5 ML NEBU NEB SCH ×4 (07:15→20:24)
[2021-09-22 08:00] VITALS: BP 119/55
[2021-09-22] MEDS: FAMOTIDINE 20 MG TABLET GT SCH ×2 (08:50→21:11)
[2021-09-22] MEDS: GLUCERNA SHAKE 237 ML CAN PO SCH (08:51)
[2021-09-22] MEDS: REMEDY ESSENTIAL ZINC PASTE 113 GM TOP SCH ×2 (08:52→21:12)
[2021-09-22] MEDS: APIXABAN 5 MG TABLET NG SCH ×2 (08:52→21:10)
[2021-09-22] MEDS: NUTRISOURCE FIBER 4 GM PACKET GT SCH ×3 (08:53→16:11)
[2021-09-22] MEDS: LOSARTAN POTASSIUM 50 MG TABLET NG SCH (08:55)
[2021-09-22 11:14] VITALS: BP 136/53
[2021-09-22] MEDS: INSULIN REGULAR, HUMAN 300 UNIT/3 ML VIAL SQ PRN ×2 (11:41→16:30)
--- NOTE | 2021-09-22 15:16 | NUR ---
[facility] CALLED FOR UPDATE IF PATIENT HAS A DISCHARGE ORDER SO THEY CAN GET A BED HOLD AT [facility] HOWEVER PATIENT MUST HAVE NECESSARY MEDICAL EQUIPMENT AVAILABLE. ACCORDING TO CASE MANAGEMENT NOTE UNABLE TO GET BIPAP UNTIL FRIDAY AND ARE WORKING ON GETTING BARIATRIC BED. INFORMED THIS TO [facility] IS THE LAST NOTE CASE MANAGEMENT LEFT FOR TODAY.
[2021-09-22 16:18] VITALS: BP 139/59
--- NOTE | 2021-09-22 19:30 | NUR ---
received patient awake , able to follow command , on room air , , bilateral lower extremities very slight pinkish color , aparicio intact , iv intact
[2021-09-22 20:00] VITALS: BP 133/61
[2021-09-22] MEDS: INSULIN GLARGINE,HUM 300 UNITS/3 ML CARTRIDGE SQ SCH (21:23)
--- NOTE | 2021-09-22 23:00 | NUR ---
patient was placed on bipap
--- NOTE | 2021-09-22 23:40 | NUR ---
patient requested bipap to be taken off , rt made aware
--- NOTE | 2021-09-23 00:04 | NUR ---
PATIENT SEMI AWAKE, PT AGREED TO WEAR OR ATTEMPT TO WEAR BI/PAP MACHINE, YOU PUT IT ON HER, THEN SHE STARTS MOVING IT OFF HER FACE, AND PULLS IT OFF, SAID ITS UNCOMFORTABLE, PATIENT IS ON ROOM AIR , SAT 965%, NURSE INFORMED, PT SAYS SHE WILL TRY, BUT ALWAYS PULLS IT OFF, WHEN YOU LEAVE HER ROOM .Stacy AL RCP Addendum: 09/24/21 at 0006 by AIXA AL RT Amended: Links added.
--- NOTE | 2021-09-23 00:52 | NUR ---
patient requested to be on a bipap again , placed on bipap 15/5 16 fio2 22 %
--- NOTE | 2021-09-23 01:05 | NUR ---
RT AND PRIMARY NURSE HAVE BEEN IN THE ROOM MULTIPLE TIMES AT THE BEDSIDE , EXPLAINING TO THE PATIENT IMPORTANCE OF THE BIPAP , NOW PATIENT REQUESTING THE BIPAP TO BE OFF AGAIN
--- NOTE | 2021-09-23 01:10 | NUR ---
BIPAP REMOVED PER PATIENT'S REQUEST
--- NOTE | 2021-09-23 01:26 | NUR ---
PT WAS WEARING BI/PAP ~ 23:50 , WITH NEW XL MASK, BUT THEN PULLS IT OFF AFTER YOU LEAVE, SAID IT BOTHERS HER FACE, JOSEPH Blunt NOTIFIED, PATIENT IS ON ROOM AIR, STABLE SAT 96% . Stacy AL RCP Addendum: 09/23/21 at 0128 by AIXA AL RT Amended: Links added.
[2021-09-23] MEDS: TEMAZEPAM 15 MG CAPSULE PO PRN (03:26)
[2021-09-23 04:00] VITALS: BP 112/53
[2021-09-23] MEDS: BLOOD SUGAR DIAGNOSTIC 1 EACH STRIP VI SCH ×4 (06:21→20:39)
[2021-09-23] MEDS: ALBUTEROL SULFATE 2.5 MG/3 ML NEBU NEB SCH ×4 (07:51→20:19)
[2021-09-23] MEDS: IPRATROPIUM BROMIDE 0.5 MG/2.5 ML NEBU NEB SCH ×4 (07:51→20:19)
[2021-09-23] MEDS: LOSARTAN POTASSIUM 50 MG TABLET NG SCH (08:34)
[2021-09-23] MEDS: APIXABAN 5 MG TABLET NG SCH ×2 (08:35→20:31)
[2021-09-23] MEDS: FAMOTIDINE 20 MG TABLET GT SCH ×2 (08:35→20:30)
[2021-09-23] MEDS: NUTRISOURCE FIBER 4 GM PACKET GT SCH ×3 (08:36→16:47)
[2021-09-23] MEDS: REMEDY ESSENTIAL ZINC PASTE 113 GM TOP SCH ×2 (08:37→20:39)
[2021-09-23] MEDS: GLUCERNA SHAKE 237 ML CAN PO SCH (08:37)
[2021-09-23] MEDS: INSULIN REGULAR, HUMAN 300 UNIT/3 ML VIAL SQ PRN ×4 (09:19→20:33)
[2021-09-23 11:48] VITALS: BP 118/59
[2021-09-23 16:00] VITALS: BP 143/54
--- NOTE | 2021-09-23 19:30 | NUR ---
Received pt awake, alert and orientedx4. Pt in no acute distress. Iv intact. Pt on Weeks catheter and draining well. Safety and comfort provided. Will continue to monitor.
[2021-09-23 20:00] VITALS: BP 142/52
[2021-09-23] MEDS: INSULIN GLARGINE,HUM 300 UNITS/3 ML CARTRIDGE SQ SCH (20:32)
[2021-09-24] MEDS: TEMAZEPAM 15 MG CAPSULE PO PRN ×2 (02:25→23:59)
[2021-09-24] MEDS: ACETAMINOPHEN 325 MG TABLET PO PRN (02:25)
--- NOTE | 2021-09-24 03:30 | NUR ---
Restoril 15 mg prn given at 0225h for sleep as per pt request . Pt tolerated it well. Pt given Tylenol 650 mg prn at 0225h as per pt request. Pt stated she has headache. Pt tolerated it well. After an hour pt is sleeping comfortably and in no acute distress.
[2021-09-24 04:00] VITALS: BP 136/61
--- NOTE | 2021-09-24 05:36 | NUR ---
Pt slept intermittently. Pt in no acute distress. Iv intact. Pt aparicio catheter intact and draining well. Pt turned and repositioned. Blood sugar was 157. Pt vital signs within normal limit. Safety and comfort provided.All needs are ,et. Will endorse to incoming nurse for continuity of care.
[2021-09-24] MEDS: BLOOD SUGAR DIAGNOSTIC 1 EACH STRIP VI SCH ×4 (06:32→20:34)
[2021-09-24 06:46] LABS: HEMATOCRIT 31.8 % (31.2-41.9); MEAN CORPUSCULAR HEMOGLOBIN 27.9 uug (24.7-32.8); MEAN CORPUSCULAR VOLUME 86.2 fL (75.5-95.3); PLATELET COUNT (AUTO) 294 K/uL (179-408)
--- NOTE | 2021-09-24 07:10 | NUR ---
Received pt. AAOX4. vitals stable, no c/of pain. On room air, sleeping intermittently.
[2021-09-24 07:12] LABS: CREATININE 0.8 mg/dL (0.6-1.3); MAGNESIUM 2.1 mg/dL (1.8-2.4); POTASSIUM 4.9 mmol/L (3.5-5.1)
[2021-09-24] MEDS: ALBUTEROL SULFATE 2.5 MG/3 ML NEBU NEB SCH (07:47)
[2021-09-24] MEDS: IPRATROPIUM BROMIDE 0.5 MG/2.5 ML NEBU NEB SCH (07:47)
[2021-09-24 08:00] VITALS: BP 122/53
[2021-09-24] MEDS: NUTRISOURCE FIBER 4 GM PACKET GT SCH (08:33)
[2021-09-24] MEDS: LOSARTAN POTASSIUM 50 MG TABLET NG SCH (08:33)
[2021-09-24] MEDS: FAMOTIDINE 20 MG TABLET GT SCH (08:33)
[2021-09-24] MEDS: GLUCERNA SHAKE 237 ML CAN PO SCH (08:34)
[2021-09-24] MEDS: APIXABAN 5 MG TABLET NG SCH (08:34)
[2021-09-24] MEDS: REMEDY ESSENTIAL ZINC PASTE 113 GM TOP SCH ×2 (08:34→20:33)
[2021-09-24] MEDS: INSULIN REGULAR, HUMAN 300 UNIT/3 ML VIAL SQ PRN ×3 (11:21→20:35)
[2021-09-24] MEDS: IPRATROPIUM BROMIDE 0.5 MG/2.5 ML NEBU NEB PRN (11:23)
[2021-09-24] MEDS: ALBUTEROL SULFATE 2.5 MG/3 ML NEBU NEB PRN (11:23)
[2021-09-24 12:04] VITALS: BP 109/51
--- NOTE | 2021-09-24 12:25 | NUR ---
Rapid swabb collected and taken down by laboratory animal care veterinarian.
[2021-09-24] MEDS ORDERED: LACTULOSE 20 G/30 ML LIQUID UDC PO PRN (14:30)
[2021-09-24] MEDS ORDERED: MAGNESIUM HYDROXIDE 30 ML LIQUID UDC PO PRN (14:45)
[2021-09-24] MEDS ORDERED: MIRALAX 17 GM POWD.PACK PO PRN (14:45)
--- NOTE | 2021-09-24 15:00 | NUR ---
A call to [facility] and at this time telephone report given to nurse Cheryl. pt. will be going to room 31A. All systems addressed with nurse. she was also informed that [facility] still awaiting picker machine operator time confirmation.
[2021-09-24] MEDS ORDERED: Blood Sugar Diagnostic VI (15:19)
[2021-09-24] MEDS ORDERED: MENT113O TP (15:19)
[2021-09-24] MEDS ORDERED: FAMO-132 PO (15:19)
[2021-09-24] MEDS ORDERED: NA P133E RC (15:19)
[2021-09-24] MEDS ORDERED: MAGN400O6 PO (15:19)
[2021-09-24] MEDS ORDERED: INSU100V28 SQ (15:19)
[2021-09-24] MEDS ORDERED: MULT-594 PO (15:19)
[2021-09-24] MEDS ORDERED: MENT113O TOP (15:19)
[2021-09-24] MEDS ORDERED: Wheat Dextrin PO (15:19)
[2021-09-24] MEDS ORDERED: IPRA0.2S6 NEB (15:19)
[2021-09-24] MEDS ORDERED: Insulin Glargine,Hum SQ (15:19)
[2021-09-24] MEDS ORDERED: ALBU2.5V7 NEB (15:19)
[2021-09-24] MEDS ORDERED: TEMA15CA PO (15:19)
[2021-09-24] MEDS ORDERED: ACET325T53 PO (15:19)
[2021-09-24] MEDS ORDERED: LOSA50TA3 PO (15:19)
[2021-09-24] MEDS ORDERED: APIX5TAB PO (15:19)
[2021-09-24] MEDS ORDERED: POLY17PO4 PO (15:19)
[2021-09-24] MEDS ORDERED: DEXT50DI8 IV (15:19)
[2021-09-24 15:20] VITALS: BP 125/54
--- NOTE | 2021-09-24 15:24 | NUR ---
Patient will be going to [facility] room 31A. AAOx4. vitals: 98.1, RR 21, HR 85, and SBP of 122/53. No c/of pain. Tolerated lunch ok with no n/v/d. No skin breakdown. BLE with slightly pinkish in color.
--- NOTE | 2021-09-24 16:30 | NUR ---
A call from Mr. Patel Stanislav inquiring about pt's personal cell phone. the under-ladan search for phone in the room and it wasn't found. According to pt. She had her phone 2 days ago and since yesterday she doesn't know where she put it" Mr. Patel informed. charge R.N. Cornelius also informed and at this time charge hand. agrees with pt. that He saw the phone 2 days ago".
[2021-09-24] MEDS: NUTRISOURCE FIBER 4 GM PACKET PO SCH (17:43)
--- NOTE | 2021-09-24 18:36 | NUR ---
Left pt. comfortable in bed. resting vitals stable. transfer cancelled due to lack of proper transportation for her weight. Patient left with IV line patent, no injury sustained. Safety implemented at all times.
--- NOTE | 2021-09-24 19:30 | NUR ---
Received pt awake, alert and orientedx3.Pt in no acute distress. Pt aparicio intact and draining well. Safety and comfort provided. Will continue to monitor.
[2021-09-24] MEDS: APIXABAN 5 MG TABLET PO SCH (20:32)
[2021-09-24] MEDS: FAMOTIDINE 20 MG TABLET PO SCH (20:33)
[2021-09-24 20:41] VITALS: BP 125/62
[2021-09-24] MEDS ORDERED: INSULIN GLARGINE,HUM 300 UNITS/3 ML CARTRIDGE SQ SCH (21:00)
--- NOTE | 2021-09-24 23:59 | NUR ---
Restoril 15mg prn given for pt as per pt request for sleep. Pt tolerated it well. Will continue to monitor.
--- NOTE | 2021-09-25 01:19 | NUR ---
Patient respiratory orders reviewed. Active NOC BiPap orders. Patient assessed, no signs or symptoms of respiratory distress noted. Patient states she has not been using machine. States she doesn't sleep much and has been removing mask when offered. No complications noted. Will continue to monitor and offer again. Risks and benefits explains X3.
[2021-09-25 04:25] VITALS: BP 105/54
--- NOTE | 2021-09-25 06:00 | NUR ---
Pt slept intermittently. Pt in no acute distress. Pt IV intact. Pt turned and repositioned. Prescribed medication given and pt tolerated it well. Safety and comfort provided.Pt vital signs within normal limit. Will endorse to incoming nurse for continuity of care.
[2021-09-25 06:01] LABS: HEMATOCRIT 32.2 % (31.2-41.9); MEAN CORPUSCULAR HEMOGLOBIN 28.1 uug (24.7-32.8); MEAN CORPUSCULAR VOLUME 85.4 fL (75.5-95.3); PLATELET COUNT (AUTO) 320 K/uL (179-408)
[2021-09-25 06:22] LABS: CREATININE 0.8 mg/dL (0.6-1.3); MAGNESIUM 2.2 mg/dL (1.8-2.4); PHOSPHOROUS 2.9 mg/dL (2.5-4.9); POTASSIUM 4.5 mmol/L (3.5-5.1)
[2021-09-25] MEDS: BLOOD SUGAR DIAGNOSTIC 1 EACH STRIP VI SCH ×2 (06:41→12:21)
[2021-09-25] MEDS: APIXABAN 5 MG TABLET PO SCH (08:25)
[2021-09-25] MEDS: FAMOTIDINE 20 MG TABLET PO SCH (08:25)
[2021-09-25] MEDS: REMEDY ESSENTIAL ZINC PASTE 113 GM TOP SCH (08:27)
[2021-09-25] MEDS: NUTRISOURCE FIBER 4 GM PACKET PO SCH ×2 (08:27→12:21)
[2021-09-25] MEDS: INSULIN REGULAR, HUMAN 300 UNIT/3 ML VIAL SQ PRN ×2 (08:46→12:23)
[2021-09-25] MEDS ORDERED: LOSARTAN POTASSIUM 50 MG TABLET PO SCH (09:00)
[2021-09-25 12:00] VITALS: BP 118/64
[2021-09-25 12:02] VITALS: BP 118/54
--- NOTE | 2021-09-25 13:45 | NUR ---
new discharge order, unable to review discharge information with patient due to cognitive problem. paperwork signed by 2 RN, patient arrived to facility with no belongings, belonging paperwork completed. Called [facility] and gave report to david. Iv site removed no bleeding noted.
--- NOTE | 2021-09-25 13:46 | NUR ---
4 blood bank laboratory professional in unit, report was given all questions answered.
--- NOTE | 2021-09-25 13:56 | NUR ---
patient left unit, upon transfer patient is stable v/s wnl, skin remained intact, no c/o pain or discomfort.
== END 2021-09-25 13:58 | DRG 870 ==
LOC: ER 22:21 → TRANSITION 08-13 06:58 → CCU 08-13 12:31 → MEDSURG3 09-06 11:19 → TELE-TD3 09-06 11:34 → TELE3 09-08 18:02 → MEDSURG3 09-09 10:56
PROVIDERS: ADMIT Nurse Practitioner Acute Care; ATTEND Nurse Practitioner Acute Care
PROC: 5A09457 Assistance with Respiratory Ventilation, 24-96 Consecutive Hours, Continuous Positive Airway Pressure (ICD-10-PCS; principal; 2021-08-13)
PROC: 02HV33Z Insertion of Infusion Device into Superior Vena Cava, Percutaneous Approach (ICD-10-PCS; 2021-08-13)
PROC: 5A1955Z Respiratory Ventilation, Greater than 96 Consecutive Hours (ICD-10-PCS; 2021-08-15)
PROC: 0BH17EZ Insertion of Endotracheal Airway into Trachea, Via Natural or Artificial Opening (ICD-10-PCS; 2021-08-15)
PROC: 0DH67UZ Insertion of Feeding Device into Stomach, Via Natural or Artificial Opening (ICD-10-PCS; 2021-08-16)
PROC: 05HA33Z Insertion of Infusion Device into Left Brachial Vein, Percutaneous Approach (ICD-10-PCS; 2021-08-29)
DX: A41.9 Sepsis, unspecified organism (principal); J96.21 Acute and chronic respiratory failure with hypoxia; I50.33 Acute on chronic diastolic (congestive) heart failure; G92.8 Other toxic encephalopathy; N17.0 Acute kidney failure with tubular necrosis; E43 Unspecified severe protein-calorie malnutrition; J96.22 Acute and chronic respiratory failure with hypercapnia; J69.0 Pneumonitis due to inhalation of food and vomit; I13.0 Hypertensive heart and chronic kidney disease with heart failure and stage 1 through stage 4 chronic kidney disease, or unspecified chronic kidney disease; E66.2 Morbid (severe) obesity with alveolar hypoventilation; Z68.43 Body mass index [BMI] 50.0-59.9, adult; L03.116 Cellulitis of left lower limb; L03.115 Cellulitis of right lower limb; I82.B11 Acute embolism and thrombosis of right subclavian vein; J93.9 Pneumothorax, unspecified; E87.0 Hyperosmolality and hypernatremia; E11.9 Type 2 diabetes mellitus without complications; M10.9 Gout, unspecified; E11.65 Type 2 diabetes mellitus with hyperglycemia; E11.42 Type 2 diabetes mellitus with diabetic polyneuropathy; F20.9 Schizophrenia, unspecified; Z20.822 Contact with and (suspected) exposure to COVID-19; R79.1 Abnormal coagulation profile; G89.29 Other chronic pain; N18.9 Chronic kidney disease, unspecified; K59.00 Constipation, unspecified; K21.9 Gastro-esophageal reflux disease without esophagitis; Z75.1 Person awaiting admission to adequate facility elsewhere; M19.90 Unspecified osteoarthritis, unspecified site; I70.0 Atherosclerosis of aorta; E21.0 Primary hyperparathyroidism; E78.5 Hyperlipidemia, unspecified; E87.5 Hyperkalemia; N93.9 Abnormal uterine and vaginal bleeding, unspecified; G47.00 Insomnia, unspecified; Z79.4 Long term (current) use of insulin
CPT/HCPCS: 36415; 36569; 36600; 70030-TC; 71045; 74018; 82652; 83605; 83615; 83735; 83970; 84100; 84155; 84165; 84443; 84478; 84550; 85025; 85610; 85730; 86140; 87040; 87070; 87086; 93005; 93307; 94002; 94003; 94640; 94660; 97161; A4663; A6209; G0378; J0330; J0360; J0696; J1120; J1650; J1815; J1940; J2060; J2270; J2430; J3370; J3475; J3480; J3490; J3590; J7040; J7050; J7060; J7070; P9047; Q9967; U0003

== ENCOUNTER 2025-02-01 13:09 | Emergency (ER) | payer MEDICARE, OTHER ==
[~2025-02-01] VITALS: Ht 170.2 cm; Wt 95.3 kg
[~2025-02-01 13:09] MED LIST: ACET325T53 PO; ALBU2.5V7 NEB; APIX5TAB PO; Blood Sugar Diagnostic VI; DEXT50DI8 IV; FAMO-132 PO; INSU100V28 SQ; IPRA0.2S6 NEB; Insulin Glargine,Hum SQ; LOSA50TA3 PO; MAGN400O6 PO; MENT113O TOP; MENT113O TP; MULT-594 PO; NA P133E RC; POLY17PO4 PO; TEMA15CA PO; Wheat Dextrin PO
[2025-02-01 17:07] VITALS: BP 136/59; TEMP 97.6; O2SAT 95
== END 2025-02-01 17:08 | disposition home or self-care (01) ==
LOC: ER 13:09
DX: S83.8X1A Sprain of other specified parts of right knee, initial encounter (principal); S93.691A Other sprain of right foot, initial encounter; M17.11 Unilateral primary osteoarthritis, right knee; M19.071 Primary osteoarthritis, right ankle and foot; E03.9 Hypothyroidism, unspecified; E11.22 Type 2 diabetes mellitus with diabetic chronic kidney disease; E66.01 Morbid (severe) obesity due to excess calories; E78.5 Hyperlipidemia, unspecified; I13.0 Hypertensive heart and chronic kidney disease with heart failure and stage 1 through stage 4 chronic kidney disease, or unspecified chronic kidney disease; I50.9 Heart failure, unspecified; N18.9 Chronic kidney disease, unspecified; M10.9 Gout, unspecified; K21.9 Gastro-esophageal reflux disease without esophagitis; J45.909 Unspecified asthma, uncomplicated; F20.9 Schizophrenia, unspecified; F32.9 Major depressive disorder, single episode, unspecified; Z79.899 Other long term (current) drug therapy; Z90.89 Acquired absence of other organs; Z87.2 Personal history of diseases of the skin and subcutaneous tissue; Z68.32 Body mass index [BMI] 32.0-32.9, adult; W01.0XXA Fall on same level from slipping, tripping and stumbling without subsequent striking against object, initial encounter; Y93.89 Activity, other specified; Y92.89 Other specified places as the place of occurrence of the external cause; Y99.8 Other external cause status
CPT/HCPCS: 73630; A4606; A4663